=== PATIENT | female | born 1925 | race Asian ===

== ENCOUNTER 2017-03-17 16:54 | Inpatient (IN) | payer MEDICARE, MEDICAID ==
[~2017-03-17] VITALS: Ht 162.6 cm; Wt 49.9 kg
[2017-03-17] MEDS ORDERED: Vancomycin 1 GM in NS 275 ML IV ONE (17:00)
[2017-03-17] MEDS ORDERED: Cefepime HCl 1 GM in NS 55 ML IV SCH (17:00)
[2017-03-17] MEDS ORDERED: XARELTO10 MG ORAL (17:16)
[2017-03-17] MEDS ORDERED: LACTULOSE20 GM/301 ORAL (17:16)
[2017-03-17] MEDS ORDERED: TYLENOL EXTRA500 MG ORAL (17:16)
[2017-03-17] MEDS ORDERED: NEURONTIN100 MG ORAL (17:16)
[2017-03-17] MEDS ORDERED: VITAMIN D22000 UNIT PO (17:16)
[2017-03-17] MEDS ORDERED: FERROUS SULFAT325 MG ORAL (17:16)
[2017-03-17] MEDS ORDERED: JANUMET 50-5001 EACH ORAL (17:16)
[2017-03-17] MEDS ORDERED: PRILOSEC OTC20 MG ORAL (17:16)
[2017-03-17] MEDS ORDERED: DULCOLAX10 MG RC (17:16)
[2017-03-17] MEDS ORDERED: Vancomycin 1gm inj IVPB ONE (18:29)
[2017-03-17] MEDS ORDERED: Cefepime 1gm vial ONE (18:30)
--- NOTE | 2017-03-17 18:39 | Emergency Room Report ---
History of Present Illness General Chief Complaint: Altered Level of Consciousness Source: Patient, Family Member, Medical Record Present Illness HPI Patient is a 89-year-old female brought in by EMS after increased fever and altered level consciousness. Patient had been [facility] in from [facility] after increased confusion. Patient had recent hospitalization for shingles. She had previously been given approximately 8 days worth of acyclovir. Patient had been noted to have prior history of multiple blood clots and was on Xarelto. She was reported fever up to 102. The patient is normally awake and alert and able to ambulate Allergies: Coded Allergies: No Known Allergies (Unverified , 03/17/17) Patient History Past Medical History: see triage record Reviewed Nursing Documentation: PMH: Agreed, PSxH: Agreed Nursing Documentation-PMH Past Medical History: No History, Except For Hx Hypertension: Yes Hx Diabetes: Yes Review of Systems All Other Systems: negative except mentioned in HPI Physical Exam Vital Signs Date Time Temp Pulse Resp B/P (MAP) Pulse Ox O2 Delivery O2 Flow Rate FiO2 03/17/17 16:45 99.1 126 18 127/59 96 Nasal Cannula 2.0 Sp02 EP Interpretation: reviewed, normal General Appearance: normal inspection, alert, moderate distress, Chronically Ill Head: atraumatic ENT: normal ENT inspection, hearing grossly normal, normal voice Neck: normal inspection, full range of motion, supple, no bony tend Respiratory: normal inspection, lungs clear, normal breath sounds, no respiratory distress, no retraction, no wheezing Cardiovascular #1: regular rate, rhythm, no edema Gastrointestinal: normal inspection, normal bowel sounds, non tender, soft, no guarding, no hernia Genitourinary: no CVA tenderness Musculoskeletal: normal inspection, back normal, normal range of motion Neurologic: normal inspection, alert, responsive, speech normal Psychiatric: normal inspection, judgement/insight normal, mood/affect normal Skin: normal inspection, other - healed shingles rash to right side of face Medical Decision Making Diagnostic Impression: Primary Impression: Sepsis Additional Impressions: Urinary tract infection Renal insufficiency History of shingles ER Course Patient presented for fever. Differential diagnosis included wasn't limited to pneumonia, urinary tract infection, drug fever, allergic reaction, sepsis, cholecystitis, among others.Because of complexity of patient's case laboratory testing and imaging studies were ordered. Patient given IV fluid. Patient was noted to have improvement in her mental status and perfusion after IV fluids were given. Dr. Jus Cool was contacted for inpatient management due to primary care physician. Labs Test 03/17/17 17:40 03/17/17 18:00 03/17/17 18:20 Arterial Blood pH 7.441 (7.350-7.450) Arterial Blood Partial Pressure CO2 29.9 mmHg (35.0-45.0) Arterial Blood Partial Pressure O2 70.4 mmHg (75.0-100.0) Arterial Blood HCO3 19.9 mmol/L (22.0-26.0) Arterial Blood Oxygen Saturation 93.9 % (92.0-98.0) Arterial Blood Base Excess -3.3 Girma Test Positive White Blood Count 20.1 K/UL (4.8-10.8) Red Blood Count 3.43 M/UL (4.20-5.40) Hemoglobin 11.0 G/DL (12.0-16.0) Hematocrit 33.8 % (37.0-47.0) Mean Corpuscular Volume 98 FL (80-99) Mean Corpuscular Hemoglobin 32.2 PG (27.0-31.0) Mean Corpuscular Hemoglobin Concent 32.7 G/DL (32.0-36.0) Red Cell Distribution Width 13.8 % (11.6-14.8) Platelet Count 347 K/UL (150-450) Mean Platelet Volume 5.9 FL (6.5-10.1) Neutrophils (%) (Auto) % (45.0-75.0) Lymphocytes (%) (Auto) % (20.0-45.0) Monocytes (%) (Auto) % (1.0-10.0) Eosinophils (%) (Auto) % (0.0-3.0) Basophils (%) (Auto) % (0.0-2.0) Differential Total Cells Counted 100 Neutrophils % (Manual) 86 % (45-75) Lymphocytes % (Manual) 10 % (20-45) Monocytes % (Manual) 4 % (1-10) Eosinophils % (Manual) 0 % (0-3) Basophils % (Manual) 0 % (0-2) Band Neutrophils 0 % (0-8) Platelet Estimate Adequate Platelet Morphology Normal Polychromasia 1+ Anisocytosis 1+ Macrocytosis 1+ Prothrombin Time 11.3 SEC (9.30-11.50) Prothromb Time International Ratio 1.1 (0.9-1.1) Activated Partial Thromboplast Time 42 SEC (23-33) Sodium Level 135 MMOL/L (136-145) Potassium Level 4.7 MMOL/L (3.5-5.1) Chloride Level 101 MMOL/L (98-107) Carbon Dioxide Level 24 MMOL/L (21-32) Anion Gap 10 mmol/L (5-15) Blood Urea Nitrogen 41 mg/dL (7-18) Creatinine 2.9 MG/DL (0.55-1.30) Estimat Glomerular Filtration Rate mL/min (>60) Glucose Level 138 MG/DL (74-106) Lactic Acid Level 1.30 mmol/L (0.66-2.22) Calcium Level 9.1 MG/DL (8.5-10.1) Phosphorus Level 4.0 MG/DL (2.5-4.9) Magnesium Level 2.2 MG/DL (1.8-2.4) Total Bilirubin 0.6 MG/DL (0.2-1.0) Aspartate Amino Transf (AST/SGOT) 53 U/L (15-37) Alanine Aminotransferase (ALT/SGPT) 54 U/L (12-78) Alkaline Phosphatase 151 U/L (46-116) Total Creatine Kinase 15 U/L (26-308) Creatine Kinase MB < 0.5 NG/ML (0.0-3.6) Creatine Kinase MB Relative Index 3.3 Troponin I 0.000 ng/mL (0.000-0.056) Pro-B-Type Natriuretic Peptide 170 pg/mL (0-125) Total Protein 7.4 G/DL (6.4-8.2) Albumin 2.8 G/DL (3.4-5.0) Globulin 4.6 g/dL Albumin/Globulin Ratio 0.6 (1.0-2.7) Lipase 222 U/L (73-393) Urine Color Pale yellow Urine Appearance Cloudy Urine pH 6 (4.5-8.0) Urine Specific [place] 1.005 (1.005-1.035) Urine Protein 3+ (NEGATIVE) Urine Glucose (UA) Negative (NEGATIVE) Urine Ketones Negative (NEGATIVE) Urine Occult Blood 4+ (NEGATIVE) Urine Nitrite Negative (NEGATIVE) Urine Bilirubin Negative (NEGATIVE) Urine Urobilinogen Normal MG/DL (0.0-1.0) Urine Leukocyte Esterase 3+ (NEGATIVE) Urine RBC 5-10 /HPF (0 - 2) Urine WBC Tntc /HPF (0 - 2) Urine Squamous Epithelial Cells Occasional /LPF Urine Bacteria Many /HPF (NONE) EKG Diagnostic Results Rate: tachycardiac Rhythm: NSR ST Segments: no acute changes Last Vital Signs Date Time Temp Pulse Resp B/P (MAP) Pulse Ox O2 Delivery O2 Flow Rate FiO2 03/17/17 16:45 99.1 126 18 127/59 96 Nasal Cannula 2.0 Status: improved Disposition: ADMITTED INPATIENT Condition: Serious Referrals: JUS COOL (PCP) Rodo Chavarria Mar 17, 2017 18:39
[2017-03-17 18:44] VITALS: BP 117/43
[2017-03-17 18:47] LABS: HEMATOCRIT 33.8 % (37.0-47.0); MEAN CORPUSCULAR VOLUME 98 FL (80-99); PLATELET COUNT 347 K/UL (150-450); RED BLOOD COUNT 3.43 M/UL (4.20-5.40); RED CELL DISTRIBUTION WIDTH 13.8 % (11.6-14.8); WHITE BLOOD COUNT 20.1 K/UL (4.8-10.8)
[2017-03-17] MEDS ORDERED: SENOKOT8.6 MG PO (18:47)
[2017-03-17] MEDS ORDERED: DOCUSATE SODIU100 MG ORAL (18:47)
[2017-03-17 18:50] LABS: APPEARANCE,URINE CLOUDY; BILIRUBIN, URINE NEGATIVE (NEGATIVE); COLOR,URINE PALE YELLOW; GLUCOSE, URINE (UA) NEGATIVE (NEGATIVE); KETONES,URINE NEGATIVE (NEGATIVE); LEUKOCYTE ESTERASE ,URINE 3+ (NEGATIVE); NITRITE,URINE NEGATIVE (NEGATIVE); PH,URINE 6 (4.5-8.0); PROTEIN,URINE 3+ (NEGATIVE); UROBILINOGEN,URINE NORMAL MG/DL (0.0-1.0)
[2017-03-17] MEDS ORDERED: FERROUS SU220 MG/53 PO (18:52)
[2017-03-17 18:57] LABS: ANION GAP 10 mmol/L (5-15); BLOOD UREA NITROGEN 41 mg/dL (7-18); CALCIUM 9.1 MG/DL (8.5-10.1); CARBON DIOXIDE 24 MMOL/L (21-32); CHLORIDE 101 MMOL/L (98-107); CREATININE 2.9 MG/DL (0.55-1.30); POTASSIUM 4.7 MMOL/L (3.5-5.1); SODIUM 135 MMOL/L (136-145)
[2017-03-17 19:00] LABS: INR 1.1 (0.9-1.1)
[2017-03-17] MEDS ORDERED: PREDNISOLONE ACE5 ML RIGHT EYE (19:03)
[2017-03-17] MEDS ORDERED: XARELTO15 MG ORAL (19:03)
[2017-03-17] MEDS ORDERED: ERYTHROMYCIN3.5 GM BOTH EYES (19:05)
[2017-03-17 19:11] LABS: ALANINE AMINOTRANSFERASE 54 U/L (12-78); ALBUMIN 2.8 G/DL (3.4-5.0); ALBUMIN/GLOBULIN RATIO 0.6 (1.0-2.7); ALKALINE PHOSPHATASE 151 U/L (46-116); ASPARTATE AMINO TRANSFERASE 53 U/L (15-37); BILIRUBIN,TOTAL 0.6 MG/DL (0.2-1.0); CKMB < 0.5 NG/ML (0.0-3.6); CREATINE KINASE 15 U/L (26-308)
[2017-03-17 20:40] VITALS: BP 120/94
[2017-03-17 21:00] VITALS: BP 112/68
[2017-03-17] MEDS ORDERED: Sennosides 8.6mg ORAL PRN (22:30)
[2017-03-18 00:02] VITALS: BP 91/45
[2017-03-18] MEDS ORDERED: Zosyn 3.375gm inj ONE (00:17)
[2017-03-18] MEDS: Piperacillin/Tazobactam 3.375 GM in D5W 110 ML IVPB SCH ×3 (00:32→23:56)
[2017-03-18 04:00] VITALS: BP 105/56
[2017-03-18] MEDS ORDERED: Acyclovir 500mg Vial IV ONE (04:27)
[2017-03-18] MEDS: Acyclovir 500 MG in D5W 110 ML IV SCH (06:05)
[2017-03-18] MEDS: NovoLOG Insulin Flexpen SUBQ SCH ×4 (06:11→21:00)
[2017-03-18] MEDS ORDERED: NovoLOG Insulin Flexpen SUBQ SCH (06:30)
[2017-03-18 08:00] VITALS: BP 141/64
[2017-03-18] MEDS: Docusate 100mg cap ORAL SCH ×2 (08:09→17:01)
[2017-03-18] MEDS: Vitamin D 1000 IU Tab ORAL SCH (08:10)
--- NOTE | 2017-03-18 09:14 | Diagnostic Imaging Report ---
Indication: Altered mental status Technique: Continuous helical CT scanning of the head was performed utilizing automated exposure control without intravenous contrast material. Axial and coronal reconstructions were obtained. Comparison: None CT dose: Total DLP 1372 mGycm; CTDI vol 70.5 mGy Findings: There is no acute intracranial hemorrhage, mass effect or midline shift. There is low-attenuation in the left basal ganglia which likely represents sequela of ischemia, age indeterminate but likely chronic. Acute on chronic ischemia cannot be excluded. The ventricles, cisterns and sulci are prominent consistent with atrophy. Periventricular hypoattenuation is seen, a nonspecific finding. Visualized mastoid air cells and paranasal sinuses are unremarkable. No focal lesions of the bony calvarium or soft tissues of the scalp are seen. Atherosclerotic vessel calcifications noted. Impression: No evidence of acute intracranial hemorrhage, mass effect or shift. Focal low-attenuation in the left basal ganglia representing sequela of age-indeterminate ischemia, possibly chronic. Acute on chronic ischemia cannot be excluded. Correlate clinically. MRI may be obtained for more sensitive evaluation as clinically indicated. Atrophy and nonspecific periventricular hypoattenuation suggestive of chronic ischemic microvascular changes. This corresponds with the statrad preliminary report with minor discrepancy. Findings of the report discussed with the treating nurse on 2E via telephone conversation 9:00 AM on 03/18/2017. RN to convey findings to covering physician. The CT scanner at [facility] is accredited by the [employer] and the scans are performed using protocols designed to limit radiation exposure to as low as reasonably achievable to attain images of sufficient resolution adequate for diagnostic evaluation.
--- NOTE | 2017-03-18 10:15 | Diagnostic Imaging Report ---
Indication: Dyspnea Technique: XRAY Chest 1v Comparison: None Findings: Heart size within normal limits. Atherosclerotic calcifications noted in the aorta. There is patchy right basilar atelectasis. Otherwise there is no focal airspace consolidation, pleural effusion or pneumothorax. There is osteopenia and degenerative change of the spine. No acute osseous abnormality seen. Impression: Patchy right basilar atelectasis. Otherwise, no focal consolidation, pleural effusion or pneumothorax. Study obtained via the emergency department however patient admitted to the hospital at time of dictation of the final report.
[2017-03-18 11:28] LABS: HEMATOCRIT 26.3 % (37.0-47.0); HEMOGLOBIN 8.7 G/DL (12.0-16.0); MEAN CORPUSCULAR VOLUME 99 FL (80-99); PLATELET COUNT 257 K/UL (150-450); RED BLOOD COUNT 2.66 M/UL (4.20-5.40); RED CELL DISTRIBUTION WIDTH 14.3 % (11.6-14.8); WHITE BLOOD COUNT 16.6 K/UL (4.8-10.8)
[2017-03-18 11:39] LABS: ALANINE AMINOTRANSFERASE 31 U/L (12-78); ALBUMIN 2.1 G/DL (3.4-5.0); ALBUMIN/GLOBULIN RATIO 0.5 (1.0-2.7); ALKALINE PHOSPHATASE 115 U/L (46-116); ANION GAP 10 mmol/L (5-15); ASPARTATE AMINO TRANSFERASE 29 U/L (15-37); BILIRUBIN,TOTAL 0.3 MG/DL (0.2-1.0); BLOOD UREA NITROGEN 48 mg/dL (7-18); CALCIUM 7.7 MG/DL (8.5-10.1); CARBON DIOXIDE 20 MMOL/L (21-32); CHLORIDE 105 MMOL/L (98-107); CREATININE 3.1 MG/DL (0.55-1.30); POTASSIUM 4.9 MMOL/L (3.5-5.1); SODIUM 135 MMOL/L (136-145)
[2017-03-18 12:00] VITALS: BP 132/64
[2017-03-18] MEDS ORDERED: NS 500ML ONE (13:43)
[2017-03-18] MEDS ORDERED: Tubing IV Secondary IV ONE (13:43)
[2017-03-18 16:00] VITALS: BP 146/75
--- NOTE | 2017-03-18 18:00 | History and Physical Report ---
DATE OF ADMISSION: 03/18/2017 CHIEF COMPLAINT: Altered mental status and fevers. HISTORY OF PRESENT ILLNESS: The patient is an 89-year-old female. She has a history of hypertension and diabetes, who is [facility] with complaints of altered mental status, fevers, and chills. Recent history is significant for shingles on the right synagogue and face that developed on 02/20/2017. The patient was initially treated as an outpatient, but had worsening weakness and eventually had a fall. She was brought down to stay with family members in [place], but developed worsening shortness of breath and lethargy. She was taken to [facility] in [place] where she was diagnosed with a large PE. There was also concern about meningitis, but a lumbar puncture could not be performed as the patient was on anticoagulants and heparin. She was treated empirically. She improved and was eventually transferred back to alcohol rehabilitation for rehabilitation therapy. She was doing well until the day of admission, but family members noted that she was weak. She had rigors and chills and was transferred to the emergency room. On evaluation there, head CT was relatively unremarkable. There was some questionable focal low-attenuation abnormality in the left basal ganglia. The white count there was 20,000. UA had too numerous to count WBCs. Creatinine also was elevated at 2.9. The patient has been pancultured and has been started on antibiotic therapy and is now admitted for further inpatient evaluation and care. PAST MEDICAL HISTORY: As above. PAST SURGICAL HISTORY: None. CURRENT MEDICATIONS: Reconciled and reviewed. FAMILY HISTORY: None. SOCIAL HISTORY: Negative for tobacco, ethanol, or drugs. REVIEW OF SYSTEMS: Difficult to obtain as the patient is somewhat somnolent. PHYSICAL EXAMINATION: VITAL SIGNS: Temperature 99.9, pulse 132, respirations 16, and blood pressure 141/64. GENERAL: The patient is a well-developed female, in no apparent distress. She does open eyes and follow some simple commands. There is some rash and scar over the right synagogue. There are no blisters noted. NECK: Supple. There is no adenopathy. HEART: Regular rate and rhythm. LUNGS: Clear. ABDOMEN: Soft, nontender, and nondistended. EXTREMITIES: Without clubbing, cyanosis, or edema. NEUROLOGIC: The patient moves all four extremities. She does follow commands. LABORATORY DATA: White count was 20, hemoglobin 11, hematocrit 33, and platelet count of 347,000. INR was 1.1 with a PTT of 42. Sodium 135, potassium 4.7, chloride 101, bicarb 24, BUN 41, and creatinine 2.9. Lactic acid was 1.3. UA showed too numerous to count WBCs. ASSESSMENT: 1. This is a pleasant female with a history of pulmonary embolism, hypertension, diabetes, and history of recent possible viral encephalitis, admitted with fevers likely secondary to urinary tract infection, probable sepsis. 2. Urinary tract infection. 3. 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 PLAN: 1. IV hydration. 2. Broad-spectrum IV antibiotic therapy. 3. ID and Urology consultations to be obtained. 4. We will monitor renal function. 5. Check renal ultrasound. 6. Plan of care was discussed with the patient's family at the bedside. Terry Piña M.D. DR: YSABEL JOB#: [id number] CC:
[2017-03-18 20:00] VITALS: BP 130/64
[2017-03-18] MEDS ORDERED: Dyna-Hex 2% Top Sol 2oz TOPIC SCH (20:00)
[2017-03-18] MEDS: Eliquis 2.5mg tablet ORAL SCH (22:16)
[2017-03-19] VITALS: BP 127/58
[2017-03-19 04:00] VITALS: BP 142/64
[2017-03-19] MEDS: Acyclovir 500 MG in D5W 110 ML IV SCH (06:05)
[2017-03-19] MEDS: NovoLOG Insulin Flexpen SUBQ SCH ×4 (06:06→20:24)
[2017-03-19 08:00] VITALS: BP 150/74
[2017-03-19] MEDS: Eliquis 2.5mg tablet ORAL SCH ×2 (09:02→18:31)
[2017-03-19] MEDS: Vitamin D 1000 IU Tab ORAL SCH (09:02)
[2017-03-19] MEDS: Docusate 100mg cap ORAL SCH ×2 (09:02→18:32)
[2017-03-19 09:20] LABS: HEMATOCRIT 28.4 % (37.0-47.0); HEMOGLOBIN 9.2 G/DL (12.0-16.0); MEAN CORPUSCULAR VOLUME 101 FL (80-99); PLATELET COUNT 261 K/UL (150-450); RED BLOOD COUNT 2.82 M/UL (4.20-5.40); RED CELL DISTRIBUTION WIDTH 14.6 % (11.6-14.8); WHITE BLOOD COUNT 13.7 K/UL (4.8-10.8)
[2017-03-19 10:01] LABS: ALANINE AMINOTRANSFERASE 33 U/L (12-78); ALBUMIN 2.1 G/DL (3.4-5.0); ALBUMIN/GLOBULIN RATIO 0.5 (1.0-2.7); ALKALINE PHOSPHATASE 168 U/L (46-116); ANION GAP 13 mmol/L (5-15); ASPARTATE AMINO TRANSFERASE 41 U/L (15-37); BILIRUBIN,TOTAL 0.4 MG/DL (0.2-1.0); BLOOD UREA NITROGEN 55 mg/dL (7-18); CALCIUM 7.6 MG/DL (8.5-10.1); CARBON DIOXIDE 17 MMOL/L (21-32); CHLORIDE 108 MMOL/L (98-107); CREATININE 4.3 MG/DL (0.55-1.30); POTASSIUM 4.4 MMOL/L (3.5-5.1); SODIUM 138 MMOL/L (136-145)
[2017-03-19 12:00] VITALS: BP 162/93
[2017-03-19] MEDS: Piperacillin/Tazobactam 3.375 GM in D5W 110 ML IVPB SCH ×2 (12:19→23:42)
--- NOTE | 2017-03-19 12:51 | General Progress Note ---
Assessment/Plan Problem List: (1) Urinary tract infection ICD Codes: N39.0 - Urinary tract infection, site not specified SNOMED: 07468616 (2) Renal insufficiency ICD Codes: N28.9 - Disorder of kidney and ureter, unspecified SNOMED: 872538902, 070330723 (3) History of shingles ICD Codes: Z86.19 - Personal history of other infectious and parasitic diseases SNOMED: 892955108954426 (4) Sepsis ICD Codes: A41.9 - Sepsis, unspecified organism SNOMED: 25156298 Status: stable Assessment/Plan abx per id follow up cultures ivf cartwright Subjective ROS Limited/Unobtainable: No Constitutional: Reports: malaise, weakness HEENT: Reports: no symptoms Cardiovascular: Reports: no symptoms Respiratory: Reports: cough Gastrointestinal/Abdominal: Reports: no symptoms Genitourinary: Reports: no symptoms Neurologic/Psychiatric: Reports: pre-existing deficit Endocrine: Reports: no symptoms Hematologic/Lymphatic: Reports: no symptoms Allergies: Coded Allergies: No Known Allergies (Unverified , 03/17/17) All Systems: reviewed and negative except above Subjective +blood cultures with gnr. worsening renal insuff. no fevers. wbc trending down Objective Last 24 Hour Vital Signs Date Time Temp Pulse Resp B/P (MAP) Pulse Ox O2 Delivery O2 Flow Rate FiO2 03/19/17 08:00 97.5 92 20 150/74 96 Nasal Cannula 03/19/17 06:11 Nasal Cannula 3.0 32 03/19/17 06:11 97 Nasal Cannula 3.0 32 03/19/17 04:00 110 03/19/17 04:00 97.2 110 16 142/64 99 Nasal Cannula 03/19/17 00:00 99.5 115 16 127/58 96 Nasal Cannula 03/19/17 00:00 112 03/18/17 20:00 99.5 116 20 130/64 96 03/18/17 20:00 111 03/18/17 16:00 104 03/18/17 16:00 98.8 119 22 146/75 94 Nasal Cannula 2.0 Intake and Output 03/18/17 03/19/17 19:00 07:00 Intake Total 100 ml 1000 ml Balance 100 ml 1000 ml IV Total 100 ml 1000 ml # Voids 1 1 # Bowel Movements 1 1 Laboratory Tests 03/19/17 09:00: White Blood Count 13.7H, Red Blood Count 2.82L, Hemoglobin 9.2L, Hematocrit 28.4L, Mean Corpuscular Volume 101H, Mean Corpuscular Hemoglobin 32.7H, Mean Corpuscular Hemoglobin Concent 32.4, Red Cell Distribution Width 14.6, Platelet Count 261, Mean Platelet Volume 5.8L, Neutrophils (%) (Auto) , Lymphocytes (%) ( Auto) , Monocytes (%) (Auto) , Eosinophils (%) (Auto) , Basophils (%) (Auto) , Differential Total Cells Counted 100, Neutrophils % (Manual) 86H, Lymphocytes % (Manual) 5L, Monocytes % (Manual) 9, Eosinophils % (Manual) 0, Basophils % ( Manual) 0, Band Neutrophils 0, Platelet Estimate Adequate, Platelet Morphology Normal, Hypochromasia 1+, Anisocytosis 1+, Macrocytosis 1+, Sodium Level 138, Potassium Level 4.4, Chloride Level 108H, Carbon Dioxide Level 17L, Anion Gap 13 , Blood Urea Nitrogen 55H, Creatinine 4.3H, Estimat Glomerular Filtration Rate , Glucose Level 178H, Calcium Level 7.6L, Total Bilirubin 0.4, Aspartate Amino Transf (AST/SGOT) 41H, Alanine Aminotransferase (ALT/SGPT) 33, Alkaline Phosphatase 168H, Total Protein 6.5, Albumin 2.1L, Globulin 4.4, Albumin/ Globulin Ratio 0.5L Height (Feet): 5 Height (Inches): 4.00 Weight (Pounds): 110 General Appearance: WD/WN Neck: supple Cardiovascular: normal rate, regular rhythm Respiratory/Chest: chest wall non-tender, lungs clear, normal breath sounds, no respiratory distress Abdomen: normal bowel sounds, non tender, soft, no organomegaly Edema: no edema noted Arm (L), no edema noted Arm (R), no edema noted Leg (L), no edema noted Leg (R), no edema noted Pedal (L), no edema noted Pedal (R), no edema noted Generalized Neurologic: alert, responsive NOE TRAVIS Mar 19, 2017 12:51
[2017-03-19 16:00] VITALS: BP 115/56
--- NOTE | 2017-03-19 17:03 | Consultation ---
DATE OF CONSULTATION: 03/19/2017 INFECTIOUS DISEASE CONSULTATION This consult is for coverage of Dr. Chew. CONSULTING PHYSICIAN: Dewayne Whyte M.D. PRIMARY ATTENDING PHYSICIAN: Terry Piña M.D. REASON FOR CONSULT: Gram-negative sepsis, UTI. HISTORY OF PRESENT ILLNESS: This is an 89-year-old [place] female, admitted on 03/17/2017 from a correction facility because of altered mental status and fever. The patient has a temperature up to 102.4 in hospital, was tachycardic with a heart rate up to 138, had leukocytosis of 20,000 at the time of admission. PAST MEDICAL HISTORY: Significant for recent pulmonary emboli, facial herpes zoster, but the patient was also suspected for encephalitis, had diabetes mellitus and hypertension. ALLERGIES: No known drug allergies. MEDICATIONS: Apixaban, Protonix, Colace, , insulin, IV acyclovir, Zosyn, Senokot, and Tylenol. SOCIAL HISTORY: No history of alcohol, drug abuse, or smoking. . REVIEW OF SYSTEMS: The patient denies any fever, coughing, shortness of breath, or problem passing urine. PHYSICAL EXAMINATION: VITAL SIGNS: Temperature 97.5, pulse 92, and blood pressure 150/74. HEAD AND NECK: Has healed rash in the right side of the face. HEART: Regular. LUNGS: Coarse sounds. ABDOMEN: Soft and nontender. EXTREMITIES: Has no edema. NEUROLOGIC: She is awake, verbal, very slow to respond. LABORATORY AND DIAGNOSTIC DATA: WBC 16.6, hemoglobin 8.7, hematocrit 26.3, and platelets 257,000. Sodium 135, potassium 4.9, chloride 105, bicarbonate 20, BUN 48, creatinine 3.1, and glucose is 209. Urine culture growing gram-negative rods. Blood cultures : gram-negative rods. Influenza A and B were negative. Chest x-ray, acute basilar atelectasis. CT scan of the head, atrophy. IMPRESSION: 1. Gram-negative sepsis, likely secondary to urinary tract infection. or line ifection 2. The patient has a recent history of herpes zoster with suspension of encephalitis. 3. Renal failure. 4. Diabetes mellitus. 5. Hypertension. 6. Anemia. RECOMMENDATION: We will continue acyclovir & Zosyn. Midline will be removed today. We will follow up the culture. At the end of my exam, I thank Dr. Piña for involving me in the care of this patient. Dewayne Whyte M.D. DR: MICHAEL JOB#: [id number] CC: AISHA
[2017-03-19 20:00] VITALS: BP 142/69
[2017-03-20] VITALS: BP 165/83
[2017-03-20 04:00] VITALS: BP 158/75
[2017-03-20] MEDS: Acyclovir 500 MG in D5W 110 ML IV SCH (05:42)
[2017-03-20] MEDS: NovoLOG Insulin Flexpen SUBQ SCH ×4 (05:48→21:20)
[2017-03-20 08:00] VITALS: BP 161/75
[2017-03-20] MEDS: Docusate 100mg cap ORAL SCH ×2 (08:12→17:23)
[2017-03-20] MEDS: Vitamin D 1000 IU Tab ORAL SCH (08:13)
[2017-03-20] MEDS: Eliquis 2.5mg tablet ORAL SCH ×2 (08:14→17:23)
[2017-03-20 11:07] LABS: HEMATOCRIT 31.8 % (37.0-47.0); HEMOGLOBIN 10.2 G/DL (12.0-16.0); MEAN CORPUSCULAR VOLUME 100 FL (80-99); PLATELET COUNT 271 K/UL (150-450); RED BLOOD COUNT 3.17 M/UL (4.20-5.40); RED CELL DISTRIBUTION WIDTH 14.4 % (11.6-14.8); WHITE BLOOD COUNT 11.2 K/UL (4.8-10.8)
[2017-03-20] MEDS: Piperacillin/Tazobactam 3.375 GM in D5W 110 ML IVPB SCH (11:48)
[2017-03-20 11:57] LABS: ALANINE AMINOTRANSFERASE 68 U/L (12-78); ALBUMIN 2.2 G/DL (3.4-5.0); ALBUMIN/GLOBULIN RATIO 0.5 (1.0-2.7); ALKALINE PHOSPHATASE 246 U/L (46-116); ANION GAP 11 mmol/L (5-15); ASPARTATE AMINO TRANSFERASE 74 U/L (15-37); BILIRUBIN,TOTAL 0.3 MG/DL (0.2-1.0); BLOOD UREA NITROGEN 45 mg/dL (7-18); CALCIUM 8.7 MG/DL (8.5-10.1); CARBON DIOXIDE 24 MMOL/L (21-32); CHLORIDE 112 MMOL/L (98-107); CREATININE 2.9 MG/DL (0.55-1.30); POTASSIUM 3.9 MMOL/L (3.5-5.1); SODIUM 147 MMOL/L (136-145)
[2017-03-20 12:00] VITALS: BP 162/78
--- NOTE | 2017-03-20 12:43 | General Progress Note ---
Assessment/Plan Problem List: (1) Urinary tract infection ICD Codes: N39.0 - Urinary tract infection, site not specified SNOMED: 13389496 (2) Renal insufficiency ICD Codes: N28.9 - Disorder of kidney and ureter, unspecified SNOMED: 470725359, 471929227 (3) History of shingles ICD Codes: Z86.19 - Personal history of other infectious and parasitic diseases SNOMED: 994719924259658 (4) Sepsis ICD Codes: A41.9 - Sepsis, unspecified organism SNOMED: 91657130 Status: stable, progressing Assessment/Plan iv abx per id follow up cultures ivf cartwright bp rx Subjective ROS Limited/Unobtainable: No Constitutional: Reports: malaise, weakness HEENT: Reports: no symptoms Cardiovascular: Reports: no symptoms Respiratory: Reports: no symptoms Gastrointestinal/Abdominal: Reports: poor appetite Genitourinary: Reports: no symptoms Neurologic/Psychiatric: Reports: pre-existing deficit Endocrine: Reports: no symptoms Hematologic/Lymphatic: Reports: anemia Allergies: Coded Allergies: No Known Allergies (Unverified , 03/17/17) All Systems: reviewed and negative except above Subjective +blood cultures and ucx with esbl ecoli. cartwright placed with 6 liters PVR. renal fxn now improving. Objective Last 24 Hour Vital Signs Date Time Temp Pulse Resp B/P (MAP) Pulse Ox O2 Delivery O2 Flow Rate FiO2 03/20/17 12:00 97.7 105 20 162/78 98 Nasal Cannula 2.0 03/20/17 08:00 124 03/20/17 08:00 97.5 109 19 161/75 98 Nasal Cannula 2.0 03/20/17 04:00 98.1 101 18 158/75 98 Nasal Cannula 03/20/17 04:00 98 03/20/17 00:00 90 03/20/17 00:00 98.8 102 18 165/83 98 Nasal Cannula 03/19/17 20:00 97.3 96 18 142/69 100 Nasal Cannula 03/19/17 20:00 94 03/19/17 16:00 98.0 18 115/56 99 Nasal Cannula 03/19/17 16:00 85 Intake and Output 03/19/17 03/20/17 19:00 07:00 Intake Total 120 ml 310.0 ml Output Total 6100 ml Balance 120 ml -5790.0 ml Intake Oral 120 ml 100 ml IV Total 210.0 ml Output Urine Total 6100 ml # Voids 2 # Bowel Movements 1 1 Laboratory Tests 03/20/17 04:49: Urine Osmolality 284L, Urine Random Sodium 107 03/20/17 10:15: White Blood Count 11.2H, Red Blood Count 3.17L, Hemoglobin 10.2L, Hematocrit 31.8L, Mean Corpuscular Volume 100H, Mean Corpuscular Hemoglobin 32.3H, Mean Corpuscular Hemoglobin Concent 32.2, Red Cell Distribution Width 14.4, Platelet Count 271, Mean Platelet Volume 6.0L, Neutrophils (%) (Auto) , Lymphocytes (%) ( Auto) , Monocytes (%) (Auto) , Eosinophils (%) (Auto) , Basophils (%) (Auto) , Differential Total Cells Counted 100, Neutrophils % (Manual) 85H, Lymphocytes % (Manual) 7L, Monocytes % (Manual) 7, Eosinophils % (Manual) 1, Basophils % ( Manual) 0, Band Neutrophils 0, Platelet Estimate Adequate, Platelet Morphology Normal, Hypochromasia 1+, Sodium Level 147H, Potassium Level 3.9, Chloride Level 112H, Carbon Dioxide Level 24, Anion Gap 11, Blood Urea Nitrogen 45H, Creatinine 2.9H, Estimat Glomerular Filtration Rate , Glucose Level 216H, Uric Acid 4.2, Calcium Level 8.7, Total Bilirubin 0.3, Aspartate Amino Transf (AST/ SGOT) 74H, Alanine Aminotransferase (ALT/SGPT) 68, Alkaline Phosphatase 246H, Total Protein 7.0, Albumin 2.2L, Globulin 4.8, Albumin/Globulin Ratio 0.5L Height (Feet): 5 Height (Inches): 4.00 Weight (Pounds): 110 Objective General Appearance: WD/WN Neck: supple Cardiovascular: normal rate, regular rhythm Respiratory/Chest: chest wall non-tender, lungs clear, normal breath sounds, no respiratory distress Abdomen: normal bowel sounds, non tender, soft, no organomegaly Edema: no edema noted Arm (L), no edema noted Arm (R), no edema noted Leg (L), no edema noted Leg (R), no edema noted Pedal (L), no edema noted Pedal (R), no edema noted Generalized Neurologic: alert, responsive NOE TRAVIS Mar 20, 2017 12:43
--- NOTE | 2017-03-20 12:46 | Wound Care Consultation ---
Wound Assessment Wound Assessment : Wound Number: 1 Wound Present on Admission: Yes New Wound: No Status Change of Wound: No Wound Location Body Site Modif: mid Wound Location Body Site: other - Sacrococcygeal Wound Type: pressure ulcer Marilynn Test: Does not Marilynn Pressure Ulcer Stage: Deep Tissue Injury Wound Thickness: Full Thickness Wound Length: 4.5 Wound Width: 6.5 Wound Depth: utd Percent of Wound Purple/Maroon: 100 Wound Drainage Amount: None Wound Drainage Odor: None/Absent Tissue Surrounding Wound: Erythemic Wound General Appearance: Reddened - maroon Wound Comment #1 Sacrococcygeal DTI pressure ulcer Recommendation -Local wound care per protocol -Keep clean and dry -Turn and reposition -Offload both heels -Heel protector on both heels -Optimize nutrition -Low air loss mattress -Assess f/u accordingly for any changes CASIMIRO MEYERS RN Mar 20, 2017 12:46
--- NOTE | 2017-03-20 12:47 | Infectious Diseases Prog Note ---
Assessment/Plan Assessment/Plan A; E. coli ESBL sepsis E. 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 Acute renal failure Anemia P; Continue Zosyn May discontinue Acyclovir Subjective ROS Limited/Unobtainable: Yes Constitutional: Reports: no symptoms Cardiovascular: Reports: other - midline was removed Gastrointestinal/Abdominal: Reports: other - Polk catheter was placed yesterday Allergies: Coded Allergies: No Known Allergies (Unverified , 03/17/17) Objective Vital Signs Last 24 Hour Vital Signs Date Time Temp Pulse Resp B/P (MAP) Pulse Ox O2 Delivery O2 Flow Rate FiO2 03/20/17 12:00 97.7 105 20 162/78 98 Nasal Cannula 2.0 03/20/17 08:00 124 03/20/17 08:00 97.5 109 19 161/75 98 Nasal Cannula 2.0 03/20/17 04:00 98.1 101 18 158/75 98 Nasal Cannula 03/20/17 04:00 98 03/20/17 00:00 90 03/20/17 00:00 98.8 102 18 165/83 98 Nasal Cannula 03/19/17 20:00 97.3 96 18 142/69 100 Nasal Cannula 03/19/17 20:00 94 03/19/17 16:00 98.0 18 115/56 99 Nasal Cannula 03/19/17 16:00 85 Height (Feet): 5 Height (Inches): 4.00 Weight (Pounds): 110 General Appearance: no acute distress HEENT: mucous membranes moist Respiratory/Chest: lungs clear Cardiovascular: tachycardia Abdomen: soft, non tender Extremities: no edema Neurologic/Psychiatric: alert, responsive Microbiology Date/Time Source Procedure Growth Status 03/17/17 18:00 Blood Blood Culture - Final Escherichia Coli - Esbl Complete 03/17/17 17:55 Blood Blood Culture - Final Escherichia Coli - Esbl Complete 03/17/17 18:00 Nasal Nares Influenza Types A,B Antigen (HANNAH) - Final Complete 03/17/17 17:50 Nasal Nares MRSA Culture - Final NO METHICILLIN RESISTANT STAPH AUREUS... Complete 03/17/17 18:20 Urine,Clean Catch Urine Culture - Final Escherichia Coli - Esbl Complete 03/19/17 09:55 Arm Right Catheter Tip Culture - Preliminary NO GROWTH Resulted 03/17/17 17:50 Rectum VRE Culture - Final NO VANCOMYCIN RESISTANT ENTEROCOCCUS ... Complete Laboratory Tests Test 03/20/17 04:49 03/20/17 10:15 Urine Osmolality 284 mOsm/kg (429-449) L Urine Random Sodium 107 MEQ/L (20-110) White Blood Count 11.2 K/UL (4.8-10.8) H Red Blood Count 3.17 M/UL (4.20-5.40) L Hemoglobin 10.2 G/DL (12.0-16.0) L Hematocrit 31.8 % (37.0-47.0) L Mean Corpuscular Volume 100 FL (80-99) H Mean Corpuscular Hemoglobin 32.3 PG (27.0-31.0) H Mean Corpuscular Hemoglobin Concent 32.2 G/DL (32.0-36.0) Red Cell Distribution Width 14.4 % (11.6-14.8) Platelet Count 271 K/UL (150-450) Mean Platelet Volume 6.0 FL (6.5-10.1) L Neutrophils (%) (Auto) % (45.0-75.0) Lymphocytes (%) (Auto) % (20.0-45.0) Monocytes (%) (Auto) % (1.0-10.0) Eosinophils (%) (Auto) % (0.0-3.0) Basophils (%) (Auto) % (0.0-2.0) Differential Total Cells Counted 100 Neutrophils % (Manual) 85 % (45-75) H Lymphocytes % (Manual) 7 % (20-45) L Monocytes % (Manual) 7 % (1-10) Eosinophils % (Manual) 1 % (0-3) Basophils % (Manual) 0 % (0-2) Band Neutrophils 0 % (0-8) Platelet Estimate Adequate Platelet Morphology Normal Hypochromasia 1+ Sodium Level 147 MMOL/L (136-145) H Potassium Level 3.9 MMOL/L (3.5-5.1) Chloride Level 112 MMOL/L (98-107) H Carbon Dioxide Level 24 MMOL/L (21-32) Anion Gap 11 mmol/L (5-15) Blood Urea Nitrogen 45 mg/dL (7-18) H Creatinine 2.9 MG/DL (0.55-1.30) H Estimat Glomerular Filtration Rate mL/min (>60) Glucose Level 216 MG/DL (74-106) H Uric Acid 4.2 MG/DL (2.6-7.2) Calcium Level 8.7 MG/DL (8.5-10.1) Total Bilirubin 0.3 MG/DL (0.2-1.0) Aspartate Amino Transf (AST/SGOT) 74 U/L (15-37) H Alanine Aminotransferase (ALT/SGPT) 68 U/L (12-78) Alkaline Phosphatase 246 U/L (46-116) H Total Protein 7.0 G/DL (6.4-8.2) Albumin 2.2 G/DL (3.4-5.0) L Globulin 4.8 g/dL Albumin/Globulin Ratio 0.5 (1.0-2.7) L Current Medications Medications (Trade) Dose Ordered Sig/Aditi Route PRN Reason Start Time Stop Time Status Last Admin Dose Admin Acetaminophen (Tylenol) 650 mg Q4H PRN ORAL Mild Pain/Temp > 100.5 03/17/17 22:30 04/16/17 22:29 03/18/17 08:09 Acyclovir 500 mg/ Dextrose 110 ml @ 110 mls/hr Q24H IV 03/18/17 06:00 04/17/17 05:59 03/20/17 05:42 Apixaban (Eliquis) 2.5 mg BID ORAL 03/18/17 22:00 04/17/17 21:59 03/20/17 08:14 Dextrose (Dextrose 50%) STAT PRN IV Hypoglycemia 03/17/17 22:30 04/16/17 22:29 Docusate Sodium (Colace) 100 mg TWICE A DAY ORAL 03/18/17 09:00 04/17/17 08:59 03/20/17 08:12 Gabapentin (Neurontin) 100 mg TID ORAL 03/20/17 09:00 04/19/17 08:59 03/20/17 12:40 Insulin Aspart (NovoLOG) BEFORE MEALS AND HS SUBQ 03/18/17 06:30 04/17/17 06:29 03/20/17 11:28 Pantoprazole (Protonix) 40 mg DAILY ORAL 03/18/17 09:00 04/17/17 08:59 03/20/17 08:13 Piperacillin Sod/ Tazobactam Sod 3.375 gm/Dextrose 110 ml @ 27.5 mls/hr Q12H IVPB 03/18/17 00:00 03/25/17 00:00 03/20/17 11:48 Sennosides (Senokot) 1 tab DAILY PRN ORAL Constipation 03/17/17 22:30 04/16/17 22:29 Sodium Chloride 1,000 ml @ 100 mls/hr Q10H IV 03/17/17 22:30 04/16/17 22:29 03/20/17 11:35 Vitamin D (Vitamin D) 2,000 intlu DAILY ORAL 03/18/17 09:00 04/17/17 08:59 03/20/17 08:13 HANG CASTELLANOS Mar 20, 2017 12:47
--- NOTE | 2017-03-20 14:53 | Diagnostic Imaging Report ---
Indication: Acute renal failure Technique: Grayscale and duplex images of the kidneys, retroperitoneum, and bladder were obtained. Comparison: none Findings: Right kidney measures 11 cm in length. Left kidney measures 11.5 cm in length. Both kidneys demonstrate normal echogenicity. Centimeters kidneys demonstrate mild hydronephrosis. A cyst is seen in the periphery of the right kidney. No focal abnormality on the left. Normal inferior vena cava. Bladder is empty, kidneys a Polk catheter. There is questionable bladder wall thickening, although this is probably just an artifact of under distention. Impression: Mild bilateral hydronephrosis, etiology not demonstrated Empty bladder containing Polk catheter Equivocal bladder wall thickening, versus artifact of nondistention Incidental finding right renal cyst.
--- NOTE | 2017-03-20 15:15 | Progress Note ---
DATE: 03/19/2017 CARDIOLOGY PROGRESS NOTE SUBJECTIVE: The patient has remained withdrawn and somnolent most of the day. She is in no acute distress. The patient's blood cultures were positive. OBJECTIVE: VITAL SIGNS: Blood pressure 150/74, pulse 92, respirations 20, afebrile, T-max 99.5. HEENT: Healed right facial zoster. Oropharynx clear. NECK: Supple. LUNGS: With few rhonchi. CARDIAC: Regular rhythm and rate. Normal S1, S2 with a fourth heart sound. ABDOMEN: Soft and nontender. EXTREMITIES: With trace edema. LABORATORY DATA: Sodium 138, potassium 4.4, bicarbonate 17, BUN 55, creatinine 4.3, and albumin 2.1. White count 13.7 and hemoglobin 9.2. IMPRESSION: 1. Urinary tract infection. 2. Possible pneumonia. 3. Severe sepsis. 4. Bacteremia with gram-negative rods. 5. Acute on chronic renal failure, worsening. 6. Ischemic cardiomyopathy. 7. Chronic diastolic congestive heart failure. 8. Macrocytic anemia. PLAN: 1. Advance hydration. 2. Check renal ultrasound. 3. Adjust antibiotic dosing. 4. Follow up final blood cultures. 5. Follow up renal ultrasound. 6. DVT prophylaxis. 7. Pain control as needed. 8. Decrease dose of gabapentin. 9. Follow up laboratory studies. Jacobo Finney JOB#: [id number] CC:
[2017-03-20] MEDS ORDERED: 1/2 NS 1000ml IV ONE (15:27)
[2017-03-20] MEDS ORDERED: Tubing IV Secondary IV ONE (15:27)
[2017-03-20 16:00] VITALS: BP 152/80
[2017-03-20 20:00] VITALS: BP 141/72
[2017-03-21] VITALS: BP 157/86
--- NOTE | 2017-03-21 | Progress Note ---
DATE: 03/20/2017 CARDIOLOGY PROGRESS NOTE SUBJECTIVE: The patient is very fatigued with limited energy to get out of bed and eat. Appetite poor. OBJECTIVE: VITAL SIGNS: Blood pressure 162/78, pulse 105, respirations 20, and afebrile. Cultures of the blood are positive. Urine cultures with ESBL E. coli. The patient had urinary retention and Polk catheter placed with good output. LUNGS: Bilateral breath sounds. HEART: Regular rhythm and rate. Normal S1, S2. ABDOMEN: Soft. EXTREMITIES: Trace edema. LABORATORY DATA: White count 11 and hemoglobin 10. BUN 45, creatinine 2.9, sodium 147, chloride 112, and albumin 2.2. IMPRESSION: 1. Urinary tract infection with sepsis. 2. Bacteremia and recovered shock. 3. Severe protein-calorie malnutrition. 4. Dehydration. 5. Hypernatremia. 6. Hyperchloremia. 7. Acute renal failure. 8. Urinary retention. 9. Ischemic cardiomyopathy. 10. Acute on chronic diastolic congestive heart failure. PLAN: 1. Polk catheter. 2. Antimicrobials per Infectious Disease internal consultant. 3. Encourage nutrition with protein supplement. 4. Monitor volume status and cardiorenal parameters. 5. No current role for diuretic therapy. 6. Titrate antihypertensives. 7. Maintain adequate hydration with hypotonic fluids. Jus Cool M.D. DR: ANNE JOB#: [id number] CC:
[2017-03-21] MEDS: Piperacillin/Tazobactam 3.375 GM in D5W 110 ML IVPB SCH ×3 (00:24→23:46)
--- NOTE | 2017-03-21 00:30 | Consultation ---
DATE OF CONSULTATION: 03/20/2017 NEPHROLOGY CONSULTATION CONSULTING PHYSICIAN: Ravindra Ayala M.D. REFERRING PHYSICIANS: Jus Cool M.D. and Terry Piña M.D. REASON FOR CONSULTATION: Elevated BUN and creatinine. HISTORY OF PRESENT ILLNESS: History of present illness taken from discussion with the family and chart review, as the patient is unable to provide a history. The patient is an 89-year-old lady who has apparently long-standing diabetes and hypertension. She had apparently influenza like syndrome and herpes zoster around 02/20/2017. Apparently subsequently, she went to [facility] in [place] and during that hospitalization was found to have a large pulmonary emboli. There was also apparently a left basal ganglion infarct of uncertain duration. She had a creatinine of 3.2 on her prior hospitalization. On admission to this hospital, creatinine was 2.9. The family and patient are unaware of chronic kidney disease. She presents now with fever, chills, increasing confusion, pyuria, and evidence of pyelonephritis and urinary tract infection. She had leukocytosis and tachycardia on arrival. SURGERIES: None. ALLERGIES: None known. MEDICATIONS: Her prior to admission medications are reviewed on the computer. Her current medications include the following: Acyclovir, Zosyn, Tylenol, amlodipine, apixaban, DSS, gabapentin, hydralazine p.r.n., sliding scale insulin, Protonix, Senna, and vitamin D. HABITS: She is a nondrinker and nonsmoker. REVIEW OF SYSTEMS: The patient is unable. Major problems as noted above. PHYSICAL EXAMINATION: GENERAL: The patient is arousable, elderly thin lady, in no acute distress. VITAL SIGNS: Temperature 97.5 degrees, pulse 108, respirations 16, blood pressure 141/72, and O2 saturation 100%. HEAD, EYES, EARS, NOSE, AND THROAT: Sclerae are nonicteric. Ocular motions intact in all directions. Oral mucosa slightly dry. NECK: No adenopathy or thyroid enlargement. LUNGS: Clear. HEART: Regular rhythm. I hear no murmur. ABDOMEN: Soft. No organomegaly. EXTREMITIES: No edema. NEUROLOGIC: She is arousable, but confused and somewhat lethargic. Ocular motions intact in all directions. Smile symmetric. She moves all extremities. LABORATORY AND DIAGNOSTIC DATA: Pertinent labs on admission, BUN 41 and creatinine 2.9. A total CK of 15. Albumin is 2.8. Most recent BUN 45 and creatinine 2.9, and sodium is high at 147 and potassium 3.9. Uric acid is normal at 4.2. Urinalysis shows too numerous to count white blood cells and 3+ protein. Random urine sodium 107, creatinine 9.7, and urine osmolality 284. Renal ultrasound shows mild hydronephrosis and renal cysts. White count 11.2, hemoglobin 10.2. Hemoglobin has been as low as 8.7. IMPRESSION: 1. Elevated BUN and creatinine, may be chronic kidney disease stage 4 or possibly stage 5 versus acute kidney injury. I do not have a good baseline on her, but her creatinine few weeks ago was 3.2, this may chronic. Her anemia goes along with chronic kidney disease. 2. Pyelonephritis and Escherichia coli bacteremia. 3. Diabetes, adult onset and possible diabetic nephropathy. 4. Hypertensive heart disease with possible hypertensive renal disease. PLAN: We will give the patient maintenance IV fluids, as there could be some component of dehydration, although this is difficult to assess. She is being treated with appropriate antibiotics for her sepsis. Polk catheter is in place and she does have mild hydronephrosis and we will observe her response to Polk drainage, hydration, and antibiotic and avoid nephrotoxic agents. Thank you so much for allowing me to participate in the care of this patient. Ravindra Ayala M.D. DR: ALEX JOB#: [id number] CC:
[2017-03-21 04:00] VITALS: BP 161/80
[2017-03-21] MEDS: NovoLOG Insulin Flexpen SUBQ SCH ×4 (06:51→21:18)
[2017-03-21 08:00] VITALS: BP 143/79
[2017-03-21] MEDS: Vitamin D 1000 IU Tab ORAL SCH (08:26)
[2017-03-21] MEDS: Docusate 100mg cap ORAL SCH ×2 (08:26→17:46)
[2017-03-21] MEDS: Eliquis 2.5mg tablet ORAL SCH ×2 (08:26→17:46)
[2017-03-21 08:39] LABS: ALANINE AMINOTRANSFERASE 85 U/L (12-78); ALBUMIN 2.4 G/DL (3.4-5.0); ALBUMIN/GLOBULIN RATIO 0.5 (1.0-2.7); ALKALINE PHOSPHATASE 257 U/L (46-116); ANION GAP 14 mmol/L (5-15); ASPARTATE AMINO TRANSFERASE 79 U/L (15-37); BILIRUBIN,TOTAL 0.4 MG/DL (0.2-1.0); BLOOD UREA NITROGEN 38 mg/dL (7-18); CALCIUM 8.4 MG/DL (8.5-10.1); CARBON DIOXIDE 25 MMOL/L (21-32); CHLORIDE 108 MMOL/L (98-107); CREATININE 2.1 MG/DL (0.55-1.30); POTASSIUM 3.3 MMOL/L (3.5-5.1); SODIUM 146 MMOL/L (136-145)
[2017-03-21 08:56] LABS: CREATINE KINASE 14 U/L (26-308)
--- NOTE | 2017-03-21 11:59 | Infectious Diseases Prog Note ---
Assessment/Plan Assessment/Plan antibiotics : zosyn A 1. e.coli sepsis secondary to UTI 2. e.coli UTI 3. leucocytosis improving 4. renal failure improving P 1. continue zosyn 2. will follow up cultures Subjective Constitutional: Denies: fever, chills Respiratory: Denies: shortness of breath, dry cough Gastrointestinal/Abdominal: Denies: nausea, vomiting, diarrhea Musculoskeletal: Denies: pain Allergies: Coded Allergies: No Known Allergies (Unverified , 03/17/17) Objective Vital Signs Last 24 Hour Vital Signs Date Time Temp Pulse Resp B/P (MAP) Pulse Ox O2 Delivery O2 Flow Rate FiO2 03/21/17 08:26 108 143/79 03/21/17 08:00 96.2 108 18 143/79 94 Nasal Cannula 2.0 03/21/17 08:00 128 03/21/17 07:44 Nasal Cannula 3.0 32 03/21/17 07:43 93 Nasal Cannula 3.0 32 03/21/17 04:00 97.3 107 16 161/80 98 Nasal Cannula 2.0 03/21/17 04:00 104 03/21/17 00:00 98.0 101 16 157/86 100 Nasal Cannula 2.0 03/21/17 00:00 102 03/20/17 20:00 97.5 108 16 141/72 100 03/20/17 20:00 106 03/20/17 20:00 97.5 108 16 141/72 100 Nasal Cannula 2.0 03/20/17 16:00 97.2 109 22 152/80 95 Nasal Cannula 2.0 03/20/17 16:00 109 03/20/17 13:01 105 162/78 03/20/17 12:00 97.7 105 20 162/78 98 Nasal Cannula 2.0 03/20/17 12:00 101 Height (Feet): 5 Height (Inches): 4.00 Weight (Pounds): 110 Respiratory/Chest: lungs clear Cardiovascular: normal rate, regular rhythm, no gallop/murmur Abdomen: soft, non tender Extremities: no edema Microbiology Date/Time Source Procedure Growth Status 03/19/17 09:55 Arm Right Catheter Tip Culture - Preliminary NO GROWTH AFTER 48 HOURS Resulted Laboratory Tests Test 03/20/17 14:50 03/21/17 05:55 Urine Creatinine 9.7 MG/DL (30.0-125.0) L Sodium Level 146 MMOL/L (136-145) H Potassium Level 3.3 MMOL/L (3.5-5.1) L Chloride Level 108 MMOL/L (98-107) H Carbon Dioxide Level 25 MMOL/L (21-32) Anion Gap 14 mmol/L (5-15) Blood Urea Nitrogen 38 mg/dL (7-18) H Creatinine 2.1 MG/DL (0.55-1.30) H Estimat Glomerular Filtration Rate mL/min (>60) Glucose Level 152 MG/DL (74-106) H Uric Acid 3.2 MG/DL (2.6-7.2) Calcium Level 8.4 MG/DL (8.5-10.1) L Total Bilirubin 0.4 MG/DL (0.2-1.0) Aspartate Amino Transf (AST/SGOT) 79 U/L (15-37) H Alanine Aminotransferase (ALT/SGPT) 85 U/L (12-78) H Alkaline Phosphatase 257 U/L (46-116) H Total Creatine Kinase 14 U/L (26-308) L Total Protein 7.3 G/DL (6.4-8.2) Albumin 2.4 G/DL (3.4-5.0) L Globulin 4.9 g/dL Albumin/Globulin Ratio 0.5 (1.0-2.7) L DIANE DE OLIVEIRA Mar 21, 2017 11:59
[2017-03-21 12:00] VITALS: BP 140/76
--- NOTE | 2017-03-21 12:30 | General Progress Note ---
Assessment/Plan Problem List: (1) Urinary tract infection ICD Codes: N39.0 - Urinary tract infection, site not specified SNOMED: 10755477 (2) Renal insufficiency ICD Codes: N28.9 - Disorder of kidney and ureter, unspecified SNOMED: 245685628, 290302330 (3) History of shingles ICD Codes: Z86.19 - Personal history of other infectious and parasitic diseases SNOMED: 538425293676402 (4) Sepsis ICD Codes: A41.9 - Sepsis, unspecified organism SNOMED: 23861904 Status: stable, progressing Assessment/Plan iv abx per id follow up cultures ivf cartwright bp rx encourage pos replace K Subjective ROS Limited/Unobtainable: No Constitutional: Reports: malaise, weakness HEENT: Reports: no symptoms Cardiovascular: Reports: no symptoms Respiratory: Reports: no symptoms Gastrointestinal/Abdominal: Reports: no symptoms Genitourinary: Reports: no symptoms Neurologic/Psychiatric: Reports: no symptoms Endocrine: Reports: no symptoms Hematologic/Lymphatic: Reports: no symptoms Allergies: Coded Allergies: No Known Allergies (Unverified , 03/17/17) All Systems: reviewed and negative except above Subjective no events. stronger. able to eat on her own. remains on iv abx. no fevers. low k noted. Objective Last 24 Hour Vital Signs Date Time Temp Pulse Resp B/P (MAP) Pulse Ox O2 Delivery O2 Flow Rate FiO2 03/21/17 12:00 97.2 104 18 140/76 94 Room Air 03/21/17 08:26 108 143/79 03/21/17 08:00 96.2 108 18 143/79 94 Nasal Cannula 2.0 03/21/17 08:00 128 03/21/17 07:44 Nasal Cannula 3.0 32 03/21/17 07:43 93 Nasal Cannula 3.0 32 03/21/17 04:00 97.3 107 16 161/80 98 Nasal Cannula 2.0 03/21/17 04:00 104 03/21/17 00:00 98.0 101 16 157/86 100 Nasal Cannula 2.0 03/21/17 00:00 102 03/20/17 20:00 97.5 108 16 141/72 100 03/20/17 20:00 106 03/20/17 20:00 97.5 108 16 141/72 100 Nasal Cannula 2.0 03/20/17 16:00 97.2 109 22 152/80 95 Nasal Cannula 2.0 03/20/17 16:00 109 03/20/17 13:01 105 162/78 Intake and Output 03/20/17 03/21/17 19:00 07:00 Intake Total 1220.0 ml 900 ml Output Total 4000 ml 2100 ml Balance -2780.0 ml -1200 ml Intake Oral 260 ml IV Total 960.0 ml 900 ml Output Urine Total 4000 ml 2100 ml Laboratory Tests 03/20/17 14:50: Urine Creatinine 9.7L 03/21/17 05:55: Sodium Level 146H, Potassium Level 3.3L, Chloride Level 108H, Carbon Dioxide Level 25, Anion Gap 14, Blood Urea Nitrogen 38H, Creatinine 2.1H, Estimat Glomerular Filtration Rate , Glucose Level 152H, Uric Acid 3.2, Calcium Level 8.4L, Total Bilirubin 0.4, Aspartate Amino Transf (AST/SGOT) 79H, Alanine Aminotransferase (ALT/SGPT) 85H, Alkaline Phosphatase 257H, Total Creatine Kinase 14L, Total Protein 7.3, Albumin 2.4L, Globulin 4.9, Albumin/Globulin Ratio 0.5L Height (Feet): 5 Height (Inches): 4.00 Weight (Pounds): 110 Objective General Appearance: WD/WN Neck: supple Cardiovascular: normal rate, regular rhythm Respiratory/Chest: chest wall non-tender, lungs clear, normal breath sounds, no respiratory distress Abdomen: normal bowel sounds, non tender, soft, no organomegaly Edema: no edema noted Arm (L), no edema noted Arm (R), no edema noted Leg (L), no edema noted Leg (R), no edema noted Pedal (L), no edema noted Pedal (R), no edema noted Generalized Neurologic: alert, responsive NOE TRAVIS Mar 21, 2017 12:30
--- NOTE | 2017-03-21 12:41 | Nephrology Progress Note ---
Assessment/Plan Problem List: (1) Hypokalemia (2) E coli bacteremia (3) Hydronephrosis (4) FARRAH (acute kidney injury) (5) CKD (chronic kidney disease) stage 3, GFR 30-59 ml/min (6) Sepsis (7) Urinary tract infection Plan cont. iv fluids, kcl, antibiotics, keep cartwright for now Subjective ROS Limited/Unobtainable: Yes Objective Objective Last 24 Hour Vital Signs Date Time Temp Pulse Resp B/P (MAP) Pulse Ox O2 Delivery O2 Flow Rate FiO2 03/21/17 12:00 97.2 104 18 140/76 94 Room Air 03/21/17 08:26 108 143/79 03/21/17 08:00 96.2 108 18 143/79 94 Nasal Cannula 2.0 03/21/17 08:00 128 03/21/17 07:44 Nasal Cannula 3.0 32 03/21/17 07:43 93 Nasal Cannula 3.0 32 03/21/17 04:00 97.3 107 16 161/80 98 Nasal Cannula 2.0 03/21/17 04:00 104 03/21/17 00:00 98.0 101 16 157/86 100 Nasal Cannula 2.0 03/21/17 00:00 102 03/20/17 20:00 97.5 108 16 141/72 100 03/20/17 20:00 106 03/20/17 20:00 97.5 108 16 141/72 100 Nasal Cannula 2.0 03/20/17 16:00 97.2 109 22 152/80 95 Nasal Cannula 2.0 03/20/17 16:00 109 03/20/17 13:01 105 162/78 Intake and Output 03/20/17 03/21/17 19:00 07:00 Intake Total 1220.0 ml 900 ml Output Total 4000 ml 2100 ml Balance -2780.0 ml -1200 ml Intake Oral 260 ml IV Total 960.0 ml 900 ml Output Urine Total 4000 ml 2100 ml Laboratory Tests 03/20/17 14:50: Urine Creatinine 9.7L 03/21/17 05:55: Sodium Level 146H, Potassium Level 3.3L, Chloride Level 108H, Carbon Dioxide Level 25, Anion Gap 14, Blood Urea Nitrogen 38H, Creatinine 2.1H, Estimat Glomerular Filtration Rate , Glucose Level 152H, Uric Acid 3.2, Calcium Level 8.4L, Total Bilirubin 0.4, Aspartate Amino Transf (AST/SGOT) 79H, Alanine Aminotransferase (ALT/SGPT) 85H, Alkaline Phosphatase 257H, Total Creatine Kinase 14L, Total Protein 7.3, Albumin 2.4L, Globulin 4.9, Albumin/Globulin Ratio 0.5L Height (Feet): 5 Height (Inches): 4.00 Weight (Pounds): 110 General Appearance: no apparent distress, alert, confused EENT: normal ENT inspection Neck: normal alignment Cardiovascular: regular rhythm Respiratory/Chest: lungs clear Abdomen: non tender, soft Neurologic: disoriented CLAUDETTE GARCÍA Mar 21, 2017 12:41
[2017-03-21] MEDS: 1/2NS w/KCl 20mEq 1000ml 1,000 ML IV SCH (13:28)
[2017-03-21] MEDS ORDERED: Potassium Chloride 20 MEQ in 1/2 NS 1000ml 1,000 ML IV SCH (14:00)
[2017-03-21 15:41] VITALS: BP 153/75
--- NOTE | 2017-03-21 16:31 | Diagnostic Imaging Report ---
Indications: Dysphagia Technique: Patient ingested multiple substances under the supervision of speech pathology. Video fluoroscopic recording performed. Total fluoroscopy time 303 seconds. Total dose area product 0.25975 mGycm2 Comparison: none Findings: One episode of aspiration of thin liquid barium and observed prior to swallowing due to early pooling ingestion of nectar thick liquid barium demonstrates early pooling in the vallecula and piriform sinuses, with deep supraglottic laryngeal penetration no aspiration or penetration of honey thick liquid barium or barium puree Impression: Positive for aspiration of thin liquid barium and penetration of thick liquid barium Please refer to speech pathology report for more detailed analysis
[2017-03-21 20:00] VITALS: BP 143/95
[2017-03-21] MEDS: Tamsulosin 0.4mg cap ORAL SCH (21:15)
[2017-03-21] MEDS ORDERED: Metoprolol Tartrate 50mg tab ORAL ONE (22:15)
[2017-03-22] VITALS: BP 136/64
[2017-03-22] MEDS: 1/2NS w/KCl 20mEq 1000ml 1,000 ML IV SCH ×3 (02:31→17:02)
[2017-03-22 04:00] VITALS: BP 136/63
[2017-03-22] MEDS: NovoLOG Insulin Flexpen SUBQ SCH ×4 (06:01→21:49)
[2017-03-22 08:00] VITALS: BP 157/79
[2017-03-22 08:04] LABS: ALANINE AMINOTRANSFERASE 97 U/L (12-78); ALBUMIN 2.4 G/DL (3.4-5.0); ALBUMIN/GLOBULIN RATIO 0.6 (1.0-2.7); ALKALINE PHOSPHATASE 239 U/L (46-116); ANION GAP 13 mmol/L (5-15); ASPARTATE AMINO TRANSFERASE 70 U/L (15-37); BILIRUBIN,TOTAL 0.4 MG/DL (0.2-1.0); BLOOD UREA NITROGEN 28 mg/dL (7-18); CALCIUM 7.7 MG/DL (8.5-10.1); CARBON DIOXIDE 23 MMOL/L (21-32); CHLORIDE 111 MMOL/L (98-107); CREATININE 1.4 MG/DL (0.55-1.30); POTASSIUM 4.1 MMOL/L (3.5-5.1); SODIUM 147 MMOL/L (136-145)
--- NOTE | 2017-03-22 09:15 | General Progress Note ---
Assessment/Plan Problem List: (1) Urinary tract infection ICD Codes: N39.0 - Urinary tract infection, site not specified SNOMED: 99551826 (2) Renal insufficiency ICD Codes: N28.9 - Disorder of kidney and ureter, unspecified SNOMED: 158085226, 406740233 (3) History of shingles ICD Codes: Z86.19 - Personal history of other infectious and parasitic diseases SNOMED: 928330626877918 (4) Sepsis ICD Codes: A41.9 - Sepsis, unspecified organism SNOMED: 92201225 Status: stable, progressing Assessment/Plan iv abx per id follow up cultures ivf cartwright bp rx encourage pos eval called Subjective ROS Limited/Unobtainable: No Constitutional: Reports: malaise, weakness HEENT: Reports: no symptoms Cardiovascular: Reports: no symptoms Respiratory: Reports: no symptoms Gastrointestinal/Abdominal: Reports: no symptoms Genitourinary: Reports: no symptoms Neurologic/Psychiatric: Reports: pre-existing deficit Endocrine: Reports: no symptoms Hematologic/Lymphatic: Reports: anemia Allergies: Coded Allergies: No Known Allergies (Unverified , 03/17/17) All Systems: reviewed and negative except above Subjective no events. better. renal fxn better, still with cartwright. on abx. Objective Last 24 Hour Vital Signs Date Time Temp Pulse Resp B/P (MAP) Pulse Ox O2 Delivery O2 Flow Rate FiO2 03/22/17 04:00 97.2 88 16 136/63 95 Room Air 03/22/17 04:00 86 03/22/17 00:00 82 03/22/17 00:00 97.7 91 16 136/64 92 Room Air 03/21/17 22:54 98 143/95 03/21/17 20:00 98 03/21/17 20:00 97.0 103 16 143/95 95 03/21/17 16:00 95 03/21/17 15:41 97.9 94 18 153/75 95 Room Air 03/21/17 12:00 97.2 104 18 140/76 94 Room Air 03/21/17 12:00 105 Intake and Output 03/21/17 03/22/17 19:00 07:00 Intake Total 1005.0 ml 1082.5 ml Output Total 1000 ml 1000 ml Balance 5.0 ml 82.5 ml Intake Oral 220 ml 100 ml IV Total 785.0 ml 982.5 ml Output Urine Total 1000 ml 1000 ml # Voids 1 # Bowel Movements 1 Laboratory Tests 03/22/17 06:40: Sodium Level 147H, Potassium Level 4.1, Chloride Level 111H, Carbon Dioxide Level 23, Anion Gap 13, Blood Urea Nitrogen 28H, Creatinine 1.4H, Estimat Glomerular Filtration Rate , Glucose Level 146H, Calcium Level 7.7L, Total Bilirubin 0.4, Aspartate Amino Transf (AST/SGOT) 70H, Alanine Aminotransferase ( ALT/SGPT) 97H, Alkaline Phosphatase 239H, Total Protein 6.3L, Albumin 2.4L, Globulin 3.9, Albumin/Globulin Ratio 0.6L Height (Feet): 5 Height (Inches): 4.00 Weight (Pounds): 110 Objective General Appearance: WD/WN Neck: supple Cardiovascular: normal rate, regular rhythm Respiratory/Chest: chest wall non-tender, lungs clear, normal breath sounds, no respiratory distress Abdomen: normal bowel sounds, non tender, soft, no organomegaly Edema: no edema noted Arm (L), no edema noted Arm (R), no edema noted Leg (L), no edema noted Leg (R), no edema noted Pedal (L), no edema noted Pedal (R), no edema noted Generalized Neurologic: alert, responsive NOE TRAVIS Mar 22, 2017 09:15
--- NOTE | 2017-03-22 09:24 | Urology Progress Note ---
Assessment/Plan Assessment/Plan urinary retention probable neurogenic bladder (atonic) CRI/FARRAH UTI hematuria proteinuria hydronephrosis renal cyst sepsis keep cartwright for now abx as ordered flomax added voiding trial later cysto later Subjective Allergies: Coded Allergies: No Known Allergies (Unverified , 03/17/17) Subjective looks comfortable Objective Last 24 Hour Vital Signs Date Time Temp Pulse Resp B/P (MAP) Pulse Ox O2 Delivery O2 Flow Rate FiO2 03/22/17 04:00 97.2 88 16 136/63 95 Room Air 03/22/17 04:00 86 03/22/17 00:00 82 03/22/17 00:00 97.7 91 16 136/64 92 Room Air 03/21/17 22:54 98 143/95 03/21/17 20:00 98 03/21/17 20:00 97.0 103 16 143/95 95 03/21/17 16:00 95 03/21/17 15:41 97.9 94 18 153/75 95 Room Air 03/21/17 12:00 97.2 104 18 140/76 94 Room Air 03/21/17 12:00 105 Intake and Output 03/21/17 03/22/17 19:00 07:00 Intake Total 1005.0 ml 1082.5 ml Output Total 1000 ml 1000 ml Balance 5.0 ml 82.5 ml Intake Oral 220 ml 100 ml IV Total 785.0 ml 982.5 ml Output Urine Total 1000 ml 1000 ml # Voids 1 # Bowel Movements 1 Microbiology Date/Time Source Procedure Growth Status 03/17/17 18:00 Blood Blood Culture - Final Escherichia Coli - Esbl Complete 03/17/17 18:00 Nasal Nares Influenza Types A,B Antigen (HANNAH) - Final Complete 03/17/17 18:20 Urine,Clean Catch Urine Culture - Final Escherichia Coli - Esbl Complete 03/19/17 09:55 Arm Right Catheter Tip Culture - Preliminary NO GROWTH AFTER 48 HOURS Resulted Current Medications Medications (Trade) Dose Ordered Sig/Aditi Route PRN Reason Start Time Stop Time Status Last Admin Dose Admin Acetaminophen (Tylenol) 650 mg Q4H PRN ORAL Mild Pain/Temp > 100.5 03/17/17 22:30 04/16/17 22:29 03/18/17 08:09 Amlodipine Besylate (Norvasc) 5 mg DAILY ORAL 03/20/17 13:00 04/19/17 12:59 03/21/17 08:26 Apixaban (Eliquis) 2.5 mg BID ORAL 03/18/17 22:00 04/17/17 21:59 03/21/17 17:46 Dextrose (Dextrose 50%) STAT PRN IV Hypoglycemia 03/17/17 22:30 04/16/17 22:29 Docusate Sodium (Colace) 100 mg TWICE A DAY ORAL 03/18/17 09:00 04/17/17 08:59 03/21/17 17:46 Gabapentin (Neurontin) 100 mg TID ORAL 03/20/17 09:00 04/19/17 08:59 03/21/17 17:46 Hydralazine HCl (Apresoline) 10 mg Q4H PRN IV For High Blood Pressure 03/20/17 12:45 04/19/17 12:44 Insulin Aspart (NovoLOG) BEFORE MEALS AND HS SUBQ 03/18/17 06:30 04/17/17 06:29 03/22/17 06:01 Metoprolol Tartrate (Lopressor) 25 mg Q12HR ORAL 03/22/17 09:00 04/21/17 08:59 Pantoprazole (Protonix) 40 mg DAILY ORAL 03/18/17 09:00 04/17/17 08:59 03/21/17 08:26 Piperacillin Sod/ Tazobactam Sod 3.375 gm/Dextrose 110 ml @ 27.5 mls/hr Q12H IVPB 03/18/17 00:00 03/25/17 00:00 03/21/17 23:46 Sennosides (Senokot) 1 tab DAILY PRN ORAL Constipation 03/17/17 22:30 04/16/17 22:29 Sodium 1,000 ml @ 75 mls/hr [id number] IV 03/21/17 13:45 04/20/17 13:44 03/22/17 02:31 Tamsulosin HCl (Flomax) 0.4 mg BEDTIME ORAL 03/21/17 21:00 04/20/17 20:59 03/21/17 21:15 Vitamin D (Vitamin D) 2,000 intlu DAILY ORAL 03/18/17 09:00 04/17/17 08:59 03/21/17 08:26 Laboratory Tests 03/22/17 06:40: Sodium Level 147H, Potassium Level 4.1, Chloride Level 111H, Carbon Dioxide Level 23, Anion Gap 13, Blood Urea Nitrogen 28H, Creatinine 1.4H, Estimat Glomerular Filtration Rate , Glucose Level 146H, Calcium Level 7.7L, Total Bilirubin 0.4, Aspartate Amino Transf (AST/SGOT) 70H, Alanine Aminotransferase ( ALT/SGPT) 97H, Alkaline Phosphatase 239H, Total Protein 6.3L, Albumin 2.4L, Globulin 3.9, Albumin/Globulin Ratio 0.6L Height (Feet): 5 Height (Inches): 4.00 Weight (Pounds): 110 Objective exam stable ELIUD CRABTREE Mar 22, 2017 09:24
[2017-03-22] MEDS: Vitamin D 1000 IU Tab ORAL SCH (10:06)
[2017-03-22] MEDS: Eliquis 2.5mg tablet ORAL SCH ×2 (10:07→18:00)
[2017-03-22] MEDS: Docusate 100mg cap ORAL SCH (10:07)
[2017-03-22] MEDS: Metoprolol 25mg tab ORAL SCH ×2 (10:07→21:00)
[2017-03-22 12:00] VITALS: BP 151/68
[2017-03-22] MEDS ORDERED: Piperacillin/Tazobactam 3.375 GM in D5W 110 ML IVPB SCH (12:00)
--- NOTE | 2017-03-22 12:31 | Infectious Diseases Prog Note ---
Assessment/Plan Assessment/Plan antibiotics : zosyn A 1. e.coli sepsis secondary to UTI 2. e.coli UTI 3. leucocytosis improving 4. renal failure improving P 1. continue zosyn 5 more days 2. will follow up cultures Subjective ROS Limited/Unobtainable: Yes Allergies: Coded Allergies: No Known Allergies (Unverified , 03/17/17) Objective Vital Signs Last 24 Hour Vital Signs Date Time Temp Pulse Resp B/P (MAP) Pulse Ox O2 Delivery O2 Flow Rate FiO2 03/22/17 11:44 97 Room Air 21 03/22/17 11:44 Room Air 21 03/22/17 10:07 94 157/79 03/22/17 10:07 94 157/79 03/22/17 08:00 97.5 94 18 157/79 96 Room Air 03/22/17 08:00 87 03/22/17 04:00 97.2 88 16 136/63 95 Room Air 03/22/17 04:00 86 03/22/17 00:00 82 03/22/17 00:00 97.7 91 16 136/64 92 Room Air 03/21/17 22:54 98 143/95 03/21/17 20:00 98 03/21/17 20:00 97.0 103 16 143/95 95 03/21/17 16:00 95 03/21/17 15:41 97.9 94 18 153/75 95 Room Air Height (Feet): 5 Height (Inches): 4.00 Weight (Pounds): 110 HEENT: other - right forehead healing rash Respiratory/Chest: lungs clear Cardiovascular: normal rate, regular rhythm, no gallop/murmur Abdomen: soft, non tender Extremities: no edema Laboratory Tests Test 03/22/17 06:40 Sodium Level 147 MMOL/L (136-145) H Potassium Level 4.1 MMOL/L (3.5-5.1) Chloride Level 111 MMOL/L (98-107) H Carbon Dioxide Level 23 MMOL/L (21-32) Anion Gap 13 mmol/L (5-15) Blood Urea Nitrogen 28 mg/dL (7-18) H Creatinine 1.4 MG/DL (0.55-1.30) H Estimat Glomerular Filtration Rate mL/min (>60) Glucose Level 146 MG/DL (74-106) H Calcium Level 7.7 MG/DL (8.5-10.1) L Total Bilirubin 0.4 MG/DL (0.2-1.0) Aspartate Amino Transf (AST/SGOT) 70 U/L (15-37) H Alanine Aminotransferase (ALT/SGPT) 97 U/L (12-78) H Alkaline Phosphatase 239 U/L (46-116) H Total Protein 6.3 G/DL (6.4-8.2) L Albumin 2.4 G/DL (3.4-5.0) L Globulin 3.9 g/dL Albumin/Globulin Ratio 0.6 (1.0-2.7) L DIANE DE OLIVEIRA Mar 22, 2017 12:31
[2017-03-22] MEDS: Piperacillin/Tazobactam 3.375 GM in D5W 110 ML IVPB SCH (13:11)
[2017-03-22 16:00] VITALS: BP 137/67
--- NOTE | 2017-03-22 16:35 | Nephrology Progress Note ---
Assessment/Plan Problem List: (1) Hypokalemia (2) E coli bacteremia (3) Hydronephrosis (4) FARRAH (acute kidney injury) (5) CKD (chronic kidney disease) stage 3, GFR 30-59 ml/min (6) Sepsis (7) Urinary tract infection Plan cont. iv fluids, reduce rate kcl, antibiotics, keep cartwright for now Subjective ROS Limited/Unobtainable: Yes Objective Objective Last 24 Hour Vital Signs Date Time Temp Pulse Resp B/P (MAP) Pulse Ox O2 Delivery O2 Flow Rate FiO2 03/22/17 12:00 97.9 87 48 151/68 97 Room Air 03/22/17 12:00 84 03/22/17 11:44 97 Room Air 21 03/22/17 11:44 Room Air 21 03/22/17 10:07 94 157/79 03/22/17 10:07 94 157/79 03/22/17 08:00 97.5 94 18 157/79 96 Room Air 03/22/17 08:00 87 03/22/17 04:00 97.2 88 16 136/63 95 Room Air 03/22/17 04:00 86 03/22/17 00:00 82 03/22/17 00:00 97.7 91 16 136/64 92 Room Air 03/21/17 22:54 98 143/95 03/21/17 20:00 98 03/21/17 20:00 97.0 103 16 143/95 95 Intake and Output 03/21/17 03/22/17 19:00 07:00 Intake Total 1005.0 ml 1082.5 ml Output Total 1000 ml 1000 ml Balance 5.0 ml 82.5 ml Intake Oral 220 ml 100 ml IV Total 785.0 ml 982.5 ml Output Urine Total 1000 ml 1000 ml # Voids 1 # Bowel Movements 1 Laboratory Tests 03/22/17 06:40: Sodium Level 147H, Potassium Level 4.1, Chloride Level 111H, Carbon Dioxide Level 23, Anion Gap 13, Blood Urea Nitrogen 28H, Creatinine 1.4H, Estimat Glomerular Filtration Rate , Glucose Level 146H, Calcium Level 7.7L, Total Bilirubin 0.4, Aspartate Amino Transf (AST/SGOT) 70H, Alanine Aminotransferase ( ALT/SGPT) 97H, Alkaline Phosphatase 239H, Total Protein 6.3L, Albumin 2.4L, Globulin 3.9, Albumin/Globulin Ratio 0.6L Height (Feet): 5 Height (Inches): 4.00 Weight (Pounds): 110 General Appearance: lethargic EENT: normal ENT inspection Neck: normal alignment Cardiovascular: normal rate, regular rhythm Respiratory/Chest: lungs clear, normal breath sounds Abdomen: non tender Neurologic: disoriented CLAUDETTE GARCÍA Mar 22, 2017 16:35
[2017-03-22] MEDS: Docusate 100mg/10ml Liq ORAL SCH (18:00)
[2017-03-22 20:00] VITALS: BP 140/76
[2017-03-22] MEDS: Piperacillin/Tazobactam 3.375 GM in NS 110 ML IVPB SCH (21:30)
[2017-03-22] MEDS: Tamsulosin 0.4mg cap ORAL SCH (21:36)
[2017-03-22] MEDS: Megace 400mg/10ml Susp ORAL SCH (21:37)
[2017-03-23] VITALS: BP 139/67
[2017-03-23 04:00] VITALS: BP 139/67
[2017-03-23] MEDS: Piperacillin/Tazobactam 3.375 GM in NS 110 ML IVPB SCH ×3 (04:00→20:18)
--- NOTE | 2017-03-23 04:30 | Progress Note ---
DATE: 03/21/2017 CARDIOLOGY PROGRESS NOTE SUBJECTIVE: The patient remains in atrial fibrillation with increased ventricular response. OBJECTIVE: VITAL SIGNS: Blood pressure 140/76, pulse 104, respiratory rate 18, and she is afebrile. GENERAL: The patient is withdrawn and lethargic, but alert and arousable. Appetite remains poor. NECK: Supple. LUNGS: Clear. CARDIAC: Regular. Normal S1 and S2. ABDOMEN: Soft. EXTREMITIES: No edema. LABORATORY DATA: Sodium 146, potassium 3.3, bicarbonate 25, BUN 38, creatinine 2.1. Albumin 2.4. IMPRESSION: 1. Urinary tract infection. 2. Sepsis. 3. Metabolic and toxic encephalopathy. 4. Dysphagia. 5. Atrial fibrillation with rapid ventricular response. 6. Hypokalemia. 7. Dehydration. 8. Hypernatremia. 9. Urinary retention with acute renal failure. PLAN: 1. Continue Polk catheter. 2. Continue IV fluids. 3. Replace potassium. 4. Check magnesium. 5. Aspiration precautions to thin liquids. 6. Continue apixaban for cardioembolic prophylaxis and management of prior DVT. 7. Add beta-nga for rate control. 8. Antimicrobials per Infectious Diseases computer consultant. Jus Cool M.D. DR: Michel JOB#: [id number] CC:
[2017-03-23] MEDS: NovoLOG Insulin Flexpen SUBQ SCH ×4 (07:41→21:00)
[2017-03-23 08:00] VITALS: BP 149/67
[2017-03-23] MEDS: Megace 400mg/10ml Susp ORAL SCH ×2 (08:12→22:23)
[2017-03-23] MEDS: Vitamin D 1000 IU Tab ORAL SCH (08:12)
[2017-03-23] MEDS: Docusate 100mg/10ml Liq ORAL SCH ×2 (08:12→17:23)
[2017-03-23] MEDS: Pantoprazole Inj IVP SCH (08:14)
[2017-03-23] MEDS: Eliquis 2.5mg tablet ORAL SCH ×2 (08:14→17:23)
[2017-03-23] MEDS: Metoprolol 25mg tab ORAL SCH ×2 (08:14→22:22)
[2017-03-23 08:47] LABS: ANION GAP 10 mmol/L (5-15); BLOOD UREA NITROGEN 23 mg/dL (7-18); CALCIUM 7.9 MG/DL (8.5-10.1); CARBON DIOXIDE 25 MMOL/L (21-32); CHLORIDE 106 MMOL/L (98-107); CREATININE 1.4 MG/DL (0.55-1.30); POTASSIUM 3.9 MMOL/L (3.5-5.1); SODIUM 141 MMOL/L (136-145)
--- NOTE | 2017-03-23 09:13 | General Progress Note ---
Assessment/Plan Problem List: (1) Urinary tract infection ICD Codes: N39.0 - Urinary tract infection, site not specified SNOMED: 22508287 (2) Renal insufficiency ICD Codes: N28.9 - Disorder of kidney and ureter, unspecified SNOMED: 480093547, 546901096 (3) History of shingles ICD Codes: Z86.19 - Personal history of other infectious and parasitic diseases SNOMED: 441724044258036 (4) Sepsis ICD Codes: A41.9 - Sepsis, unspecified organism SNOMED: 14055628 Status: stable, progressing Assessment/Plan iv abx per id follow up cultures ivf cartwright bp rx encourage pos dc planning Subjective ROS Limited/Unobtainable: No Constitutional: Reports: malaise, weakness HEENT: Reports: no symptoms Cardiovascular: Reports: no symptoms Respiratory: Reports: no symptoms Gastrointestinal/Abdominal: Reports: no symptoms Genitourinary: Reports: no symptoms Neurologic/Psychiatric: Reports: no symptoms Endocrine: Reports: no symptoms Allergies: Coded Allergies: No Known Allergies (Unverified , 03/17/17) All Systems: reviewed and negative except above Subjective no events. better. renal fxn better, still with cartwright. on abx. now sinus. no distress Objective Last 24 Hour Vital Signs Date Time Temp Pulse Resp B/P (MAP) Pulse Ox O2 Delivery O2 Flow Rate FiO2 03/23/17 08:14 93 139/67 03/23/17 08:12 93 139/67 03/23/17 04:00 93 03/23/17 04:00 98.2 82 20 139/67 96 Room Air 03/23/17 00:00 78 03/23/17 00:00 98.2 82 20 139/67 96 Room Air 03/22/17 21:00 90 140/76 03/22/17 20:00 97.3 90 18 140/76 96 Room Air 03/22/17 20:00 85 03/22/17 16:00 97.7 90 18 137/67 95 Room Air 03/22/17 16:00 93 03/22/17 12:00 97.9 87 18 151/68 97 Room Air 03/22/17 12:00 84 03/22/17 11:44 97 Room Air 21 03/22/17 11:44 Room Air 21 03/22/17 10:07 94 157/79 03/22/17 10:07 94 157/79 Intake and Output 03/22/17 03/23/17 19:00 07:00 Intake Total 1270.0 ml Output Total 1000 ml 800 ml Balance 270.0 ml -800 ml Intake Oral 360 ml IV Total 910.0 ml Output Urine Total 1000 ml 800 ml Laboratory Tests 03/23/17 06:10: Sodium Level 141, Potassium Level 3.9, Chloride Level 106, Carbon Dioxide Level 25, Anion Gap 10, Blood Urea Nitrogen 23H, Creatinine 1.4H, Estimat Glomerular Filtration Rate , Glucose Level 128H, Calcium Level 7.9L Height (Feet): 5 Height (Inches): 4.00 Weight (Pounds): 110 Objective General Appearance: WD/WN Neck: supple Cardiovascular: normal rate, regular rhythm Respiratory/Chest: chest wall non-tender, lungs clear, normal breath sounds, no respiratory distress Abdomen: normal bowel sounds, non tender, soft, no organomegaly Edema: no edema noted Arm (L), no edema noted Arm (R), no edema noted Leg (L), no edema noted Leg (R), no edema noted Pedal (L), no edema noted Pedal (R), no edema noted Generalized Neurologic: alert, responsive NOE TRAVIS Mar 23, 2017 09:13
--- NOTE | 2017-03-23 09:19 | Urology Progress Note ---
Assessment/Plan Assessment/Plan urinary retention probable neurogenic bladder (atonic) CRI/FARRAH, improved UTI hematuria proteinuria hydronephrosis renal cyst sepsis keep cartwright for now abx as ordered flomax added monitor renal fxn voiding trial soon, once more ambulatory cysto later Subjective Allergies: Coded Allergies: No Known Allergies (Unverified , 03/17/17) Subjective looks comfortable Objective Last 24 Hour Vital Signs Date Time Temp Pulse Resp B/P (MAP) Pulse Ox O2 Delivery O2 Flow Rate FiO2 03/23/17 08:14 93 139/67 03/23/17 08:12 93 139/67 03/23/17 04:00 93 03/23/17 04:00 98.2 82 20 139/67 96 Room Air 03/23/17 00:00 78 03/23/17 00:00 98.2 82 20 139/67 96 Room Air 03/22/17 21:00 90 140/76 03/22/17 20:00 97.3 90 18 140/76 96 Room Air 03/22/17 20:00 85 03/22/17 16:00 97.7 90 18 137/67 95 Room Air 03/22/17 16:00 93 03/22/17 12:00 97.9 87 18 151/68 97 Room Air 03/22/17 12:00 84 03/22/17 11:44 97 Room Air 21 03/22/17 11:44 Room Air 21 03/22/17 10:07 94 157/79 03/22/17 10:07 94 157/79 Intake and Output 03/22/17 03/23/17 19:00 07:00 Intake Total 1270.0 ml Output Total 1000 ml 800 ml Balance 270.0 ml -800 ml Intake Oral 360 ml IV Total 910.0 ml Output Urine Total 1000 ml 800 ml Microbiology Date/Time Source Procedure Growth Status 03/17/17 18:00 Blood Blood Culture - Final Escherichia Coli - Esbl Complete 03/17/17 18:00 Nasal Nares Influenza Types A,B Antigen (HANNAH) - Final Complete 03/17/17 18:20 Urine,Clean Catch Urine Culture - Final Escherichia Coli - Esbl Complete 03/19/17 09:55 Arm Right Catheter Tip Culture - Final Complete Current Medications Medications (Trade) Dose Ordered Sig/Aditi Route PRN Reason Start Time Stop Time Status Last Admin Dose Admin Acetaminophen (Tylenol) 650 mg Q4H PRN ORAL Mild Pain/Temp > 100.5 03/17/17 22:30 04/16/17 22:29 03/18/17 08:09 Amlodipine Besylate (Norvasc) 5 mg DAILY ORAL 03/20/17 13:00 04/19/17 12:59 03/23/17 08:12 Apixaban (Eliquis) 2.5 mg BID ORAL 03/18/17 22:00 04/17/17 21:59 03/23/17 08:14 Dextrose (Dextrose 50%) STAT PRN IV Hypoglycemia 03/17/17 22:30 04/16/17 22:29 Docusate Sodium (Colace) 100 mg TWICE A DAY ORAL 03/22/17 18:00 04/21/17 17:59 03/23/17 08:12 Gabapentin (Neurontin) 100 mg TID ORAL 03/20/17 09:00 04/19/17 08:59 03/23/17 08:12 Hydralazine HCl (Apresoline) 10 mg Q4H PRN IV For High Blood Pressure 03/20/17 12:45 04/19/17 12:44 Insulin Aspart (NovoLOG) BEFORE MEALS AND HS SUBQ 03/18/17 06:30 04/17/17 06:29 03/23/17 07:41 Megestrol Acetate (Megace) 200 mg Q12HR ORAL 03/22/17 21:00 04/21/17 20:59 03/23/17 08:12 Metoprolol Tartrate (Lopressor) 25 mg Q12HR ORAL 03/22/17 09:00 04/21/17 08:59 03/23/17 08:14 Ondansetron HCl (Zofran) 4 mg Q4H PRN IVP Nausea & Vomiting 03/22/17 10:30 04/21/17 10:29 03/22/17 15:31 Pantoprazole (Protonix) 40 mg DAILY IVP 03/23/17 09:00 04/22/17 08:59 03/23/17 08:14 Piperacillin Sod/ Tazobactam Sod 3.375 gm/Sodium Chloride 110 ml @ 27.5 mls/hr Q8HR@0400,1200,2000 IVPB 03/22/17 20:00 03/29/17 19:59 03/23/17 04:00 Sennosides (Senokot) 1 tab DAILY PRN ORAL Constipation 03/17/17 22:30 04/16/17 22:29 Sodium 1,000 ml @ 50 mls/hr Q20H IV 03/22/17 17:00 04/21/17 16:59 03/22/17 17:02 Tamsulosin HCl (Flomax) 0.4 mg BEDTIME ORAL 03/21/17 21:00 04/20/17 20:59 03/22/17 21:36 Vitamin D (Vitamin D) 2,000 intlu DAILY ORAL 03/18/17 09:00 04/17/17 08:59 03/23/17 08:12 Laboratory Tests 03/23/17 06:10: Sodium Level 141, Potassium Level 3.9, Chloride Level 106, Carbon Dioxide Level 25, Anion Gap 10, Blood Urea Nitrogen 23H, Creatinine 1.4H, Estimat Glomerular Filtration Rate , Glucose Level 128H, Calcium Level 7.9L Height (Feet): 5 Height (Inches): 4.00 Weight (Pounds): 110 Objective exam stable, urine yellow with some debris ELIUD CRABTREE Mar 23, 2017 09:19
--- NOTE | 2017-03-23 09:31 | Infectious Diseases Prog Note ---
Assessment/Plan Assessment/Plan A; E. coli ESBL sepsis E. 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 Acute renal failure Anemia P; Continue Zosyn X 4 days Subjective ROS Limited/Unobtainable: Yes Allergies: Coded Allergies: No Known Allergies (Unverified , 03/17/17) Objective Vital Signs Last 24 Hour Vital Signs Date Time Temp Pulse Resp B/P (MAP) Pulse Ox O2 Delivery O2 Flow Rate FiO2 03/23/17 08:14 93 139/67 03/23/17 08:12 93 139/67 03/23/17 04:00 93 03/23/17 04:00 98.2 82 20 139/67 96 Room Air 03/23/17 00:00 78 03/23/17 00:00 98.2 82 20 139/67 96 Room Air 03/22/17 21:00 90 140/76 03/22/17 20:00 97.3 90 18 140/76 96 Room Air 03/22/17 20:00 85 03/22/17 16:00 97.7 90 18 137/67 95 Room Air 03/22/17 16:00 93 03/22/17 12:00 97.9 87 18 151/68 97 Room Air 03/22/17 12:00 84 03/22/17 11:44 97 Room Air 21 03/22/17 11:44 Room Air 21 03/22/17 10:07 94 157/79 03/22/17 10:07 94 157/79 Height (Feet): 5 Height (Inches): 4.00 Weight (Pounds): 110 General Appearance: no acute distress HEENT: mucous membranes moist Respiratory/Chest: lungs clear Cardiovascular: normal rate Abdomen: soft, non tender Extremities: no edema Neurologic/Psychiatric: alert, responsive Laboratory Tests Test 03/23/17 06:10 Sodium Level 141 MMOL/L (136-145) Potassium Level 3.9 MMOL/L (3.5-5.1) Chloride Level 106 MMOL/L (98-107) Carbon Dioxide Level 25 MMOL/L (21-32) Anion Gap 10 mmol/L (5-15) Blood Urea Nitrogen 23 mg/dL (7-18) H Creatinine 1.4 MG/DL (0.55-1.30) H Estimat Glomerular Filtration Rate mL/min (>60) Glucose Level 128 MG/DL (74-106) H Calcium Level 7.9 MG/DL (8.5-10.1) L Current Medications Medications (Trade) Dose Ordered Sig/Aditi Route PRN Reason Start Time Stop Time Status Last Admin Dose Admin Acetaminophen (Tylenol) 650 mg Q4H PRN ORAL Mild Pain/Temp > 100.5 03/17/17 22:30 04/16/17 22:29 03/18/17 08:09 Amlodipine Besylate (Norvasc) 5 mg DAILY ORAL 03/20/17 13:00 04/19/17 12:59 03/23/17 08:12 Apixaban (Eliquis) 2.5 mg BID ORAL 03/18/17 22:00 04/17/17 21:59 03/23/17 08:14 Dextrose (Dextrose 50%) STAT PRN IV Hypoglycemia 03/17/17 22:30 04/16/17 22:29 Docusate Sodium (Colace) 100 mg TWICE A DAY ORAL 03/22/17 18:00 04/21/17 17:59 03/23/17 08:12 Gabapentin (Neurontin) 100 mg TID ORAL 03/20/17 09:00 04/19/17 08:59 03/23/17 08:12 Hydralazine HCl (Apresoline) 10 mg Q4H PRN IV For High Blood Pressure 03/20/17 12:45 04/19/17 12:44 Insulin Aspart (NovoLOG) BEFORE MEALS AND HS SUBQ 03/18/17 06:30 04/17/17 06:29 03/23/17 07:41 Megestrol Acetate (Megace) 200 mg Q12HR ORAL 03/22/17 21:00 04/21/17 20:59 03/23/17 08:12 Metoprolol Tartrate (Lopressor) 25 mg Q12HR ORAL 03/22/17 09:00 04/21/17 08:59 03/23/17 08:14 Ondansetron HCl (Zofran) 4 mg Q4H PRN IVP Nausea & Vomiting 03/22/17 10:30 04/21/17 10:29 03/22/17 15:31 Pantoprazole (Protonix) 40 mg DAILY IVP 03/23/17 09:00 04/22/17 08:59 03/23/17 08:14 Piperacillin Sod/ Tazobactam Sod 3.375 gm/Sodium Chloride 110 ml @ 27.5 mls/hr Q8HR@0400,1200,2000 IVPB 03/22/17 20:00 03/29/17 19:59 03/23/17 04:00 Sennosides (Senokot) 1 tab DAILY PRN ORAL Constipation 03/17/17 22:30 04/16/17 22:29 Sodium 1,000 ml @ 50 mls/hr Q20H IV 03/22/17 17:00 04/21/17 16:59 03/22/17 17:02 Tamsulosin HCl (Flomax) 0.4 mg BEDTIME ORAL 03/21/17 21:00 04/20/17 20:59 03/22/17 21:36 Vitamin D (Vitamin D) 2,000 intlu DAILY ORAL 03/18/17 09:00 04/17/17 08:59 03/23/17 08:12 HANG CASTELLANOS Mar 23, 2017 09:31
[2017-03-23 12:00] VITALS: BP 127/62
[2017-03-23] MEDS: 1/2NS w/KCl 20mEq 1000ml 1,000 ML IV SCH ×2 (13:31→17:23)
[2017-03-23] MEDS ORDERED: Fleet's Enema 133ml RECTAL ONE ×2 (13:45→14:30)
--- NOTE | 2017-03-23 14:57 | Nephrology Progress Note ---
Assessment/Plan Problem List: (1) Hypokalemia (2) E coli bacteremia (3) Hydronephrosis (4) FARRAH (acute kidney injury) (5) CKD (chronic kidney disease) stage 3, GFR 30-59 ml/min (6) Sepsis (7) Urinary tract infection Plan cont. iv fluids, reduce rate kcl, antibiotics, keep cartwright for now, lab improving Subjective Constitutional: Reports: weakness HEENT: Reports: no symptoms Genitourinary: Reports: incontinence Neurologic/Psychiatric: Reports: no symptoms Objective Objective Last 24 Hour Vital Signs Date Time Temp Pulse Resp B/P (MAP) Pulse Ox O2 Delivery O2 Flow Rate FiO2 03/23/17 12:00 97.7 82 19 127/62 99 Nasal Cannula 03/23/17 08:14 93 139/67 03/23/17 08:12 93 139/67 03/23/17 08:00 89 03/23/17 08:00 97.5 20 149/67 97 Nasal Cannula 03/23/17 04:00 93 03/23/17 04:00 98.2 82 20 139/67 96 Room Air 03/23/17 00:00 78 03/23/17 00:00 98.2 82 20 139/67 96 Room Air 03/22/17 21:00 90 140/76 03/22/17 20:00 97.3 90 18 140/76 96 Room Air 03/22/17 20:00 85 03/22/17 16:00 97.7 90 18 137/67 95 Room Air 03/22/17 16:00 93 Intake and Output 03/22/17 03/23/17 19:00 07:00 Intake Total 1270.0 ml Output Total 1000 ml 800 ml Balance 270.0 ml -800 ml Intake Oral 360 ml IV Total 910.0 ml Output Urine Total 1000 ml 800 ml Laboratory Tests 03/23/17 06:10: Sodium Level 141, Potassium Level 3.9, Chloride Level 106, Carbon Dioxide Level 25, Anion Gap 10, Blood Urea Nitrogen 23H, Creatinine 1.4H, Estimat Glomerular Filtration Rate , Glucose Level 128H, Calcium Level 7.9L Height (Feet): 5 Height (Inches): 4.00 Weight (Pounds): 110 General Appearance: no apparent distress, lethargic EENT: normal ENT inspection Neck: normal alignment Cardiovascular: normal rate, regular rhythm Respiratory/Chest: lungs clear Abdomen: non tender, soft Extremities: other - no edema Neurologic: pump operator II-XII grossly normal CLAUDETTE GARCÍA Mar 23, 2017 14:57
[2017-03-23 16:00] VITALS: BP 117/58
--- NOTE | 2017-03-23 17:30 | Consultation ---
DATE OF CONSULTATION: 03/18/2017 CARDIOLOGY CONSULTATION CONSULTING PHYSICIAN: Jus Cool M.D. REQUESTING PHYSICIAN: Terry Piña M.D. REASON FOR CONSULTATION: Sepsis in the setting of ischemic cardiomyopathy and congestive heart failure. HISTORY OF PRESENT ILLNESS: This is an 89-year-old female recently hospitalized with facial zoster complicated by acute myocardial infarction, DVT, and pulmonary embolus, who was recently transferred for recovery to a local detention facility. Over the past day or two, she has developed worsening lethargy and high-grade fevers. She was transferred to the emergency room for evaluation and noted to have signs of an acute urinary tract infection. I have been asked to assist with further cardiovascular care in light of her recent cardiopulmonary disease. PAST MEDICAL HISTORY: 1. Osteoarthritis. 2. Degenerative disk disease. 3. Type 2 diabetes mellitus. 4. Hypertension with hypertensive heart disease. 5. Coronary artery disease with history of myocardial infarction. 6. Right-sided facial zoster. 7. Postherpetic neuralgia. 8. History of status post pulmonary embolus. 9. Rivaroxaban-associated coagulopathy. MEDICATIONS: Prior to admission, reviewed and reconciled. ALLERGIES: None known. FAMILY HISTORY: Noncontributory. SOCIAL HISTORY: Negative for smoking, alcohol, or substance abuse. REVIEW OF SYSTEMS: Not obtainable from the patient. 20 minutes time spent reviewing prior records, correction charts, and pertinent data as outlined above. PHYSICAL EXAMINATION: VITAL SIGNS: Temperature 99.9. Temperature max was 102.5. Blood pressure /64, heart rate 132, and respiratory rate 16. HEENT: Temporal wasting. Right facial zoster. Oropharynx clear. NECK: Supple. Jugular venous pressure normal. LUNGS: With coarse breath sounds. CARDIAC: Regular rhythm and rate. Normal S1 and S2 with a fourth heart sound. ABDOMEN: Soft and nontender. EXTREMITIES: Good pulses. No edema. NEUROLOGIC: Withdrawn and lethargic, but opens eyes to global communication. She is nonverbal presently. LABORATORY DATA: White count 20 and hemoglobin 11. INR 1.1. Sodium 135, creatinine 2.9, BUN 41, bicarb 24, and potassium 4.7. Lactic acid 1.3. Urinalysis with too numerous to count white cells. Chest x-ray with no acute process. EKG revealed sinus tachycardia with no acute ST-T wave changes. IMPRESSION: 1. Urinary tract infection. 2. Severe sepsis. 3. Recent zoster over the facies on the right side. 4. Status post pulmonary embolus. 5. Status post myocardial infarction. 6. Hypovolemia and dehydration. 7. Leukocytosis. 8. Acute renal failure. 9. Condition critical. Prognosis is guarded. 10. Secondary sinus tachycardia. 11. Type 2 diabetes mellitus with hyperglycemia. PLAN: 1. Panculture. 2. Broad-spectrum antibiotics. 3. Volume resuscitation. 4. Monitor volume status and cardiorenal parameters. 5. Cardiac monitoring. 6. Continue anticoagulation. 7. Titrate antihypertensives. 8. Consider beta-nga therapy with titration based on clinical parameters. 9. Insulin coverage by sliding scale. Jus Cool M.D. DR: ANNE JOB#: [id number] CC:
--- NOTE | 2017-03-23 17:30 | Consultation ---
DATE OF CONSULTATION: 03/21/2017 CONSULTING PHYSICIAN: Quang Henson M.D. REFERRING PHYSICIAN: Terry Piña M.D. REASON FOR CONSULTATION: For evaluation of urinary retention. HISTORY OF PRESENT ILLNESS: This is an 89-year-old female, she is a resident of a [facility] facility. She was admitted to the hospital with altered mental status and fevers. She was also noted to have renal insufficiency and UTI. She was noted to be in urinary retention requiring placement of a Polk catheter. Urology evaluation is requested. Most of the history was obtained from the chart. PAST MEDICAL HISTORY: Significant for history of PE, history of hypertension. She has a history of influenza on herpes zoster. PAST SURGICAL HISTORY: Unknown. CURRENT MEDICATIONS: Here in the hospital, the patient is on Norvasc, Apresoline, Neurontin, Eliquis, Protonix, Colace, vitamin E, insulin, Zosyn, Senokot, and Tylenol. ALLERGIES: No known drug allergies. SOCIAL HISTORY: She is a resident of a long term. REVIEW OF SYSTEMS: Unable to obtain. PHYSICAL EXAMINATION: GENERAL: An elderly female. VITAL SIGNS: Temperature is 97.9, blood pressure is 115/75, pulse is 94, and respirations 18. HEENT: Normocephalic. NECK: Supple. ABDOMEN: Soft. Polk is in place. Urine is yellowish nasreen. LABORATORY DATA: Shows BUN of 38, creatinine 2.1. She did have a creatinine of as high as 4.3 two days ago. I believe she does have baseline renal insufficiency, it is chronic. Potassium is 3.3. White count is 11.2, hemoglobin 10.2, and platelets are 271,000. INR is 1.1. UA showed 5 to 10 RBCs, too numerous to count WBCs, many bacteria, and 3+ protein. Her last urine culture as well as blood culture shows E. coli, which are ESBL. DIAGNOSTIC IMAGING STUDIES: The patient had a renal ultrasound, which showed mild bilateral hydronephrosis. There was a Polk catheter in the bladder. There is mention of a right renal cyst. IMPRESSION: 1. Urinary retention. 2. Probable neurogenic bladder. 3. Renal insufficiency, which appears to be acute on chronic. 4. Urinary tract infection. 5. Hematuria. 6. Proteinuria. 7. Hydronephrosis presumably secondary to bladder outlet obstruction. 8. Renal cyst. 9. Sepsis. PLAN AND DISCUSSION: Again the patient with a Polk catheter indwelling. She has had some fluctuation in her renal function, and it should be monitored with a catheter. She did have mild hydronephrosis bilaterally, which I assume from bladder distention. We can consider repeat renal imaging in the future. She is on antibiotics for her infection and sepsis. At this time, I will add Flomax 0.4 mg nightly with a voiding trial in the future. We can also consider Urecholine in the future and cystoscopy with urethral dilation. Thank you, Dr. Piña, for asking the patient in consultation. Quang Henson M.D. DR: JANEE JOB#: [id number] CC: Ravindra Ayala M.D.; Fax#: [phone] Jacobo Finney M.D.; FAX#: [phone]
--- NOTE | 2017-03-23 17:45 | Progress Note ---
DATE: 03/19/2017 CARDIOLOGY PROGRESS NOTE SUBJECTIVE: The patient is somewhat more alert, but still withdrawn and lethargic. Appetite is poor. She is in no respiratory distress. OBJECTIVE: VITAL SIGNS: Blood pressure 115/56, pulse 94, respirations 18, temperature max 99.9 degrees. HEENT: Conjunctivae pink. Sclerae are anicteric. Oropharynx clear. Mucous membranes dry. Right sided facial dry zoster changes are noted. LUNGS: Clear. CARDIAC: Regular rhythm. Rapid rate. Normal S1 and S2 with a fourth heart sound. ABDOMEN: Soft and nontender. EXTREMITIES: No edema. Capillary refill is adequate. NEUROLOGIC: No focal deficits. LABORATORY AND DIAGNOSTIC DATA: Labs are reviewed. IMPRESSION: 1. Toxic and metabolic encephalopathy. 2. Urinary tract infection with sepsis. 3. Secondary sinus tachycardia. 4. Recent pulmonary embolus, on anticoagulation with apixaban. 5. Ischemic cardiomyopathy with recent myocardial infarction. 6. Hypovolemia and dehydration. 7. Acute renal failure. PLAN: 1. Empiric antibiotics. 2. Await culture results. 3. Volume resuscitation with IV fluids. 4. Continue anticoagulation with apixaban. 5. Titrate antihypertensives. 6. Consider adjustment of antianginal regimen based on clinical parameters. 7. Encourage oral intake. 8. Swallow evaluation to follow. Jus Cool M.D. DR: SHELIA JOB#: [id number] CC:
[2017-03-23 20:00] VITALS: BP 139/66
[2017-03-23] MEDS: Tamsulosin 0.4mg cap ORAL SCH (22:22)
[2017-03-24] VITALS: BP 136/58
[2017-03-24 04:00] VITALS: BP 135/75
[2017-03-24] MEDS: Piperacillin/Tazobactam 3.375 GM in NS 110 ML IVPB SCH ×3 (04:09→23:00)
[2017-03-24] MEDS: NovoLOG Insulin Flexpen SUBQ SCH ×4 (06:13→21:00)
[2017-03-24 07:28] LABS: BASOPHILS % (AUTO) 1.6 % (0.0-2.0); HEMATOCRIT 32.2 % (37.0-47.0); HEMOGLOBIN 10.9 G/DL (12.0-16.0); MEAN CORPUSCULAR VOLUME 99 FL (80-99); MONOCYTES % (AUTO) 10.3 % (1.0-10.0); NEUTROPHILS % (AUTO) 70.2 % (45.0-75.0); PLATELET COUNT 336 K/UL (150-450); RED BLOOD COUNT 3.26 M/UL (4.20-5.40); RED CELL DISTRIBUTION WIDTH 14.3 % (11.6-14.8); WHITE BLOOD COUNT 9.7 K/UL (4.8-10.8)
[2017-03-24 07:37] LABS: ANION GAP 12 mmol/L (5-15); BLOOD UREA NITROGEN 22 mg/dL (7-18); CALCIUM 7.6 MG/DL (8.5-10.1); CARBON DIOXIDE 24 MMOL/L (21-32); CHLORIDE 109 MMOL/L (98-107); CREATININE 1.3 MG/DL (0.55-1.30); POTASSIUM 3.5 MMOL/L (3.5-5.1); SODIUM 144 MMOL/L (136-145)
[2017-03-24 08:00] VITALS: BP 146/71
[2017-03-24] MEDS: Lactulose 20gm/30ml UDC ORAL SCH ×3 (09:03→18:02)
[2017-03-24] MEDS: Megace 400mg/10ml Susp ORAL SCH ×2 (09:03→22:33)
[2017-03-24] MEDS: Docusate 100mg/10ml Liq ORAL SCH ×2 (09:03→17:41)
[2017-03-24] MEDS: Eliquis 2.5mg tablet ORAL SCH (09:04)
[2017-03-24] MEDS: Metoprolol 25mg tab ORAL SCH ×2 (09:04→22:34)
[2017-03-24] MEDS: Vitamin D 1000 IU Tab ORAL SCH (09:04)
[2017-03-24] MEDS: Pantoprazole Inj IVP SCH (09:04)
[2017-03-24] MEDS ORDERED: Magnesium Citrate Liq Btl ORAL ONE (11:00)
--- NOTE | 2017-03-24 12:17 | Urology Progress Note ---
Assessment/Plan Assessment/Plan urinary retention probable neurogenic bladder (atonic) CRI/FARRAH, improved UTI hematuria proteinuria hydronephrosis renal cyst sepsis keep cartwright for now abx as ordered flomax added monitor renal fxn voiding trial soon, once more ambulatory cysto later Subjective Allergies: Coded Allergies: No Known Allergies (Unverified , 03/17/17) Subjective looks comfortable Objective Last 24 Hour Vital Signs Date Time Temp Pulse Resp B/P (MAP) Pulse Ox O2 Delivery O2 Flow Rate FiO2 03/24/17 09:04 98 146/71 03/24/17 09:04 98 146/71 03/24/17 08:00 81 03/24/17 08:00 97.8 98 20 146/71 97 03/24/17 04:00 79 03/24/17 04:00 97.7 88 18 135/75 97 03/24/17 00:00 98.4 65 16 136/58 98 03/24/17 00:00 87 03/23/17 22:22 89 139/66 03/23/17 21:00 Nasal Cannula 2.0 28 03/23/17 21:00 99 Nasal Cannula 2.0 28 03/23/17 20:00 97.9 89 16 139/66 99 03/23/17 20:00 89 03/23/17 16:00 87 03/23/17 16:00 97.7 75 19 117/58 99 Nasal Cannula Intake and Output 03/23/17 03/24/17 19:00 07:00 Intake Total 382 ml 602.5 ml Output Total 1250 ml 500 ml Balance -868 ml 102.5 ml Intake Oral 352 ml 50 ml IV Total 30 ml 552.5 ml Output Urine Total 1250 ml 500 ml Microbiology Date/Time Source Procedure Growth Status 03/17/17 18:00 Blood Blood Culture - Final Escherichia Coli - Esbl Complete 03/17/17 18:00 Nasal Nares Influenza Types A,B Antigen (HANNAH) - Final Complete 03/23/17 16:30 Indwelling Cath Urine Culture - Preliminary NO GROWTH Resulted 03/19/17 09:55 Arm Right Catheter Tip Culture - Final NO GROWTH AFTER 4 DAYS Complete Current Medications Medications (Trade) Dose Ordered Sig/Aditi Route PRN Reason Start Time Stop Time Status Last Admin Dose Admin Acetaminophen (Tylenol) 650 mg Q4H PRN ORAL Mild Pain/Temp > 100.5 03/17/17 22:30 04/16/17 22:29 03/18/17 08:09 Amlodipine Besylate (Norvasc) 5 mg DAILY ORAL 03/20/17 13:00 04/19/17 12:59 03/24/17 09:04 Apixaban (Eliquis) 2.5 mg BID ORAL 03/18/17 22:00 04/17/17 21:59 03/24/17 09:04 Dextrose (Dextrose 50%) STAT PRN IV Hypoglycemia 03/17/17 22:30 04/16/17 22:29 Diphenhydramine HCl (Benadryl) 25 mg Q8H PRN ORAL Itching 03/23/17 13:15 04/22/17 13:14 Docusate Sodium (Colace) 100 mg TWICE A DAY ORAL 03/22/17 18:00 04/21/17 17:59 03/24/17 09:03 Gabapentin (Neurontin) 100 mg TID ORAL 03/20/17 09:00 04/19/17 08:59 03/24/17 09:04 Hydralazine HCl (Apresoline) 10 mg Q4H PRN IV For High Blood Pressure 03/20/17 12:45 04/19/17 12:44 Insulin Aspart (NovoLOG) BEFORE MEALS AND HS SUBQ 03/18/17 06:30 04/17/17 06:29 03/23/17 12:45 Lactulose (Cephulac) 30 gm THREE TIMES A DAY ORAL 03/24/17 09:00 04/23/17 08:59 03/24/17 09:03 Megestrol Acetate (Megace) 200 mg Q12HR ORAL 03/22/17 21:00 04/21/17 20:59 03/24/17 09:03 Metoprolol Tartrate (Lopressor) 25 mg Q12HR ORAL 03/22/17 09:00 04/21/17 08:59 03/24/17 09:04 Ondansetron HCl (Zofran) 4 mg Q4H PRN IVP Nausea & Vomiting 03/22/17 10:30 04/21/17 10:29 03/23/17 20:18 Pantoprazole (Protonix) 40 mg DAILY IVP 03/23/17 09:00 04/22/17 08:59 03/24/17 09:04 Piperacillin Sod/ Tazobactam Sod 3.375 gm/Sodium Chloride 110 ml @ 27.5 mls/hr Q8HR@0400,1200,2000 IVPB 03/22/17 20:00 03/29/17 19:59 03/24/17 04:09 Sennosides (Senokot) 1 tab DAILY PRN ORAL Constipation 03/17/17 22:30 04/16/17 22:29 Sodium 1,000 ml @ 30 mls/hr Q24H IV 03/23/17 17:00 04/22/17 16:59 03/23/17 17:23 Tamsulosin HCl (Flomax) 0.4 mg BEDTIME ORAL 03/21/17 21:00 04/20/17 20:59 03/23/17 22:22 Vitamin D (Vitamin D) 2,000 intlu DAILY ORAL 03/18/17 09:00 04/17/17 08:59 03/24/17 09:04 Laboratory Tests 03/24/17 06:40: White Blood Count 9.7, Red Blood Count 3.26L, Hemoglobin 10.9L, Hematocrit 32.2L , Mean Corpuscular Volume 99, Mean Corpuscular Hemoglobin 33.4H, Mean Corpuscular Hemoglobin Concent 33.9, Red Cell Distribution Width 14.3, Platelet Count 336, Mean Platelet Volume 6.4L, Neutrophils (%) (Auto) 70.2, Lymphocytes ( %) (Auto) 16.0L, Monocytes (%) (Auto) 10.3H, Eosinophils (%) (Auto) 2.0, Basophils (%) (Auto) 1.6, Sodium Level 144, Potassium Level 3.5, Chloride Level 109H, Carbon Dioxide Level 24, Anion Gap 12, Blood Urea Nitrogen 22H, Creatinine 1.3, Estimat Glomerular Filtration Rate , Glucose Level 106, Calcium Level 7.6L, Magnesium Level 1.3L Height (Feet): 5 Height (Inches): 4.00 Weight (Pounds): 110 Objective exam stable, urine yellow with some debris ELIUD CRABTREE Mar 24, 2017 12:17
--- NOTE | 2017-03-24 12:23 | Infectious Diseases Prog Note ---
Assessment/Plan Assessment/Plan antibiotics : zosyn A 1. e.coli sepsis secondary to UTI 2. e.coli UTI 3. leucocytosis improving 4. renal failure improving P 1. continue zosyn 3 more days 2. will follow up cultures Subjective Constitutional: Denies: fever, chills Respiratory: Denies: shortness of breath, dry cough Gastrointestinal/Abdominal: Denies: nausea, vomiting, diarrhea Musculoskeletal: Denies: pain Allergies: Coded Allergies: No Known Allergies (Unverified , 03/17/17) Objective Vital Signs Last 24 Hour Vital Signs Date Time Temp Pulse Resp B/P (MAP) Pulse Ox O2 Delivery O2 Flow Rate FiO2 03/24/17 09:04 98 146/71 03/24/17 09:04 98 146/71 03/24/17 08:00 81 03/24/17 08:00 97.8 98 20 146/71 97 03/24/17 04:00 79 03/24/17 04:00 97.7 88 18 135/75 97 03/24/17 00:00 98.4 65 16 136/58 98 03/24/17 00:00 87 03/23/17 22:22 89 139/66 03/23/17 21:00 Nasal Cannula 2.0 28 03/23/17 21:00 99 Nasal Cannula 2.0 28 03/23/17 20:00 97.9 89 16 139/66 99 03/23/17 20:00 89 03/23/17 16:00 87 03/23/17 16:00 97.7 75 19 117/58 99 Nasal Cannula Height (Feet): 5 Height (Inches): 4.00 Weight (Pounds): 110 Respiratory/Chest: lungs clear Cardiovascular: normal rate, regular rhythm, no gallop/murmur Abdomen: soft, non tender Extremities: no edema Microbiology Date/Time Source Procedure Growth Status 03/23/17 16:30 Indwelling Cath Urine Culture - Preliminary NO GROWTH Resulted Laboratory Tests Test 03/24/17 06:40 White Blood Count 9.7 K/UL (4.8-10.8) Red Blood Count 3.26 M/UL (4.20-5.40) L Hemoglobin 10.9 G/DL (12.0-16.0) L Hematocrit 32.2 % (37.0-47.0) L Mean Corpuscular Volume 99 FL (80-99) Mean Corpuscular Hemoglobin 33.4 PG (27.0-31.0) H Mean Corpuscular Hemoglobin Concent 33.9 G/DL (32.0-36.0) Red Cell Distribution Width 14.3 % (11.6-14.8) Platelet Count 336 K/UL (150-450) Mean Platelet Volume 6.4 FL (6.5-10.1) L Neutrophils (%) (Auto) 70.2 % (45.0-75.0) Lymphocytes (%) (Auto) 16.0 % (20.0-45.0) L Monocytes (%) (Auto) 10.3 % (1.0-10.0) H Eosinophils (%) (Auto) 2.0 % (0.0-3.0) Basophils (%) (Auto) 1.6 % (0.0-2.0) Sodium Level 144 MMOL/L (136-145) Potassium Level 3.5 MMOL/L (3.5-5.1) Chloride Level 109 MMOL/L (98-107) H Carbon Dioxide Level 24 MMOL/L (21-32) Anion Gap 12 mmol/L (5-15) Blood Urea Nitrogen 22 mg/dL (7-18) H Creatinine 1.3 MG/DL (0.55-1.30) Estimat Glomerular Filtration Rate mL/min (>60) Glucose Level 106 MG/DL (74-106) Calcium Level 7.6 MG/DL (8.5-10.1) L Magnesium Level 1.3 MG/DL (1.8-2.4) DIANE NEWELL Mar 24, 2017 12:23
--- NOTE | 2017-03-24 12:55 | Progress Note ---
DATE: 03/22/2017 CARDIOLOGY PROGRESS NOTE SUBJECTIVE: The patient has some discomfort in her chest this evening, it resolved spontaneously. She did not have any shortness of breath. She still has a Polk catheter. Renal parameters have improved. OBJECTIVE: VITAL SIGNS: Blood pressure 136/63, heart rate 88, respiratory 16 and afebrile. NECK: Supple. LUNGS: Clear. CARDIAC: Regular rhythm and rate. Normal S1 and S2 with a 1/6 systolic murmur at the base. ABDOMEN: Soft and nontender. EXTREMITIES: No edema. LABORATORY AND DIAGNOSTIC DATA: Sodium 147, potassium 4.1, BUN 28 and creatinine 1.4. Albumin 2.4. Urine culture is ESBL E. coli. IMPRESSION: 1. Extended spectrum beta-lactamases Escherichia coli urinary tract infection with sepsis. 2. Urinary retention. 3. Acute renal failure. 4. Hypertensive heart disease. 5. Dehydration. 6. Hyponatremia. 7. Hydronephrosis. 8. Neurogenic bladder. 9. Diabetes mellitus type 2. PLAN: 1. Antimicrobials. 2. Hypotonic fluids. 3. Flomax added. 4. Voiding trial to follow. 5. Continue current cardiovascular regimen. Jus Cool M.D. DR: SHELIA JOB#: [id number] CC:
[2017-03-24 16:58] VITALS: BP 118/61
--- NOTE | 2017-03-24 17:04 | General Progress Note ---
Assessment/Plan Assessment/Plan GI Consult Dictated Will order CT to evaluate abnormal LFT EGD Monday am for abdominal pain change Eliquis to IV heparin over weekend PPI Thank you Frankie Jasmine Subjective Allergies: Coded Allergies: No Known Allergies (Unverified , 03/17/17) Objective Last 24 Hour Vital Signs Date Time Temp Pulse Resp B/P (MAP) Pulse Ox O2 Delivery O2 Flow Rate FiO2 03/24/17 09:04 98 146/71 03/24/17 09:04 98 146/71 03/24/17 08:00 81 03/24/17 08:00 97.8 98 20 146/71 97 03/24/17 04:00 79 03/24/17 04:00 97.7 88 18 135/75 97 03/24/17 00:00 98.4 65 16 136/58 98 03/24/17 00:00 87 03/23/17 22:22 89 139/66 03/23/17 21:00 Nasal Cannula 2.0 28 03/23/17 21:00 99 Nasal Cannula 2.0 28 03/23/17 20:00 97.9 89 16 139/66 99 03/23/17 20:00 89 Intake and Output 03/23/17 03/24/17 19:00 07:00 Intake Total 382 ml 602.5 ml Output Total 1250 ml 500 ml Balance -868 ml 102.5 ml Intake Oral 352 ml 50 ml IV Total 30 ml 552.5 ml Output Urine Total 1250 ml 500 ml Laboratory Tests 03/24/17 06:40: White Blood Count 9.7, Red Blood Count 3.26L, Hemoglobin 10.9L, Hematocrit 32.2L , Mean Corpuscular Volume 99, Mean Corpuscular Hemoglobin 33.4H, Mean Corpuscular Hemoglobin Concent 33.9, Red Cell Distribution Width 14.3, Platelet Count 336, Mean Platelet Volume 6.4L, Neutrophils (%) (Auto) 70.2, Lymphocytes ( %) (Auto) 16.0L, Monocytes (%) (Auto) 10.3H, Eosinophils (%) (Auto) 2.0, Basophils (%) (Auto) 1.6, Sodium Level 144, Potassium Level 3.5, Chloride Level 109H, Carbon Dioxide Level 24, Anion Gap 12, Blood Urea Nitrogen 22H, Creatinine 1.3, Estimat Glomerular Filtration Rate , Glucose Level 106, Calcium Level 7.6L, Magnesium Level 1.3L Height (Feet): 5 Height (Inches): 4.00 Weight (Pounds): 110 BHARATHI JASMINE Mar 24, 2017 17:04
--- NOTE | 2017-03-24 17:14 | Nephrology Progress Note ---
Assessment/Plan Problem List: (1) Hypokalemia (2) E coli bacteremia (3) Hydronephrosis (4) FARRAH (acute kidney injury) (5) CKD (chronic kidney disease) stage 3, GFR 30-59 ml/min (6) Sepsis (7) Urinary tract infection Plan cont. iv fluids, reduce rate kcl, antibiotics, keep cartwright for now, lab improving , nausea and anorexia, stop gabapentin possible adverse effect Subjective ROS Limited/Unobtainable: Yes Objective Objective Last 24 Hour Vital Signs Date Time Temp Pulse Resp B/P (MAP) Pulse Ox O2 Delivery O2 Flow Rate FiO2 03/24/17 16:58 97.9 75 19 118/61 99 03/24/17 09:04 98 146/71 03/24/17 09:04 98 146/71 03/24/17 08:00 81 03/24/17 08:00 97.8 98 20 146/71 97 03/24/17 04:00 79 03/24/17 04:00 97.7 88 18 135/75 97 03/24/17 00:00 98.4 65 16 136/58 98 03/24/17 00:00 87 03/23/17 22:22 89 139/66 03/23/17 21:00 Nasal Cannula 2.0 28 03/23/17 21:00 99 Nasal Cannula 2.0 28 03/23/17 20:00 97.9 89 16 139/66 99 03/23/17 20:00 89 Intake and Output 03/23/17 03/24/17 19:00 07:00 Intake Total 382 ml 602.5 ml Output Total 1250 ml 500 ml Balance -868 ml 102.5 ml Intake Oral 352 ml 50 ml IV Total 30 ml 552.5 ml Output Urine Total 1250 ml 500 ml Laboratory Tests 03/24/17 06:40: White Blood Count 9.7, Red Blood Count 3.26L, Hemoglobin 10.9L, Hematocrit 32.2L , Mean Corpuscular Volume 99, Mean Corpuscular Hemoglobin 33.4H, Mean Corpuscular Hemoglobin Concent 33.9, Red Cell Distribution Width 14.3, Platelet Count 336, Mean Platelet Volume 6.4L, Neutrophils (%) (Auto) 70.2, Lymphocytes ( %) (Auto) 16.0L, Monocytes (%) (Auto) 10.3H, Eosinophils (%) (Auto) 2.0, Basophils (%) (Auto) 1.6, Sodium Level 144, Potassium Level 3.5, Chloride Level 109H, Carbon Dioxide Level 24, Anion Gap 12, Blood Urea Nitrogen 22H, Creatinine 1.3, Estimat Glomerular Filtration Rate , Glucose Level 106, Calcium Level 7.6L, Magnesium Level 1.3L Height (Feet): 5 Height (Inches): 4.00 Weight (Pounds): 110 General Appearance: lethargic EENT: normal ENT inspection Neck: normal alignment Cardiovascular: normal rate Respiratory/Chest: lungs clear Abdomen: soft, no organomegaly Neurologic: disoriented CLAUDETTE GARCÍA Mar 24, 2017 17:14
[2017-03-24] MEDS: 1/2NS w/KCl 20mEq 1000ml 1,000 ML IV SCH (17:42)
[2017-03-24 17:54] LABS: BASOPHILS % (AUTO) 1.7 % (0.0-2.0); EOSINOPHILS % (AUTO) 1.5 % (0.0-3.0); HEMATOCRIT 32.3 % (37.0-47.0); HEMOGLOBIN 10.9 G/DL (12.0-16.0); LYMPHOCYTES % (AUTO) 16.6 % (20.0-45.0); MEAN CORPUSCULAR VOLUME 98 FL (80-99); MONOCYTES % (AUTO) 10.7 % (1.0-10.0); NEUTROPHILS % (AUTO) 69.5 % (45.0-75.0); PLATELET COUNT 379 K/UL (150-450); RED BLOOD COUNT 3.29 M/UL (4.20-5.40); WHITE BLOOD COUNT 9.3 K/UL (4.8-10.8)
[2017-03-24] MEDS: Magnesium Oxide 400mg tab ORAL SCH (18:01)
--- NOTE | 2017-03-24 18:30 | Progress Note ---
DATE: 03/23/2017 CARDIOLOGY PROGRESS NOTE SUBJECTIVE: The patient is alert. No chest pain or shortness of breath. Appetite is poor, but improved. She remains on IV fluids. She continued to have a Polk catheter in for drainage of urine in view of urinary retention. OBJECTIVE: VITAL SIGNS: Blood pressure 127/62, pulse 82, respirations 19, and afebrile. LUNGS: With clear breath sounds. CARDIAC: Regular rhythm rate. Normal S1 and S2. ABDOMEN: Soft. EXTREMITIES: No edema. LABORATORY DATA: Sodium 141, potassium 3.9, BUN 23, and creatinine 1.4. IMPRESSION: 1. Acute renal failure, resolving. 2. Urinary retention with Polk catheter. 3. Now, status post facial zoster on the right. 4. Ischemic and hypertensive cardiomyopathy. 5. Status post pulmonary embolus on full anticoagulation. 6. Urinary tract infection with sepsis, recovering. PLAN: Antibiotics. IV fluids. Polk catheter. Full anticoagulation. Titrate antihypertensives. Jus Cool M.D. : BARBARA JOB#: [id number] CC:
[2017-03-24 20:00] VITALS: BP 148/65
[2017-03-24] MEDS: Tamsulosin 0.4mg cap ORAL SCH (22:34)
[2017-03-24] MEDS: Heparin 25,000u/D5W 500ml 500 ML IV SCH (22:50)
[2017-03-25] VITALS: BP 148/61
[2017-03-25 04:00] VITALS: BP 130/58
--- NOTE | 2017-03-25 04:30 | Consultation ---
DATE OF CONSULTATION: 03/24/2017 CHIEF COMPLAINT: I was asked to see this patient by Dr. Terry Piña for evaluation of abdominal discomfort, abnormal liver tests, and poor oral intake. HISTORY OF PRESENT ILLNESS: The patient is a debilitated 89-year-old [place] woman who was living independently in a good state of health until she recently had an episode of shingles on her right face. She was managed as an outpatient but subsequently was admitted to the hospital in [place] when she got weak and fell, then she became lethargic and she was sent to a longterm in [place] for recovery. In the meantime, she was also diagnosed with large pulmonary embolism in [place] and was placed on anticoagulation. There was a concern for meningitis but lumbar puncture could not be performed because of anticoagulation. She was treated empirically and she improved. However, at [facility], the patient was noted to be doing poorly and eating poorly. The CT scan obtained in the emergency room here was negative but the patient continues to eat poorly. She had an initial white count that was elevated as well as creatinine. She has been pancultured and placed on antibiotics and hydrated and she is doing better, however, her oral intake is poor and swallow study is marginal. She complains of epigastric abdominal pain and burning. She has had abnormal liver tests. PAST MEDICAL HISTORY: History of pulmonary embolism, right facial shingles. FAMILY HISTORY: Noncontributory. SOCIAL HISTORY: The patient does not smoke or drink alcohol. MEDICATIONS: See chart list for details. REVIEW OF SYSTEMS: Otherwise negative. PHYSICAL EXAMINATION: GENERAL: Debilitated [place] woman seen with family at bedside. HEENT: Normocephalic and atraumatic. There was a right facial rash from a recent shingles. NECK: Supple. CHEST: Clear to auscultation. CARDIOVASCULAR: Revealed regular rate. ABDOMEN: Soft with mild epigastric abdominal tenderness to palpation without guarding or rebound. EXTREMITIES: Revealed no edema. LABORATORY DATA: Were noted. ASSESSMENT: This patient has had multiple events recently which resulted in significant degree of debilitation, weakness, and poor oral intake. The etiology of this patient's abnormal liver tests is unclear and it may related to her white count elevation and therefore CT scan of the abdomen and pelvis should to be ordered to evaluate the abdominal areas. In the meantime, the patient should continue receiving hydration and antibiotics. With respect to her abdominal pain, she also need to undergo endoscopy to evaluate the upper gastrointestinal tract. Should her oral intake not improve, she may need eventual gastrostomy tube for long-term enteral support. RECOMMENDATIONS: 1. Follow liver panel. 2. CT scan of the abdomen and pelvis. 3. Endoscopy Monday. 4. Convert Eliquis to intravenous heparin for procedural purposes. 5. Continue proton pump inhibitor. Thank you for asking me to participate in the care of this patient. Grace Jasmine M.D. DR: Javier JOB#: [id number] CC: AISHA
[2017-03-25] MEDS: Piperacillin/Tazobactam 3.375 GM in NS 110 ML IVPB SCH ×3 (04:51→22:23)
[2017-03-25 05:38] LABS: BASOPHILS % (AUTO) 1.6 % (0.0-2.0); EOSINOPHILS % (AUTO) 1.8 % (0.0-3.0); HEMATOCRIT 34.2 % (37.0-47.0); HEMOGLOBIN 11.7 G/DL (12.0-16.0); LYMPHOCYTES % (AUTO) 15.1 % (20.0-45.0); MEAN CORPUSCULAR VOLUME 97 FL (80-99); MONOCYTES % (AUTO) 9.3 % (1.0-10.0); NEUTROPHILS % (AUTO) 72.3 % (45.0-75.0); PLATELET COUNT 392 K/UL (150-450); RED BLOOD COUNT 3.52 M/UL (4.20-5.40); WHITE BLOOD COUNT 9.2 K/UL (4.8-10.8)
[2017-03-25] MEDS: NovoLOG Insulin Flexpen SUBQ SCH ×4 (06:01→22:26)
[2017-03-25 06:14] LABS: ANION GAP 13 mmol/L (5-15); BLOOD UREA NITROGEN 17 mg/dL (7-18); CALCIUM 8.2 MG/DL (8.5-10.1); CARBON DIOXIDE 23 MMOL/L (21-32); CHLORIDE 111 MMOL/L (98-107); CREATININE 1.2 MG/DL (0.55-1.30); POTASSIUM 3.2 MMOL/L (3.5-5.1); SODIUM 147 MMOL/L (136-145)
[2017-03-25 08:00] VITALS: BP 145/71
[2017-03-25] MEDS ORDERED: Heparin 5000 units/ml inj IV ONE (09:00)
[2017-03-25] MEDS: Heparin 25,000u/D5W 500ml 500 ML IV SCH (09:24)
--- NOTE | 2017-03-25 09:24 | General Progress Note ---
Assessment/Plan Problem List: (1) Urinary tract infection ICD Codes: N39.0 - Urinary tract infection, site not specified SNOMED: 91045459 (2) Renal insufficiency ICD Codes: N28.9 - Disorder of kidney and ureter, unspecified SNOMED: 984487601, 618499635 (3) History of shingles ICD Codes: Z86.19 - Personal history of other infectious and parasitic diseases SNOMED: 487094602199704 (4) Sepsis ICD Codes: A41.9 - Sepsis, unspecified organism SNOMED: 25595921 Status: stable, progressing Assessment/Plan iv abx per id heparin drip possible endoscopy Ct abd per GI bowel regime ivf cartwright bp rx encourage pos dc planning Subjective ROS Limited/Unobtainable: Yes Constitutional: Reports: malaise, weakness HEENT: Reports: no symptoms Cardiovascular: Reports: no symptoms Respiratory: Reports: no symptoms Gastrointestinal/Abdominal: Reports: abdomen distended, abdominal pain Genitourinary: Reports: no symptoms Neurologic/Psychiatric: Reports: pre-existing deficit Endocrine: Reports: no symptoms Hematologic/Lymphatic: Reports: no symptoms Allergies: Coded Allergies: No Known Allergies (Unverified , 03/17/17) All Systems: reviewed and negative except above Subjective no events.renal fxn better, still with cartwright. on abx. now sinus. no distress. C/o abd pain and constipation- GI consulted. recs apprecaited now on heparin drip. may need endoscopy. await ct abd Objective Last 24 Hour Vital Signs Date Time Temp Pulse Resp B/P (MAP) Pulse Ox O2 Delivery O2 Flow Rate FiO2 03/25/17 04:00 97.6 68 18 130/58 97 Nasal Cannula 2.0 03/25/17 04:00 75 03/25/17 00:00 96.8 77 18 148/61 99 Nasal Cannula 2.0 03/25/17 00:00 70 03/24/17 22:34 75 118/61 03/24/17 20:00 91 03/24/17 20:00 97.6 68 18 148/65 97 Nasal Cannula 2.0 03/24/17 16:58 97.9 75 19 118/61 99 03/24/17 16:00 85 03/24/17 12:00 81 Intake and Output 03/24/17 03/25/17 19:00 07:00 Intake Total 710.0 ml 386.386 ml Balance 710.0 ml 386.386 ml Intake Oral 300 ml IV Total 410.0 ml 386.386 ml # Bowel Movements 2 3 Laboratory Tests 03/24/17 17:22: White Blood Count 9.3, Red Blood Count 3.29L, Hemoglobin 10.9L, Hematocrit 32.3L , Mean Corpuscular Volume 98, Mean Corpuscular Hemoglobin 33.2H, Mean Corpuscular Hemoglobin Concent 33.9, Red Cell Distribution Width 14.0, Platelet Count 379, Mean Platelet Volume 6.3L, Neutrophils (%) (Auto) 69.5, Lymphocytes ( %) (Auto) 16.6L, Monocytes (%) (Auto) 10.7H, Eosinophils (%) (Auto) 1.5, Basophils (%) (Auto) 1.7, Activated Partial Thromboplast Time 29 03/25/17 04:45: White Blood Count 9.2, Red Blood Count 3.52L, Hemoglobin 11.7L, Hematocrit 34.2L , Mean Corpuscular Volume 97, Mean Corpuscular Hemoglobin 33.1H, Mean Corpuscular Hemoglobin Concent 34.1, Red Cell Distribution Width 14.0, Platelet Count 392, Mean Platelet Volume 6.6, Neutrophils (%) (Auto) 72.3, Lymphocytes (% ) (Auto) 15.1L, Monocytes (%) (Auto) 9.3, Eosinophils (%) (Auto) 1.8, Basophils (%) (Auto) 1.6, Activated Partial Thromboplast Time 53H, Sodium Level 147H, Potassium Level 3.2L, Chloride Level 111H, Carbon Dioxide Level 23, Anion Gap 13 , Blood Urea Nitrogen 17, Creatinine 1.2, Estimat Glomerular Filtration Rate , Glucose Level 167H, Calcium Level 8.2L Height (Feet): 5 Height (Inches): 4.00 Weight (Pounds): 110 Objective General Appearance: WD/WN Neck: supple Cardiovascular: normal rate, regular rhythm Respiratory/Chest: chest wall non-tender, lungs clear, normal breath sounds, no respiratory distress Abdomen: normal bowel sounds, non tender, soft, no organomegaly Edema: no edema noted Arm (L), no edema noted Arm (R), no edema noted Leg (L), no edema noted Leg (R), no edema noted Pedal (L), no edema noted Pedal (R), no edema noted Generalized Neurologic: alert, responsive NOE TRAVIS Mar 25, 2017 09:24
[2017-03-25] MEDS: Lactulose 20gm/30ml UDC ORAL SCH ×2 (09:25→13:00)
[2017-03-25] MEDS: Docusate 100mg/10ml Liq ORAL SCH ×2 (09:25→17:41)
[2017-03-25] MEDS: Vitamin D 1000 IU Tab ORAL SCH (09:26)
[2017-03-25] MEDS: Megace 400mg/10ml Susp ORAL SCH ×2 (09:26→22:24)
[2017-03-25] MEDS: Magnesium Oxide 400mg tab ORAL SCH ×3 (09:26→17:42)
[2017-03-25] MEDS: Metoprolol 25mg tab ORAL SCH ×2 (09:29→22:24)
[2017-03-25] MEDS: Pantoprazole Inj IVP SCH (09:29)
--- NOTE | 2017-03-25 09:47 | Diagnostic Imaging Report ---
Indication: Abdominal pain Technique: Spiral acquisitions obtained through the abdomen and pelvis. No oral contrast utilized, per emergency room physician request No IV contrast utilized, per referring physician request. Multiplanar reconstructions were generated. Total dose length product 608 mGycm. CTDIvol(s) 11 mGy. Dose reduction achieved using automated exposure control Comparison: None Findings: Contrast from prior video swallowing study is seen in the colon. No evidence of diverticulosis or diverticulitis. The appendix is not definitely demonstrated, but no findings to suggest acute appendicitis are evident. Small bowel loops are prominent but not frankly dilated. The distal esophagus, stomach, duodenum are unremarkable. No free or loculated intraperitoneal air or fluid is evident. Lack of IV contrast limits assessment of the solid organs. The liver is unremarkable. The gallbladder is distended, but no gallstones or wall thickening are evident. No biliary ductal dilatation. The pancreas, spleen, adrenals are unremarkable. The kidneys demonstrate one or more subcentimeter low-attenuation lesions bilaterally, too small to characterize. Probable small hyperdense cyst comes off of the lower pole of the left kidney. There is mild fullness to the bilateral renal collecting system. This also reported on renal ultrasound 03/19/2017. There is equivocal mild urothelial thickening. No retroperitoneal or mesenteric mass or adenopathy. No pelvic mass or adenopathy. The uterus is not visualized, presumably surgically absent. The bladder is empty and contains a Polk catheter. Air within the bladder is presumably related to Polk catheterization. The abdominal aorta demonstrates some saccular ectasia but is not frankly aneurysmal. The lung bases demonstrate some scarring and atelectasis, particularly posteriorly and the bones demonstrate degenerative spondylosis changes. There is a compression fracture deformity of the T12 vertebral body. Impression: Mild renal collecting system fullness and urothelial thickening could indicate pyeloureteritis No definite acute process otherwise Bilateral subcentimeter low-attenuation renal lesions, too small to characterize, most likely benign simple cysts. Hyperdense lesion comes off the lower pole of the left kidney, probably a small hyperdense proteinaceous cyst. No further follow-up necessary Empty bladder with Polk catheter T12 compression fracture deformity, age indeterminate. Consider MRI for further evaluation if this is clinically relevant Incidental findings of pulmonary parenchymal scarring and atelectasis, degenerative spondylosis, likely prior hysterectomy This agrees with the preliminary interpretation provided overnight by [facility] teleradiology service. The CT scanner at [facility] is accredited by the [place] [employer] and the scans are performed using protocols designed to limit radiation exposure to as low as reasonably achievable to attain images of sufficient resolution adequate for diagnostic evaluation.
--- NOTE | 2017-03-25 10:04 | General Progress Note ---
Assessment/Plan Problem List: (1) Anemia ICD Codes: D64.9 - Anemia, unspecified SNOMED: 667772012 (2) Urinary tract infection ICD Codes: N39.0 - Urinary tract infection, site not specified SNOMED: 05017969 (3) Renal insufficiency ICD Codes: N28.9 - Disorder of kidney and ureter, unspecified SNOMED: 212107545, 486186160 (4) History of shingles ICD Codes: Z86.19 - Personal history of other infectious and parasitic diseases SNOMED: 234625539716301 (5) E coli bacteremia ICD Codes: R78.81 - Bacteremia SNOMED: 492033078984 Assessment/Plan had BM with laxatives anemia work up pending EGD on Monday Subjective ROS Limited/Unobtainable: No Allergies: Coded Allergies: No Known Allergies (Unverified , 03/17/17) Objective Last 24 Hour Vital Signs Date Time Temp Pulse Resp B/P (MAP) Pulse Ox O2 Delivery O2 Flow Rate FiO2 03/25/17 09:29 92 145/71 03/25/17 09:29 92 145/71 03/25/17 08:00 97.8 92 20 145/71 98 Nasal Cannula 2.0 03/25/17 04:00 97.6 68 18 130/58 97 Nasal Cannula 2.0 03/25/17 04:00 75 03/25/17 00:00 96.8 77 18 148/61 99 Nasal Cannula 2.0 03/25/17 00:00 70 03/24/17 22:34 75 118/61 03/24/17 20:00 91 03/24/17 20:00 97.6 68 18 148/65 97 Nasal Cannula 2.0 03/24/17 16:58 97.9 75 19 118/61 99 03/24/17 16:00 85 03/24/17 12:00 81 Intake and Output 03/24/17 03/25/17 19:00 07:00 Intake Total 710.0 ml 386.386 ml Balance 710.0 ml 386.386 ml Intake Oral 300 ml IV Total 410.0 ml 386.386 ml # Bowel Movements 2 3 Laboratory Tests 03/24/17 17:22: White Blood Count 9.3, Red Blood Count 3.29L, Hemoglobin 10.9L, Hematocrit 32.3L , Mean Corpuscular Volume 98, Mean Corpuscular Hemoglobin 33.2H, Mean Corpuscular Hemoglobin Concent 33.9, Red Cell Distribution Width 14.0, Platelet Count 379, Mean Platelet Volume 6.3L, Neutrophils (%) (Auto) 69.5, Lymphocytes ( %) (Auto) 16.6L, Monocytes (%) (Auto) 10.7H, Eosinophils (%) (Auto) 1.5, Basophils (%) (Auto) 1.7, Activated Partial Thromboplast Time 29 03/25/17 04:45: White Blood Count 9.2, Red Blood Count 3.52L, Hemoglobin 11.7L, Hematocrit 34.2L , Mean Corpuscular Volume 97, Mean Corpuscular Hemoglobin 33.1H, Mean Corpuscular Hemoglobin Concent 34.1, Red Cell Distribution Width 14.0, Platelet Count 392, Mean Platelet Volume 6.6, Neutrophils (%) (Auto) 72.3, Lymphocytes (% ) (Auto) 15.1L, Monocytes (%) (Auto) 9.3, Eosinophils (%) (Auto) 1.8, Basophils (%) (Auto) 1.6, Activated Partial Thromboplast Time 53H, Sodium Level 147H, Potassium Level 3.2L, Chloride Level 111H, Carbon Dioxide Level 23, Anion Gap 13 , Blood Urea Nitrogen 17, Creatinine 1.2, Estimat Glomerular Filtration Rate , Glucose Level 167H, Calcium Level 8.2L Height (Feet): 5 Height (Inches): 4.00 Weight (Pounds): 110 General Appearance: no apparent distress EENT: normal ENT inspection Neck: supple Cardiovascular: normal rate Respiratory/Chest: decreased breath sounds Abdomen: normal bowel sounds, non tender, soft Extremities: non-tender ANGIE MANCIA Mar 25, 2017 10:04
--- NOTE | 2017-03-25 10:21 | Urology Progress Note ---
Assessment/Plan Assessment/Plan urinary retention probable neurogenic bladder (atonic) CRI/FARRAH, improved UTI hematuria proteinuria hydronephrosis renal cyst sepsis keep cartwright for now abx as ordered flomax added monitor renal fxn voiding trial soon, once more ambulatory cysto later d/w pt's daughters Subjective Allergies: Coded Allergies: No Known Allergies (Unverified , 03/17/17) Subjective looks comfortable Objective Last 24 Hour Vital Signs Date Time Temp Pulse Resp B/P (MAP) Pulse Ox O2 Delivery O2 Flow Rate FiO2 03/25/17 09:29 92 145/71 03/25/17 09:29 92 145/71 03/25/17 08:00 97.8 92 20 145/71 98 Nasal Cannula 2.0 03/25/17 04:00 97.6 68 18 130/58 97 Nasal Cannula 2.0 03/25/17 04:00 75 03/25/17 00:00 96.8 77 18 148/61 99 Nasal Cannula 2.0 03/25/17 00:00 70 03/24/17 22:34 75 118/61 03/24/17 20:00 91 03/24/17 20:00 97.6 68 18 148/65 97 Nasal Cannula 2.0 03/24/17 16:58 97.9 75 19 118/61 99 03/24/17 16:00 85 03/24/17 12:00 81 Intake and Output 03/24/17 03/25/17 19:00 07:00 Intake Total 710.0 ml 386.386 ml Balance 710.0 ml 386.386 ml Intake Oral 300 ml IV Total 410.0 ml 386.386 ml # Bowel Movements 2 3 Microbiology Date/Time Source Procedure Growth Status 03/17/17 18:00 Blood Blood Culture - Final Escherichia Coli - Esbl Complete 03/17/17 18:00 Nasal Nares Influenza Types A,B Antigen (HANNAH) - Final Complete 03/23/17 16:30 Indwelling Cath Urine Culture - Final NO GROWTH AFTER 48 HOURS Complete 03/19/17 09:55 Arm Right Catheter Tip Culture - Final NO GROWTH AFTER 4 DAYS Complete Current Medications Medications (Trade) Dose Ordered Sig/Aditi Route PRN Reason Start Time Stop Time Status Last Admin Dose Admin Acetaminophen (Tylenol) 650 mg Q4H PRN ORAL Mild Pain/Temp > 100.5 03/17/17 22:30 04/16/17 22:29 03/18/17 08:09 Amlodipine Besylate (Norvasc) 5 mg DAILY ORAL 03/20/17 13:00 04/19/17 12:59 03/25/17 09:29 Dextrose (Dextrose 50%) STAT PRN IV Hypoglycemia 03/17/17 22:30 04/16/17 22:29 Diphenhydramine HCl (Benadryl) 25 mg Q8H PRN ORAL Itching 03/23/17 13:15 04/22/17 13:14 Docusate Sodium (Colace) 100 mg TWICE A DAY ORAL 03/22/17 18:00 04/21/17 17:59 03/25/17 09:25 Heparin Sodium/ Dextrose 500 ml @ 19.958 mls/ hr adjust per protocol IV 03/24/17 18:00 03/26/17 23:59 03/25/17 09:24 Hydralazine HCl (Apresoline) 10 mg Q4H PRN IV For High Blood Pressure 03/20/17 12:45 04/19/17 12:44 Insulin Aspart (NovoLOG) BEFORE MEALS AND HS SUBQ 03/18/17 06:30 04/17/17 06:29 03/25/17 06:01 Lactulose (Cephulac) 30 gm THREE TIMES A DAY ORAL 03/24/17 09:00 04/23/17 08:59 03/25/17 09:25 Magnesium Oxide (Mag-Ox 400mg) 400 mg THREE TIMES A DAY ORAL 03/24/17 18:00 04/23/17 17:59 03/25/17 09:26 Megestrol Acetate (Megace) 200 mg Q12HR ORAL 03/22/17 21:00 04/21/17 20:59 03/25/17 09:26 Metoprolol Tartrate (Lopressor) 25 mg Q12HR ORAL 03/22/17 09:00 04/21/17 08:59 03/25/17 09:29 Ondansetron HCl (Zofran) 4 mg Q4H PRN IVP Nausea & Vomiting 03/22/17 10:30 04/21/17 10:29 03/23/17 20:18 Pantoprazole (Protonix) 40 mg DAILY IVP 03/23/17 09:00 04/22/17 08:59 03/25/17 09:29 Piperacillin Sod/ Tazobactam Sod 3.375 gm/Sodium Chloride 110 ml @ 27.5 mls/hr Q8HR@0400,1200,2000 IVPB 03/22/17 20:00 03/29/17 19:59 03/25/17 04:51 Sennosides (Senokot) 1 tab DAILY PRN ORAL Constipation 03/17/17 22:30 04/16/17 22:29 Sodium 1,000 ml @ 30 mls/hr Q24H IV 03/23/17 17:00 04/22/17 16:59 03/24/17 17:42 Tamsulosin HCl (Flomax) 0.4 mg BEDTIME ORAL 03/21/17 21:00 04/20/17 20:59 03/24/17 22:34 Vitamin D (Vitamin D) 2,000 intlu DAILY ORAL 03/18/17 09:00 04/17/17 08:59 03/25/17 09:26 Laboratory Tests 03/24/17 17:22: White Blood Count 9.3, Red Blood Count 3.29L, Hemoglobin 10.9L, Hematocrit 32.3L , Mean Corpuscular Volume 98, Mean Corpuscular Hemoglobin 33.2H, Mean Corpuscular Hemoglobin Concent 33.9, Red Cell Distribution Width 14.0, Platelet Count 379, Mean Platelet Volume 6.3L, Neutrophils (%) (Auto) 69.5, Lymphocytes ( %) (Auto) 16.6L, Monocytes (%) (Auto) 10.7H, Eosinophils (%) (Auto) 1.5, Basophils (%) (Auto) 1.7, Activated Partial Thromboplast Time 29 03/25/17 04:45: White Blood Count 9.2, Red Blood Count 3.52L, Hemoglobin 11.7L, Hematocrit 34.2L , Mean Corpuscular Volume 97, Mean Corpuscular Hemoglobin 33.1H, Mean Corpuscular Hemoglobin Concent 34.1, Red Cell Distribution Width 14.0, Platelet Count 392, Mean Platelet Volume 6.6, Neutrophils (%) (Auto) 72.3, Lymphocytes (% ) (Auto) 15.1L, Monocytes (%) (Auto) 9.3, Eosinophils (%) (Auto) 1.8, Basophils (%) (Auto) 1.6, Activated Partial Thromboplast Time 53H, Sodium Level 147H, Potassium Level 3.2L, Chloride Level 111H, Carbon Dioxide Level 23, Anion Gap 13 , Blood Urea Nitrogen 17, Creatinine 1.2, Estimat Glomerular Filtration Rate , Glucose Level 167H, Calcium Level 8.2L Height (Feet): 5 Height (Inches): 4.00 Weight (Pounds): 110 Objective exam stable, urine yellow with some debris ELIUD CRABTREE Mar 25, 2017 10:21
[2017-03-25 12:00] VITALS: BP 135/70
--- NOTE | 2017-03-25 12:54 | Nephrology Progress Note ---
Assessment/Plan Problem List: (1) Hypokalemia (2) E coli bacteremia (3) Hydronephrosis (4) FARRAH (acute kidney injury) (5) CKD (chronic kidney disease) stage 3, GFR 30-59 ml/min (6) Sepsis (7) Urinary tract infection (8) Hypomagnesemia Plan cont. iv fluids, reduce rate kcl, antibiotics, keep cartwright for now, lab improving , nausea and anorexia, stop gabapentin possible adverse effect, ate better today , replace Mg Subjective ROS Limited/Unobtainable: Yes Objective Objective Last 24 Hour Vital Signs Date Time Temp Pulse Resp B/P (MAP) Pulse Ox O2 Delivery O2 Flow Rate FiO2 03/25/17 09:29 92 145/71 03/25/17 09:29 92 145/71 03/25/17 08:00 116 03/25/17 08:00 97.8 92 20 145/71 98 Nasal Cannula 2.0 03/25/17 04:00 97.6 68 18 130/58 97 Nasal Cannula 2.0 03/25/17 04:00 75 03/25/17 00:00 96.8 77 18 148/61 99 Nasal Cannula 2.0 03/25/17 00:00 70 03/24/17 22:34 75 118/61 03/24/17 20:00 91 03/24/17 20:00 97.6 68 18 148/65 97 Nasal Cannula 2.0 03/24/17 16:58 97.9 75 19 118/61 99 03/24/17 16:00 85 Intake and Output 03/24/17 03/25/17 19:00 07:00 Intake Total 710.0 ml 386.386 ml Balance 710.0 ml 386.386 ml Intake Oral 300 ml IV Total 410.0 ml 386.386 ml # Bowel Movements 2 3 Laboratory Tests 03/24/17 17:22: White Blood Count 9.3, Red Blood Count 3.29L, Hemoglobin 10.9L, Hematocrit 32.3L , Mean Corpuscular Volume 98, Mean Corpuscular Hemoglobin 33.2H, Mean Corpuscular Hemoglobin Concent 33.9, Red Cell Distribution Width 14.0, Platelet Count 379, Mean Platelet Volume 6.3L, Neutrophils (%) (Auto) 69.5, Lymphocytes ( %) (Auto) 16.6L, Monocytes (%) (Auto) 10.7H, Eosinophils (%) (Auto) 1.5, Basophils (%) (Auto) 1.7, Activated Partial Thromboplast Time 29 03/25/17 04:45: White Blood Count 9.2, Red Blood Count 3.52L, Hemoglobin 11.7L, Hematocrit 34.2L , Mean Corpuscular Volume 97, Mean Corpuscular Hemoglobin 33.1H, Mean Corpuscular Hemoglobin Concent 34.1, Red Cell Distribution Width 14.0, Platelet Count 392, Mean Platelet Volume 6.6, Neutrophils (%) (Auto) 72.3, Lymphocytes (% ) (Auto) 15.1L, Monocytes (%) (Auto) 9.3, Eosinophils (%) (Auto) 1.8, Basophils (%) (Auto) 1.6, Activated Partial Thromboplast Time 53H, Sodium Level 147H, Potassium Level 3.2L, Chloride Level 111H, Carbon Dioxide Level 23, Anion Gap 13 , Blood Urea Nitrogen 17, Creatinine 1.2, Estimat Glomerular Filtration Rate , Glucose Level 167H, Calcium Level 8.2L Height (Feet): 5 Height (Inches): 4.00 Weight (Pounds): 110 General Appearance: alert, thin EENT: normal ENT inspection Neck: normal alignment Cardiovascular: normal rate, regular rhythm, regularly irregular Respiratory/Chest: lungs clear Abdomen: non tender, soft, no organomegaly Extremities: other - no edema 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
[2017-03-25] MEDS: 1/2NS w/KCl 20mEq 1000ml 1,000 ML IV SCH (15:30)
[2017-03-25 16:00] VITALS: BP 148/65
[2017-03-25] MEDS ORDERED: Heparin 25,000u/D5W 500ml 500 ML IV SCH (16:45)
[2017-03-25] MEDS: Lactobacillus-GG tablet ORAL SCH (17:41)
[2017-03-25 20:00] VITALS: BP 142/64
[2017-03-25] MEDS: Tamsulosin 0.4mg cap ORAL SCH (22:24)
[2017-03-26] VITALS: BP 136/60
[2017-03-26 04:00] VITALS: BP 145/60
[2017-03-26] MEDS: Piperacillin/Tazobactam 3.375 GM in NS 110 ML IVPB SCH ×3 (04:50→21:12)
[2017-03-26] MEDS: 1/2NS w/KCl 20mEq 1000ml 1,000 ML IV SCH ×2 (05:30→15:20)
[2017-03-26] MEDS: NovoLOG Insulin Flexpen SUBQ SCH ×4 (06:58→20:59)
[2017-03-26 07:09] LABS: BASOPHILS % (AUTO) 1.7 % (0.0-2.0); EOSINOPHILS % (AUTO) 1.4 % (0.0-3.0); HEMATOCRIT 32.8 % (37.0-47.0); LYMPHOCYTES % (AUTO) 13.4 % (20.0-45.0); MEAN CORPUSCULAR VOLUME 99 FL (80-99); MONOCYTES % (AUTO) 9.5 % (1.0-10.0); PLATELET COUNT 382 K/UL (150-450); RED BLOOD COUNT 3.32 M/UL (4.20-5.40); RED CELL DISTRIBUTION WIDTH 14.8 % (11.6-14.8); WHITE BLOOD COUNT 9.5 K/UL (4.8-10.8)
[2017-03-26 07:37] LABS: ALANINE AMINOTRANSFERASE 47 U/L (12-78); ALBUMIN 2.8 G/DL (3.4-5.0); ALBUMIN/GLOBULIN RATIO 0.6 (1.0-2.7); ALKALINE PHOSPHATASE 156 U/L (46-116); ANION GAP 15 mmol/L (5-15); ASPARTATE AMINO TRANSFERASE 26 U/L (15-37); BILIRUBIN,TOTAL 0.4 MG/DL (0.2-1.0); BLOOD UREA NITROGEN 14 mg/dL (7-18); CALCIUM 7.8 MG/DL (8.5-10.1); CARBON DIOXIDE 20 MMOL/L (21-32); CHLORIDE 112 MMOL/L (98-107); CREATININE 1.2 MG/DL (0.55-1.30); POTASSIUM 3.9 MMOL/L (3.5-5.1); SODIUM 146 MMOL/L (136-145)
[2017-03-26 08:00] VITALS: BP 158/74
[2017-03-26 08:29] LABS: % IRON SATURATION 21 % (15-50); IRON 82 ug/dL (50-175); TOTAL IRON BINDING CAPACITY 387 ug/dL (250-450)
--- NOTE | 2017-03-26 08:42 | General Progress Note ---
Assessment/Plan Problem List: (1) Anemia ICD Codes: D64.9 - Anemia, unspecified SNOMED: 794060006 (2) Urinary tract infection ICD Codes: N39.0 - Urinary tract infection, site not specified SNOMED: 46663798 (3) Renal insufficiency ICD Codes: N28.9 - Disorder of kidney and ureter, unspecified SNOMED: 228712434, 081810711 (4) History of shingles ICD Codes: Z86.19 - Personal history of other infectious and parasitic diseases SNOMED: 705333199900113 (5) E coli bacteremia ICD Codes: R78.81 - Bacteremia SNOMED: 495329052594 Assessment/Plan off heparin drip stable H&H will cancel EGD for now CBC in am Subjective ROS Limited/Unobtainable: Yes Allergies: Coded Allergies: No Known Allergies (Unverified , 03/17/17) Subjective had hemoptysis last night off heparin drip not feeling well Objective Last 24 Hour Vital Signs Date Time Temp Pulse Resp B/P (MAP) Pulse Ox O2 Delivery O2 Flow Rate FiO2 03/26/17 04:00 86 03/26/17 04:00 97.5 84 18 145/60 96 Nasal Cannula 2.0 03/26/17 00:00 97.5 81 18 136/60 97 Nasal Cannula 2.0 03/26/17 00:00 83 03/25/17 22:24 90 142/64 03/25/17 20:00 96.6 90 20 142/64 94 Nasal Cannula 2.0 03/25/17 20:00 87 03/25/17 19:00 99 Room Air 21 03/25/17 19:00 Room Air 21 03/25/17 16:00 85 03/25/17 16:00 97.1 109 20 148/65 96 Nasal Cannula 2.0 03/25/17 12:00 97.1 85 19 135/70 97 Nasal Cannula 2.0 03/25/17 12:00 82 03/25/17 09:29 92 145/71 03/25/17 09:29 92 145/71 Intake and Output 03/25/17 03/26/17 19:00 07:00 Intake Total 727.958 ml Output Total 1300 ml 300 ml Balance -572.042 ml -300 ml Intake Oral 708 ml IV Total 19.958 ml Output Urine Total 1300 ml 300 ml # Bowel Movements 1 Laboratory Tests 03/25/17 14:40: Stool Occult Blood [Pending] 03/25/17 15:20: Activated Partial Thromboplast Time 119H 03/26/17 00:30: Activated Partial Thromboplast Time 29 03/26/17 05:35: White Blood Count 9.5, Red Blood Count 3.32L, Hemoglobin 11.0L, Hematocrit 32.8L , Mean Corpuscular Volume 99, Mean Corpuscular Hemoglobin 33.1H, Mean Corpuscular Hemoglobin Concent 33.6, Red Cell Distribution Width 14.8, Platelet Count 382, Mean Platelet Volume 6.5, Neutrophils (%) (Auto) 74.0, Lymphocytes (% ) (Auto) 13.4L, Monocytes (%) (Auto) 9.5, Eosinophils (%) (Auto) 1.4, Basophils (%) (Auto) 1.7, Sodium Level 146H, Potassium Level 3.9, Chloride Level 112H, Carbon Dioxide Level 20L, Anion Gap 15, Blood Urea Nitrogen 14, Creatinine 1.2, Estimat Glomerular Filtration Rate , Glucose Level 134H, Calcium Level 7.8L, Iron Level 82, Total Iron Binding Capacity 387, Percent Iron Saturation 21, Unsaturated Iron Binding 305, Total Bilirubin 0.4, Aspartate Amino Transf (AST/ SGOT) 26, Alanine Aminotransferase (ALT/SGPT) 47, Alkaline Phosphatase 156H, Total Protein 7.5, Albumin 2.8L, Globulin 4.7, Albumin/Globulin Ratio 0.6L, Vitamin B12 Level 1747H, Folate 14.1 Height (Feet): 5 Height (Inches): 4.00 Weight (Pounds): 110 General Appearance: alert EENT: normal ENT inspection Neck: supple Cardiovascular: normal rate Respiratory/Chest: decreased breath sounds Abdomen: normal bowel sounds, non tender, soft Extremities: non-tender ANGIE MANCIA Mar 26, 2017 08:42
[2017-03-26] MEDS: Docusate 100mg/10ml Liq ORAL SCH ×3 (09:00→17:24)
[2017-03-26] MEDS: Megace 400mg/10ml Susp ORAL SCH ×2 (09:10→21:00)
[2017-03-26] MEDS: Metoprolol 25mg tab ORAL SCH ×2 (09:10→21:04)
[2017-03-26] MEDS: Magnesium Oxide 400mg tab ORAL SCH ×3 (09:10→17:23)
[2017-03-26] MEDS: Lactobacillus-GG tablet ORAL SCH ×3 (09:11→17:23)
--- NOTE | 2017-03-26 09:25 | Urology Progress Note ---
Assessment/Plan Assessment/Plan urinary retention probable neurogenic bladder (atonic) CRI/FARRAH, improved UTI hematuria proteinuria hydronephrosis renal cyst sepsis pyelo? keep cartwright for now abx as ordered flomax added monitor renal fxn voiding trial soon, once more ambulatory cysto later Subjective Allergies: Coded Allergies: No Known Allergies (Unverified , 03/17/17) Subjective looks comfortable Objective Last 24 Hour Vital Signs Date Time Temp Pulse Resp B/P (MAP) Pulse Ox O2 Delivery O2 Flow Rate FiO2 03/26/17 09:11 87 158/74 03/26/17 09:10 89 158/74 03/26/17 04:00 86 03/26/17 04:00 97.5 84 18 145/60 96 Nasal Cannula 2.0 03/26/17 00:00 97.5 81 18 136/60 97 Nasal Cannula 2.0 03/26/17 00:00 83 03/25/17 22:24 90 142/64 03/25/17 20:00 96.6 90 20 142/64 94 Nasal Cannula 2.0 03/25/17 20:00 87 03/25/17 19:00 99 Room Air 21 03/25/17 19:00 Room Air 21 03/25/17 16:00 85 03/25/17 16:00 97.1 109 20 148/65 96 Nasal Cannula 2.0 03/25/17 12:00 97.1 85 19 135/70 97 Nasal Cannula 2.0 03/25/17 12:00 82 03/25/17 09:29 92 145/71 03/25/17 09:29 92 145/71 Intake and Output 03/25/17 03/26/17 19:00 07:00 Intake Total 727.958 ml Output Total 1300 ml 300 ml Balance -572.042 ml -300 ml Intake Oral 708 ml IV Total 19.958 ml Output Urine Total 1300 ml 300 ml # Bowel Movements 1 Microbiology Date/Time Source Procedure Growth Status 03/17/17 18:00 Blood Blood Culture - Final Escherichia Coli - Esbl Complete 03/17/17 18:00 Nasal Nares Influenza Types A,B Antigen (HANNAH) - Final Complete 03/23/17 16:30 Indwelling Cath Urine Culture - Final NO GROWTH AFTER 48 HOURS Complete 03/19/17 09:55 Arm Right Catheter Tip Culture - Final NO GROWTH AFTER 4 DAYS Complete Current Medications Medications (Trade) Dose Ordered Sig/Aditi Route PRN Reason Start Time Stop Time Status Last Admin Dose Admin Acetaminophen (Tylenol) 650 mg Q4H PRN ORAL Mild Pain/Temp > 100.5 03/17/17 22:30 04/16/17 22:29 03/18/17 08:09 Amlodipine Besylate (Norvasc) 5 mg DAILY ORAL 03/20/17 13:00 04/19/17 12:59 03/26/17 09:11 Dextrose (Dextrose 50%) STAT PRN IV Hypoglycemia 03/17/17 22:30 04/16/17 22:29 Diphenhydramine HCl (Benadryl) 25 mg Q8H PRN ORAL Itching 03/23/17 13:15 04/22/17 13:14 Docusate Sodium (Colace) 100 mg TWICE A DAY ORAL 03/22/17 18:00 04/21/17 17:59 03/26/17 09:10 Famotidine (Pepcid) 20 mg QPM ORAL 03/25/17 16:30 04/24/17 16:29 03/25/17 17:38 Hydralazine HCl (Apresoline) 10 mg Q4H PRN IV For High Blood Pressure 03/20/17 12:45 04/19/17 12:44 Insulin Aspart (NovoLOG) BEFORE MEALS AND HS SUBQ 03/18/17 06:30 04/17/17 06:29 03/26/17 06:58 Lactobacillus Acidophilus (Culturelle) 1 tab THREE TIMES A DAY ORAL 03/25/17 18:00 04/24/17 17:59 03/26/17 09:11 Magnesium Oxide (Mag-Ox 400mg) 400 mg THREE TIMES A DAY ORAL 03/24/17 18:00 04/23/17 17:59 03/26/17 09:10 Megestrol Acetate (Megace) 200 mg Q12HR ORAL 03/22/17 21:00 04/21/17 20:59 03/26/17 09:10 Metoprolol Tartrate (Lopressor) 25 mg Q12HR ORAL 03/22/17 09:00 04/21/17 08:59 03/26/17 09:10 Ondansetron HCl (Zofran) 4 mg Q4H PRN IVP Nausea & Vomiting 03/22/17 10:30 04/21/17 10:29 03/25/17 12:56 Piperacillin Sod/ Tazobactam Sod 3.375 gm/Sodium Chloride 110 ml @ 27.5 mls/hr Q8HR@0400,1200,2000 IVPB 03/22/17 20:00 03/29/17 19:59 03/26/17 04:50 Sennosides (Senokot) 1 tab DAILY PRN ORAL Constipation 03/17/17 22:30 04/16/17 22:29 Sodium 1,000 ml @ 75 mls/hr [id number] IV 03/25/17 15:30 04/24/17 15:29 03/26/17 05:30 Tamsulosin HCl (Flomax) 0.4 mg BEDTIME ORAL 03/21/17 21:00 04/20/17 20:59 03/25/17 22:24 Laboratory Tests 03/25/17 14:40: Stool Occult Blood [Pending] 03/25/17 15:20: Activated Partial Thromboplast Time 119H 03/26/17 00:30: Activated Partial Thromboplast Time 29 03/26/17 05:35: White Blood Count 9.5, Red Blood Count 3.32L, Hemoglobin 11.0L, Hematocrit 32.8L , Mean Corpuscular Volume 99, Mean Corpuscular Hemoglobin 33.1H, Mean Corpuscular Hemoglobin Concent 33.6, Red Cell Distribution Width 14.8, Platelet Count 382, Mean Platelet Volume 6.5, Neutrophils (%) (Auto) 74.0, Lymphocytes (% ) (Auto) 13.4L, Monocytes (%) (Auto) 9.5, Eosinophils (%) (Auto) 1.4, Basophils (%) (Auto) 1.7, Sodium Level 146H, Potassium Level 3.9, Chloride Level 112H, Carbon Dioxide Level 20L, Anion Gap 15, Blood Urea Nitrogen 14, Creatinine 1.2, Estimat Glomerular Filtration Rate , Glucose Level 134H, Calcium Level 7.8L, Iron Level 82, Total Iron Binding Capacity 387, Percent Iron Saturation 21, Unsaturated Iron Binding 305, Total Bilirubin 0.4, Aspartate Amino Transf (AST/ SGOT) 26, Alanine Aminotransferase (ALT/SGPT) 47, Alkaline Phosphatase 156H, Total Protein 7.5, Albumin 2.8L, Globulin 4.7, Albumin/Globulin Ratio 0.6L, Vitamin B12 Level 1747H, Folate 14.1 Height (Feet): 5 Height (Inches): 4.00 Weight (Pounds): 110 Objective exam stable, urine yellow with some debris CT (2/3) noted ELIUD CRABTREE Mar 26, 2017 09:25
--- NOTE | 2017-03-26 09:47 | Infectious Diseases Prog Note ---
Assessment/Plan Assessment/Plan A; E. coli ESBL sepsis E. 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 Acute renal failure resolving Urinary retention Anemia P; Continue Zosyn X 1 day Subjective ROS Limited/Unobtainable: Yes Constitutional: Reports: anorexia Gastrointestinal/Abdominal: Reports: no symptoms Genitourinary: Reports: no symptoms Allergies: Coded Allergies: No Known Allergies (Unverified , 03/17/17) Objective Vital Signs Last 24 Hour Vital Signs Date Time Temp Pulse Resp B/P (MAP) Pulse Ox O2 Delivery O2 Flow Rate FiO2 03/26/17 09:11 87 158/74 03/26/17 09:10 89 158/74 03/26/17 04:00 86 03/26/17 04:00 97.5 84 18 145/60 96 Nasal Cannula 2.0 03/26/17 00:00 97.5 81 18 136/60 97 Nasal Cannula 2.0 03/26/17 00:00 83 03/25/17 22:24 90 142/64 03/25/17 20:00 96.6 90 20 142/64 94 Nasal Cannula 2.0 03/25/17 20:00 87 03/25/17 19:00 99 Room Air 21 03/25/17 19:00 Room Air 21 03/25/17 16:00 85 03/25/17 16:00 97.1 109 20 148/65 96 Nasal Cannula 2.0 03/25/17 12:00 97.1 85 19 135/70 97 Nasal Cannula 2.0 03/25/17 12:00 82 Height (Feet): 5 Height (Inches): 4.00 Weight (Pounds): 110 General Appearance: no acute distress HEENT: mucous membranes moist Respiratory/Chest: lungs clear Cardiovascular: normal rate Abdomen: soft, non tender Genitourinary: other - Polk catheter Neurologic/Psychiatric: alert, responsive Microbiology Date/Time Source Procedure Growth Status 03/23/17 16:30 Indwelling Cath Urine Culture - Final NO GROWTH AFTER 48 HOURS Complete Laboratory Tests Test 03/25/17 14:40 03/25/17 15:20 03/26/17 00:30 03/26/17 05:35 Stool Occult Blood Pending Activated Partial Thromboplast Time 119 SEC (23-33) H 29 SEC (23-33) White Blood Count 9.5 K/UL (4.8-10.8) Red Blood Count 3.32 M/UL (4.20-5.40) L Hemoglobin 11.0 G/DL (12.0-16.0) L Hematocrit 32.8 % (37.0-47.0) L Mean Corpuscular Volume 99 FL (80-99) Mean Corpuscular Hemoglobin 33.1 PG (27.0-31.0) H Mean Corpuscular Hemoglobin Concent 33.6 G/DL (32.0-36.0) Red Cell Distribution Width 14.8 % (11.6-14.8) Platelet Count 382 K/UL (150-450) Mean Platelet Volume 6.5 FL (6.5-10.1) Neutrophils (%) (Auto) 74.0 % (45.0-75.0) Lymphocytes (%) (Auto) 13.4 % (20.0-45.0) L Monocytes (%) (Auto) 9.5 % (1.0-10.0) Eosinophils (%) (Auto) 1.4 % (0.0-3.0) Basophils (%) (Auto) 1.7 % (0.0-2.0) Sodium Level 146 MMOL/L (136-145) H Potassium Level 3.9 MMOL/L (3.5-5.1) Chloride Level 112 MMOL/L (98-107) H Carbon Dioxide Level 20 MMOL/L (21-32) L Anion Gap 15 mmol/L (5-15) Blood Urea Nitrogen 14 mg/dL (7-18) Creatinine 1.2 MG/DL (0.55-1.30) Estimat Glomerular Filtration Rate mL/min (>60) Glucose Level 134 MG/DL (74-106) H Calcium Level 7.8 MG/DL (8.5-10.1) L Iron Level 82 ug/dL (50-175) Total Iron Binding Capacity 387 ug/dL (250-450) Percent Iron Saturation 21 % (15-50) Unsaturated Iron Binding 305 ug/dL (112-346) Total Bilirubin 0.4 MG/DL (0.2-1.0) Aspartate Amino Transf (AST/SGOT) 26 U/L (15-37) Alanine Aminotransferase (ALT/SGPT) 47 U/L (12-78) Alkaline Phosphatase 156 U/L (46-116) H Total Protein 7.5 G/DL (6.4-8.2) Albumin 2.8 G/DL (3.4-5.0) L Globulin 4.7 g/dL Albumin/Globulin Ratio 0.6 (1.0-2.7) L Vitamin B12 Level 1747 PG/ML (193-986) H Folate 14.1 NG/ML (8.6-58.9) Current Medications Medications (Trade) Dose Ordered Sig/Aditi Route PRN Reason Start Time Stop Time Status Last Admin Dose Admin Acetaminophen (Tylenol) 650 mg Q4H PRN ORAL Mild Pain/Temp > 100.5 03/17/17 22:30 04/16/17 22:29 03/18/17 08:09 Amlodipine Besylate (Norvasc) 5 mg DAILY ORAL 03/20/17 13:00 04/19/17 12:59 03/26/17 09:11 Dextrose (Dextrose 50%) STAT PRN IV Hypoglycemia 03/17/17 22:30 04/16/17 22:29 Diphenhydramine HCl (Benadryl) 25 mg Q8H PRN ORAL Itching 03/23/17 13:15 04/22/17 13:14 Docusate Sodium (Colace) 100 mg TWICE A DAY ORAL 03/22/17 18:00 04/21/17 17:59 03/26/17 09:10 Famotidine (Pepcid) 20 mg QPM ORAL 03/25/17 16:30 04/24/17 16:29 03/25/17 17:38 Hydralazine HCl (Apresoline) 10 mg Q4H PRN IV For High Blood Pressure 03/20/17 12:45 04/19/17 12:44 Insulin Aspart (NovoLOG) BEFORE MEALS AND HS SUBQ 03/18/17 06:30 04/17/17 06:29 03/26/17 06:58 Lactobacillus Acidophilus (Culturelle) 1 tab THREE TIMES A DAY ORAL 03/25/17 18:00 04/24/17 17:59 03/26/17 09:11 Magnesium Oxide (Mag-Ox 400mg) 400 mg THREE TIMES A DAY ORAL 03/24/17 18:00 04/23/17 17:59 03/26/17 09:10 Megestrol Acetate (Megace) 200 mg Q12HR ORAL 03/22/17 21:00 04/21/17 20:59 03/26/17 09:10 Metoprolol Tartrate (Lopressor) 25 mg Q12HR ORAL 03/22/17 09:00 04/21/17 08:59 03/26/17 09:10 Ondansetron HCl (Zofran) 4 mg Q4H PRN IVP Nausea & Vomiting 03/22/17 10:30 04/21/17 10:29 03/25/17 12:56 Piperacillin Sod/ Tazobactam Sod 3.375 gm/Sodium Chloride 110 ml @ 27.5 mls/hr Q8HR@0400,1200,2000 IVPB 03/22/17 20:00 03/29/17 19:59 03/26/17 04:50 Sennosides (Senokot) 1 tab DAILY PRN ORAL Constipation 03/17/17 22:30 04/16/17 22:29 Sodium 1,000 ml @ 75 mls/hr [id number] IV 03/25/17 15:30 04/24/17 15:29 03/26/17 05:30 Tamsulosin HCl (Flomax) 0.4 mg BEDTIME ORAL 03/21/17 21:00 04/20/17 20:59 03/25/17 22:24 HANG CASTELLANOS Mar 26, 2017 09:47
--- NOTE | 2017-03-26 09:48 | General Progress Note ---
Assessment/Plan Problem List: (1) Urinary tract infection ICD Codes: N39.0 - Urinary tract infection, site not specified SNOMED: 08141343 (2) Renal insufficiency ICD Codes: N28.9 - Disorder of kidney and ureter, unspecified SNOMED: 686839416, 179832250 (3) History of shingles ICD Codes: Z86.19 - Personal history of other infectious and parasitic diseases SNOMED: 977543715420972 (4) Sepsis ICD Codes: A41.9 - Sepsis, unspecified organism SNOMED: 83927999 Status: stable, progressing Assessment/Plan iv abx per id heparin drip off ct chest pulm eval bowel regime ivf cartwright bp rx encourage pos dc planning Subjective ROS Limited/Unobtainable: No Constitutional: Reports: malaise, weakness Cardiovascular: Reports: no symptoms Respiratory: Reports: sputum Gastrointestinal/Abdominal: Reports: no symptoms Genitourinary: Reports: no symptoms Neurologic/Psychiatric: Reports: no symptoms Endocrine: Reports: no symptoms Hematologic/Lymphatic: Reports: no symptoms Allergies: Coded Allergies: No Known Allergies (Unverified , 03/17/17) All Systems: reviewed and negative except above Subjective hemoptysis last night. heparin drip dcd. better this am Objective Last 24 Hour Vital Signs Date Time Temp Pulse Resp B/P (MAP) Pulse Ox O2 Delivery O2 Flow Rate FiO2 03/26/17 09:11 87 158/74 03/26/17 09:10 89 158/74 03/26/17 04:00 86 03/26/17 04:00 97.5 84 18 145/60 96 Nasal Cannula 2.0 03/26/17 00:00 97.5 81 18 136/60 97 Nasal Cannula 2.0 03/26/17 00:00 83 03/25/17 22:24 90 142/64 03/25/17 20:00 96.6 90 20 142/64 94 Nasal Cannula 2.0 03/25/17 20:00 87 03/25/17 19:00 99 Room Air 21 03/25/17 19:00 Room Air 21 03/25/17 16:00 85 03/25/17 16:00 97.1 109 20 148/65 96 Nasal Cannula 2.0 03/25/17 12:00 97.1 85 19 135/70 97 Nasal Cannula 2.0 03/25/17 12:00 82 Intake and Output 03/25/17 03/26/17 19:00 07:00 Intake Total 727.958 ml Output Total 1300 ml 300 ml Balance -572.042 ml -300 ml Intake Oral 708 ml IV Total 19.958 ml Output Urine Total 1300 ml 300 ml # Bowel Movements 1 Laboratory Tests 03/25/17 14:40: Stool Occult Blood [Pending] 03/25/17 15:20: Activated Partial Thromboplast Time 119H 03/26/17 00:30: Activated Partial Thromboplast Time 29 03/26/17 05:35: White Blood Count 9.5, Red Blood Count 3.32L, Hemoglobin 11.0L, Hematocrit 32.8L , Mean Corpuscular Volume 99, Mean Corpuscular Hemoglobin 33.1H, Mean Corpuscular Hemoglobin Concent 33.6, Red Cell Distribution Width 14.8, Platelet Count 382, Mean Platelet Volume 6.5, Neutrophils (%) (Auto) 74.0, Lymphocytes (% ) (Auto) 13.4L, Monocytes (%) (Auto) 9.5, Eosinophils (%) (Auto) 1.4, Basophils (%) (Auto) 1.7, Sodium Level 146H, Potassium Level 3.9, Chloride Level 112H, Carbon Dioxide Level 20L, Anion Gap 15, Blood Urea Nitrogen 14, Creatinine 1.2, Estimat Glomerular Filtration Rate , Glucose Level 134H, Calcium Level 7.8L, Iron Level 82, Total Iron Binding Capacity 387, Percent Iron Saturation 21, Unsaturated Iron Binding 305, Total Bilirubin 0.4, Aspartate Amino Transf (AST/ SGOT) 26, Alanine Aminotransferase (ALT/SGPT) 47, Alkaline Phosphatase 156H, Total Protein 7.5, Albumin 2.8L, Globulin 4.7, Albumin/Globulin Ratio 0.6L, Vitamin B12 Level 1747H, Folate 14.1 Height (Feet): 5 Height (Inches): 4.00 Weight (Pounds): 110 Objective General Appearance: WD/WN Neck: supple Cardiovascular: normal rate, regular rhythm Respiratory/Chest: chest wall non-tender, lungs clear, normal breath sounds, no respiratory distress Abdomen: normal bowel sounds, non tender, soft, no organomegaly Edema: no edema noted Arm (L), no edema noted Arm (R), no edema noted Leg (L), no edema noted Leg (R), no edema noted Pedal (L), no edema noted Pedal (R), no edema noted Generalized Neurologic: alert, responsive NOE TRAVIS Mar 26, 2017 09:48
--- NOTE | 2017-03-26 10:44 | Diagnostic Imaging Report ---
Indication: Chest pain Technique: One view of the chest Comparison: none Findings: 1 cm nodular opacity projects in the left midlung periphery. Not evident previously but could've been obscured by the property assessment monitor lead. Some atelectasis is seen in right midlung periphery. The lungs and pleural spaces are otherwise clear. Heart size is normal. The aorta is tortuous ectatic and calcified Impression: Left midlung nodular opacity versus nipple shadow, possibly obscured by property assessment monitor lead on prior study. Compare with earlier outside prior studies that may be available, consider CT for further evaluation if clinically indicated No acute process otherwise. This agrees with the preliminary interpretation provided overnight by [facility] teleradiology service.
[2017-03-26 12:00] VITALS: BP 146/70
--- NOTE | 2017-03-26 15:05 | Nephrology Progress Note ---
Assessment/Plan Problem List: (1) Hypokalemia (2) E coli bacteremia (3) Hydronephrosis (4) FARRAH (acute kidney injury) (5) CKD (chronic kidney disease) stage 3, GFR 30-59 ml/min (6) Sepsis (7) Urinary tract infection (8) Hypomagnesemia Plan cont. iv fluids, reduce rate kcl, antibiotics, , lab improving, nausea and anorexia, stop gabapentin possible adverse effect, ate poorly today, replace Mg Subjective Constitutional: Reports: weakness HEENT: Reports: no symptoms Genitourinary: Reports: incontinence Neurologic/Psychiatric: Reports: pre-existing deficit Objective Objective Last 24 Hour Vital Signs Date Time Temp Pulse Resp B/P (MAP) Pulse Ox O2 Delivery O2 Flow Rate FiO2 03/26/17 12:00 72 03/26/17 12:00 98.2 96 20 146/70 94 Nasal Cannula 2.0 03/26/17 09:11 87 158/74 03/26/17 09:10 89 158/74 03/26/17 08:00 98.6 118 20 158/74 99 Nasal Cannula 2.0 03/26/17 08:00 97 03/26/17 04:00 86 03/26/17 04:00 97.5 84 18 145/60 96 Nasal Cannula 2.0 03/26/17 00:00 97.5 81 18 136/60 97 Nasal Cannula 2.0 03/26/17 00:00 83 03/25/17 22:24 90 142/64 03/25/17 20:00 96.6 90 20 142/64 94 Nasal Cannula 2.0 03/25/17 20:00 87 03/25/17 19:00 99 Room Air 21 03/25/17 19:00 Room Air 21 03/25/17 16:00 85 03/25/17 16:00 97.1 109 20 148/65 96 Nasal Cannula 2.0 Intake and Output 03/25/17 03/26/17 19:00 07:00 Intake Total 727.958 ml Output Total 1300 ml 300 ml Balance -572.042 ml -300 ml Intake Oral 708 ml IV Total 19.958 ml Output Urine Total 1300 ml 300 ml # Bowel Movements 1 Laboratory Tests 03/25/17 15:20: Activated Partial Thromboplast Time 119H 03/26/17 00:30: Activated Partial Thromboplast Time 29 03/26/17 05:35: White Blood Count 9.5, Red Blood Count 3.32L, Hemoglobin 11.0L, Hematocrit 32.8L , Mean Corpuscular Volume 99, Mean Corpuscular Hemoglobin 33.1H, Mean Corpuscular Hemoglobin Concent 33.6, Red Cell Distribution Width 14.8, Platelet Count 382, Mean Platelet Volume 6.5, Neutrophils (%) (Auto) 74.0, Lymphocytes (% ) (Auto) 13.4L, Monocytes (%) (Auto) 9.5, Eosinophils (%) (Auto) 1.4, Basophils (%) (Auto) 1.7, Sodium Level 146H, Potassium Level 3.9, Chloride Level 112H, Carbon Dioxide Level 20L, Anion Gap 15, Blood Urea Nitrogen 14, Creatinine 1.2, Estimat Glomerular Filtration Rate , Glucose Level 134H, Calcium Level 7.8L, Iron Level 82, Total Iron Binding Capacity 387, Percent Iron Saturation 21, Unsaturated Iron Binding 305, Total Bilirubin 0.4, Aspartate Amino Transf (AST/ SGOT) 26, Alanine Aminotransferase (ALT/SGPT) 47, Alkaline Phosphatase 156H, Total Protein 7.5, Albumin 2.8L, Globulin 4.7, Albumin/Globulin Ratio 0.6L, Vitamin B12 Level 1747H, Folate 14.1 Height (Feet): 5 Height (Inches): 4.00 Weight (Pounds): 110 General Appearance: no apparent distress, alert EENT: normal ENT inspection Neck: normal alignment Cardiovascular: normal rate, regular rhythm Respiratory/Chest: lungs clear Abdomen: non tender, soft Neurologic: chief underwriter II-XII grossly normal CLAUDETTE GARCÍA Mar 26, 2017 15:05
[2017-03-26] MEDS ORDERED: NS 275ml ONE (15:26)
[2017-03-26] MEDS ORDERED: 1/2 NS 1000ml IV ONE (15:26)
[2017-03-26] MEDS ORDERED: Tubing IV Secondary IV ONE (15:26)
[2017-03-26 16:00] VITALS: BP 147/61
--- NOTE | 2017-03-26 16:04 | Consultation ---
Consult Note Consult Note 89-year-old female recently hospitalized with acute myocardial infarction, DVT, and pulmonary embolus, [facility]. Patient presented with worsening lethargy and high-grade fevers. Patient has been on antibiotics and seen by multiple consultants and was noted to have possible pulmonary nodule and scarring on imaging I was called to evaluate further PAST MEDICAL HISTORY: 1. Osteoarthritis. 2. Degenerative disk disease. 3. Type 2 diabetes mellitus. 4. Hypertension with hypertensive heart disease. 5. Coronary artery disease 6. Right-sided facial zoster. 7. Postherpetic neuralgia. 8. History of pulmonary embolus. 9. History of myocardial infarction. MEDICATIONS: reviewed and reconciled. ALLERGIES: None known. FAMILY HISTORY: Noncontributory. SOCIAL HISTORY: Negative for smoking, alcohol, or substance abuse. SNF patient REVIEW OF SYSTEMS: unable 147/61 98.2 14 82 PHYSICAL EXAMINATION: HEENT: Temporal wasting. Right facial zoster. Oropharynx clear. NECK: Supple. Jugular venous pressure normal. LUNGS: With coarse breath sounds. moderate and symmetric; no wheeze CARDIAC: Regular rhythm and rate. Normal S1 and S2 with a fourth heart sound. ABDOMEN: Soft and nontender. no distention EXTREMITIES: Good pulses. No edema. no CC NEUROLOGIC: Withdrawn and lethargic, nonverbal Labs Test 03/24/17 06:40 03/24/17 17:22 03/25/17 04:45 03/25/17 14:40 White Blood Count 9.7 K/UL (4.8-10.8) 9.3 K/UL (4.8-10.8) 9.2 K/UL (4.8-10.8) Red Blood Count 3.26 M/UL (4.20-5.40) 3.29 M/UL (4.20-5.40) 3.52 M/UL (4.20-5.40) Hemoglobin 10.9 G/DL (12.0-16.0) 10.9 G/DL (12.0-16.0) 11.7 G/DL (12.0-16.0) Hematocrit 32.2 % (37.0-47.0) 32.3 % (37.0-47.0) 34.2 % (37.0-47.0) Mean Corpuscular Volume 99 FL (80-99) 98 FL (80-99) 97 FL (80-99) Mean Corpuscular Hemoglobin 33.4 PG (27.0-31.0) 33.2 PG (27.0-31.0) 33.1 PG (27.0-31.0) Mean Corpuscular Hemoglobin Concent 33.9 G/DL (32.0-36.0) 33.9 G/DL (32.0-36.0) 34.1 G/DL (32.0-36.0) Red Cell Distribution Width 14.3 % (11.6-14.8) 14.0 % (11.6-14.8) 14.0 % (11.6-14.8) Platelet Count 336 K/UL (150-450) 379 K/UL (150-450) 392 K/UL (150-450) Mean Platelet Volume 6.4 FL (6.5-10.1) 6.3 FL (6.5-10.1) 6.6 FL (6.5-10.1) Neutrophils (%) (Auto) 70.2 % (45.0-75.0) 69.5 % (45.0-75.0) 72.3 % (45.0-75.0) Lymphocytes (%) (Auto) 16.0 % (20.0-45.0) 16.6 % (20.0-45.0) 15.1 % (20.0-45.0) Monocytes (%) (Auto) 10.3 % (1.0-10.0) 10.7 % (1.0-10.0) 9.3 % (1.0-10.0) Eosinophils (%) (Auto) 2.0 % (0.0-3.0) 1.5 % (0.0-3.0) 1.8 % (0.0-3.0) Basophils (%) (Auto) 1.6 % (0.0-2.0) 1.7 % (0.0-2.0) 1.6 % (0.0-2.0) Sodium Level 144 MMOL/L (136-145) 147 MMOL/L (136-145) Potassium Level 3.5 MMOL/L (3.5-5.1) 3.2 MMOL/L (3.5-5.1) Chloride Level 109 MMOL/L (98-107) 111 MMOL/L (98-107) Carbon Dioxide Level 24 MMOL/L (21-32) 23 MMOL/L (21-32) Anion Gap 12 mmol/L (5-15) 13 mmol/L (5-15) Blood Urea Nitrogen 22 mg/dL (7-18) 17 mg/dL (7-18) Creatinine 1.3 MG/DL (0.55-1.30) 1.2 MG/DL (0.55-1.30) Estimat Glomerular Filtration Rate mL/min (>60) mL/min (>60) Glucose Level 106 MG/DL (74-106) 167 MG/DL (74-106) Calcium Level 7.6 MG/DL (8.5-10.1) 8.2 MG/DL (8.5-10.1) Magnesium Level 1.3 MG/DL (1.8-2.4) Activated Partial Thromboplast Time 29 SEC (23-33) 53 SEC (23-33) Test 03/25/17 15:20 03/26/17 00:30 03/26/17 05:35 Activated Partial Thromboplast Time 119 SEC (23-33) 29 SEC (23-33) White Blood Count 9.5 K/UL (4.8-10.8) Red Blood Count 3.32 M/UL (4.20-5.40) Hemoglobin 11.0 G/DL (12.0-16.0) Hematocrit 32.8 % (37.0-47.0) Mean Corpuscular Volume 99 FL (80-99) Mean Corpuscular Hemoglobin 33.1 PG (27.0-31.0) Mean Corpuscular Hemoglobin Concent 33.6 G/DL (32.0-36.0) Red Cell Distribution Width 14.8 % (11.6-14.8) Platelet Count 382 K/UL (150-450) Mean Platelet Volume 6.5 FL (6.5-10.1) Neutrophils (%) (Auto) 74.0 % (45.0-75.0) Lymphocytes (%) (Auto) 13.4 % (20.0-45.0) Monocytes (%) (Auto) 9.5 % (1.0-10.0) Eosinophils (%) (Auto) 1.4 % (0.0-3.0) Basophils (%) (Auto) 1.7 % (0.0-2.0) Sodium Level 146 MMOL/L (136-145) Potassium Level 3.9 MMOL/L (3.5-5.1) Chloride Level 112 MMOL/L (98-107) Carbon Dioxide Level 20 MMOL/L (21-32) Anion Gap 15 mmol/L (5-15) Blood Urea Nitrogen 14 mg/dL (7-18) Creatinine 1.2 MG/DL (0.55-1.30) Estimat Glomerular Filtration Rate mL/min (>60) Glucose Level 134 MG/DL (74-106) Calcium Level 7.8 MG/DL (8.5-10.1) Iron Level 82 ug/dL (50-175) Total Iron Binding Capacity 387 ug/dL (250-450) Percent Iron Saturation 21 % (15-50) Unsaturated Iron Binding 305 ug/dL (112-346) Total Bilirubin 0.4 MG/DL (0.2-1.0) Aspartate Amino Transf (AST/SGOT) 26 U/L (15-37) Alanine Aminotransferase (ALT/SGPT) 47 U/L (12-78) Alkaline Phosphatase 156 U/L (46-116) Total Protein 7.5 G/DL (6.4-8.2) Albumin 2.8 G/DL (3.4-5.0) Globulin 4.7 g/dL Albumin/Globulin Ratio 0.6 (1.0-2.7) Vitamin B12 Level 1747 PG/ML (193-986) Folate 14.1 NG/ML (8.6-58.9) IMPRESSION PE pulmonary nodule pulmonary scarring acute on chronic encephalopathy ischemic cardiomyopathy MA PLAN care noted and reviewed IV antibiotics noted per ID respiratory care SNF meds supportive care suction as needed aspiration precautions oxygen therapy would not pursue aggressive measures not a surgical candidate prognosis guarded SHANE URIBE Mar 26, 2017 16:04
[2017-03-26 20:00] VITALS: BP 157/70
[2017-03-26] MEDS: Tamsulosin 0.4mg cap ORAL SCH (21:03)
--- NOTE | 2017-03-26 23:05 | Progress Note ---
DATE: 03/25/2017 CARDIOLOGY PROGRESS NOTE SUBJECTIVE: The patient continues to have nausea and poor appetite. She notes abdominal pain, but it is nonlocalized. A CT scan of the abdomen yesterday was unrevealing other than mild bladder wall thickening. OBJECTIVE: VITAL SIGNS: Blood pressure 145/71, pulse 92, respiratory rate 20, and afebrile. NECK: Supple. LUNGS: Clear. CARDIAC: Regular. Normal S1 and S2. There is a fourth heart sound. ABDOMEN: Soft and nontender. No guarding. No rebound. There is only mild suprapubic tenderness. EXTREMITIES: No edema. LABORATORY AND DIAGNOSTIC DATA: White count 9.2 and hemoglobin 11.7. Potassium 3.2 and sodium 147. Magnesium yesterday 1.3. IMPRESSION: 1. Dehydration. 2. Hyponatremia. 3. Hypokalemia. 4. Hyperchloremia. 5. Recovering sepsis. 6. Recent pulmonary embolus. 7. Hypomagnesemia. PLAN: 1. Adjust intravenous fluids. 2. Discontinue any nonessential medication, which may be contributing to her GI symptoms. 3. Antimicrobials. 4. Probiotic. 5. Titrate antihypertensive regimen. 6. Continue full anticoagulation. Jus Cool M.D. DR: SHELIA JOB#: [id number] CC:
[2017-03-27] VITALS: BP 146/70
[2017-03-27 04:00] VITALS: BP 154/68
[2017-03-27] MEDS: Piperacillin/Tazobactam 3.375 GM in NS 110 ML IVPB SCH (05:03)
--- NOTE | 2017-03-27 05:45 | Progress Note ---
DATE: 03/27/2017 SUBJECTIVE: The patient still has a very poor appetite. Limited mobility. No chest pain or shortness of breath. The patient's anticoagulation was held yesterday due to some hemoptysis, which has resolved. OBJECTIVE: VITALS SIGNS: Blood pressure 158/74, heart rate 87, respiratory rate 18, afebrile, and room air oxygen saturation 98%. HEENT: Right facial scarring from zoster dry. LUNGS: Clear. CARDIAC: Regular rhythm and rate. Normal S1, S2 with a fourth heart sound. ABDOMEN: Soft. EXTREMITIES: With trace edema. LABORATORY AND DIAGNOSTIC DATA: CAT scan of the abdomen yesterday revealed no acute findings. White count 9.5 and hemoglobin 11. Sodium 146, potassium 3.9, bicarbonate 20, BUN 14, and creatinine 1.2. Albumin 2.8. B12 and folate levels normal and iron is 82. IMPRESSION: 1. Dehydration. 2. Hyponatremia. 3. Hyperchloremia. 4. Deep venous thrombosis. 5. Pulmonary embolism. 6. Status post acute myocardial infarction. 7. Chronic anemia. 8. Moderate protein-calorie malnutrition. PLAN: Await mobilize. We need to resume anticoagulation if no new bleeding. Pulmonary evaluation noted and CT scan pending. Continue hypotonic fluids. DVT prophylaxis. Jus Cool M.D. DR: Michel JOB#: [id number] CC:
[2017-03-27] MEDS: NovoLOG Insulin Flexpen SUBQ SCH ×3 (06:14→17:37)
[2017-03-27 06:39] LABS: EOSINOPHILS % (AUTO) 2.2 % (0.0-3.0); HEMATOCRIT 31.1 % (37.0-47.0); HEMOGLOBIN 10.6 G/DL (12.0-16.0); LYMPHOCYTES % (AUTO) 14.8 % (20.0-45.0); MEAN CORPUSCULAR VOLUME 99 FL (80-99); MONOCYTES % (AUTO) 9.9 % (1.0-10.0); NEUTROPHILS % (AUTO) 71.1 % (45.0-75.0); PLATELET COUNT 386 K/UL (150-450); RED BLOOD COUNT 3.14 M/UL (4.20-5.40); RED CELL DISTRIBUTION WIDTH 14.8 % (11.6-14.8); WHITE BLOOD COUNT 9.1 K/UL (4.8-10.8)
[2017-03-27 07:30] LABS: ANION GAP 10 mmol/L (5-15); BLOOD UREA NITROGEN 12 mg/dL (7-18); CALCIUM 7.7 MG/DL (8.5-10.1); CARBON DIOXIDE 22 MMOL/L (21-32); CHLORIDE 111 MMOL/L (98-107); CREATININE 1.1 MG/DL (0.55-1.30); POTASSIUM 3.8 MMOL/L (3.5-5.1); SODIUM 143 MMOL/L (136-145)
[2017-03-27 08:00] VITALS: BP 157/70
--- NOTE | 2017-03-27 08:32 | Pulmonology Progress Note ---
Assessment/Plan Assessment/Plan IMPRESSION PE pulmonary nodule pulmonary scarring acute on chronic encephalopathy ischemic cardiomyopathy CA PLAN care noted and reviewed IV antibiotics noted per ID respiratory care SNF meds supportive care suction as needed aspiration precautions oxygen therapy would not pursue aggressive measures not a surgical candidate prognosis guarded Subjective Allergies: Coded Allergies: No Known Allergies (Unverified , 03/17/17) Objective Last 24 Hour Vital Signs Date Time Temp Pulse Resp B/P (MAP) Pulse Ox O2 Delivery O2 Flow Rate FiO2 03/27/17 04:00 97.7 85 20 154/68 95 Room Air 03/27/17 04:00 104 03/27/17 00:00 97.3 102 20 146/70 97 Room Air 03/26/17 23:52 84 03/26/17 21:04 70 157/70 03/26/17 20:00 87 03/26/17 20:00 97.2 85 20 157/70 98 Room Air 03/26/17 16:00 96.8 84 22 147/61 98 Room Air 03/26/17 16:00 81 03/26/17 12:00 72 03/26/17 12:00 98.2 96 20 146/70 94 Nasal Cannula 2.0 03/26/17 09:11 87 158/74 03/26/17 09:10 89 158/74 Intake and Output 03/26/17 03/27/17 19:00 07:00 Intake Total 943.0 ml 960.0 ml Output Total 1525 ml Balance 943.0 ml -565.0 ml Intake Oral 120 ml 200 ml IV Total 823.0 ml 760.0 ml Output Urine Total 1525 ml Objective HEENT: Temporal wasting. Right facial zoster. Oropharynx clear. NECK: Supple. Jugular venous pressure normal. LUNGS: With coarse breath sounds. moderate and symmetric; no wheeze CARDIAC: Regular rhythm and rate. Normal S1 and S2 with a fourth heart sound. ABDOMEN: Soft and nontender. no distention EXTREMITIES: Good pulses. No edema. no CC NEUROLOGIC: Withdrawn and lethargic, nonverbal Laboratory Tests 03/27/17 04:55: White Blood Count 9.1, Red Blood Count 3.14L, Hemoglobin 10.6L, Hematocrit 31.1L , Mean Corpuscular Volume 99, Mean Corpuscular Hemoglobin 33.6H, Mean Corpuscular Hemoglobin Concent 34.0, Red Cell Distribution Width 14.8, Platelet Count 386, Mean Platelet Volume 6.5, Neutrophils (%) (Auto) 71.1, Lymphocytes (% ) (Auto) 14.8L, Monocytes (%) (Auto) 9.9, Eosinophils (%) (Auto) 2.2, Basophils (%) (Auto) 2.0, Sodium Level 143, Potassium Level 3.8, Chloride Level 111H, Carbon Dioxide Level 22, Anion Gap 10, Blood Urea Nitrogen 12, Creatinine 1.1, Estimat Glomerular Filtration Rate , Glucose Level 119H, Calcium Level 7.7L Current Medications Medications (Trade) Dose Ordered Sig/Aditi Route PRN Reason Start Time Stop Time Status Last Admin Dose Admin Acetaminophen (Tylenol) 650 mg Q4H PRN ORAL Mild Pain/Temp > 100.5 03/17/17 22:30 04/16/17 22:29 03/18/17 08:09 Amlodipine Besylate (Norvasc) 5 mg DAILY ORAL 03/20/17 13:00 04/19/17 12:59 03/26/17 09:11 Dextrose (Dextrose 50%) STAT PRN IV Hypoglycemia 03/17/17 22:30 04/16/17 22:29 Diphenhydramine HCl (Benadryl) 25 mg Q8H PRN ORAL Itching 03/23/17 13:15 04/22/17 13:14 Docusate Sodium (Colace) 100 mg TWICE A DAY ORAL 03/22/17 18:00 04/21/17 17:59 03/25/17 17:41 Famotidine (Pepcid) 20 mg QPM ORAL 03/25/17 16:30 04/24/17 16:29 03/26/17 17:23 Hydralazine HCl (Apresoline) 10 mg Q4H PRN IV For High Blood Pressure 03/20/17 12:45 04/19/17 12:44 Insulin Aspart (NovoLOG) BEFORE MEALS AND HS SUBQ 03/18/17 06:30 04/17/17 06:29 03/27/17 06:14 Lactobacillus Acidophilus (Culturelle) 1 tab THREE TIMES A DAY ORAL 03/25/17 18:00 04/24/17 17:59 03/26/17 17:23 Magnesium Oxide (Mag-Ox 400mg) 400 mg THREE TIMES A DAY ORAL 03/24/17 18:00 04/23/17 17:59 03/26/17 17:23 Megestrol Acetate (Megace) 200 mg Q12HR ORAL 03/22/17 21:00 04/21/17 20:59 03/26/17 09:10 Metoprolol Tartrate (Lopressor) 25 mg Q12HR ORAL 03/22/17 09:00 04/21/17 08:59 03/26/17 21:04 Nystatin (Nystatin) 5 ml QID ORAL 03/27/17 09:00 04/03/17 08:59 UNV Ondansetron HCl (Zofran) 4 mg Q4H PRN IVP Nausea & Vomiting 03/22/17 10:30 04/21/17 10:29 03/25/17 12:56 Piperacillin Sod/ Tazobactam Sod 3.375 gm/Sodium Chloride 110 ml @ 27.5 mls/hr Q8HR@0400,1200,2000 IVPB 03/22/17 20:00 03/29/17 19:59 03/27/17 05:03 Sennosides (Senokot) 1 tab DAILY PRN ORAL Constipation 03/17/17 22:30 04/16/17 22:29 Sodium 1,000 ml @ 50 mls/hr Q20H IV 03/26/17 15:30 04/25/17 15:29 03/26/17 15:20 Tamsulosin HCl (Flomax) 0.4 mg BEDTIME ORAL 03/21/17 21:00 04/20/17 20:59 03/26/17 21:03 SHANE URIBE Mar 27, 2017 08:32
[2017-03-27] MEDS: Docusate 100mg/10ml Liq ORAL SCH ×2 (08:40→17:34)
[2017-03-27] MEDS: Megace 400mg/10ml Susp ORAL SCH (08:41)
[2017-03-27] MEDS: Metoprolol 25mg tab ORAL SCH (08:42)
[2017-03-27] MEDS: Lactobacillus-GG tablet ORAL SCH ×3 (08:42→17:34)
[2017-03-27] MEDS: Magnesium Oxide 400mg tab ORAL SCH ×3 (08:42→17:34)
[2017-03-27] MEDS: Nystatin Susp 500,000 units/5ml ORAL SCH ×3 (08:46→17:34)
--- NOTE | 2017-03-27 09:30 | General Progress Note ---
Assessment/Plan Assessment/Plan Assessment - epigastric pain - anorexia - PE - off of anticoagulation - hemoptysis - abnormal LFT - resolving - Azotemia - resolved - Anemia, w/o Iron deficiency Recommendations - IVF - push po - follow labs - monitor intake - can consider EGD and PEG if fails to improve Subjective Allergies: Coded Allergies: No Known Allergies (Unverified , 03/17/17) Subjective above noted EGD cancelled today due to pulmonary issues IV heparin held due to hemoptysis sitting, eating breakfast Objective Last 24 Hour Vital Signs Date Time Temp Pulse Resp B/P (MAP) Pulse Ox O2 Delivery O2 Flow Rate FiO2 03/27/17 08:42 104 154/68 03/27/17 08:42 85 157/70 03/27/17 04:00 97.7 85 20 154/68 95 Room Air 03/27/17 04:00 104 03/27/17 00:00 97.3 102 20 146/70 97 Room Air 03/26/17 23:52 84 03/26/17 21:04 70 157/70 03/26/17 20:00 87 03/26/17 20:00 97.2 85 20 157/70 98 Room Air 03/26/17 16:00 96.8 84 22 147/61 98 Room Air 03/26/17 16:00 81 03/26/17 12:00 72 03/26/17 12:00 98.2 96 20 146/70 94 Nasal Cannula 2.0 Intake and Output 03/26/17 03/27/17 19:00 07:00 Intake Total 943.0 ml 960.0 ml Output Total 1525 ml Balance 943.0 ml -565.0 ml Intake Oral 120 ml 200 ml IV Total 823.0 ml 760.0 ml Output Urine Total 1525 ml Laboratory Tests 03/27/17 04:55: White Blood Count 9.1, Red Blood Count 3.14L, Hemoglobin 10.6L, Hematocrit 31.1L , Mean Corpuscular Volume 99, Mean Corpuscular Hemoglobin 33.6H, Mean Corpuscular Hemoglobin Concent 34.0, Red Cell Distribution Width 14.8, Platelet Count 386, Mean Platelet Volume 6.5, Neutrophils (%) (Auto) 71.1, Lymphocytes (% ) (Auto) 14.8L, Monocytes (%) (Auto) 9.9, Eosinophils (%) (Auto) 2.2, Basophils (%) (Auto) 2.0, Sodium Level 143, Potassium Level 3.8, Chloride Level 111H, Carbon Dioxide Level 22, Anion Gap 10, Blood Urea Nitrogen 12, Creatinine 1.1, Estimat Glomerular Filtration Rate , Glucose Level 119H, Calcium Level 7.7L Height (Feet): 5 Height (Inches): 4.00 Weight (Pounds): 110 Objective Thin woman NCAT supple chest coarse BS RRR soft ND, mild epigastric TTP no edema nonfocal BHARATHI TOVAR Mar 27, 2017 09:30
--- NOTE | 2017-03-27 10:02 | General Progress Note ---
Assessment/Plan Problem List: (1) Urinary tract infection ICD Codes: N39.0 - Urinary tract infection, site not specified SNOMED: 88954724 (2) Renal insufficiency ICD Codes: N28.9 - Disorder of kidney and ureter, unspecified SNOMED: 502727969, 445511858 (3) History of shingles ICD Codes: Z86.19 - Personal history of other infectious and parasitic diseases SNOMED: 399297402056344 (4) Sepsis ICD Codes: A41.9 - Sepsis, unspecified organism SNOMED: 76984782 Status: stable, progressing Assessment/Plan iv abx per id resume xarelto venous duplex ct chest pulm eval bowel regime ivf cartwright bp rx encourage pos dc planning Subjective ROS Limited/Unobtainable: No Constitutional: Reports: malaise, weakness HEENT: Reports: no symptoms Cardiovascular: Reports: no symptoms Respiratory: Reports: cough Gastrointestinal/Abdominal: Reports: no symptoms Genitourinary: Reports: no symptoms Neurologic/Psychiatric: Reports: no symptoms Endocrine: Reports: no symptoms Hematologic/Lymphatic: Reports: no symptoms Allergies: Coded Allergies: No Known Allergies (Unverified , 03/17/17) All Systems: reviewed and negative except above Subjective no more hemoptysis. no cp/sob. constipation better. Objective Last 24 Hour Vital Signs Date Time Temp Pulse Resp B/P (MAP) Pulse Ox O2 Delivery O2 Flow Rate FiO2 03/27/17 08:42 104 154/68 03/27/17 08:42 85 157/70 03/27/17 04:00 97.7 85 20 154/68 95 Room Air 03/27/17 04:00 104 03/27/17 00:00 97.3 102 20 146/70 97 Room Air 03/26/17 23:52 84 03/26/17 21:04 70 157/70 03/26/17 20:00 87 03/26/17 20:00 97.2 85 20 157/70 98 Room Air 03/26/17 16:00 96.8 84 22 147/61 98 Room Air 03/26/17 16:00 81 03/26/17 12:00 72 03/26/17 12:00 98.2 96 20 146/70 94 Nasal Cannula 2.0 Intake and Output 03/26/17 03/27/17 18:59 06:59 Intake Total 943.0 ml 960.0 ml Output Total 1525 ml Balance 943.0 ml -565.0 ml Intake Oral 120 ml 200 ml IV Total 823.0 ml 760.0 ml Output Urine Total 1525 ml Laboratory Tests 03/27/17 04:55: White Blood Count 9.1, Red Blood Count 3.14L, Hemoglobin 10.6L, Hematocrit 31.1L , Mean Corpuscular Volume 99, Mean Corpuscular Hemoglobin 33.6H, Mean Corpuscular Hemoglobin Concent 34.0, Red Cell Distribution Width 14.8, Platelet Count 386, Mean Platelet Volume 6.5, Neutrophils (%) (Auto) 71.1, Lymphocytes (% ) (Auto) 14.8L, Monocytes (%) (Auto) 9.9, Eosinophils (%) (Auto) 2.2, Basophils (%) (Auto) 2.0, Sodium Level 143, Potassium Level 3.8, Chloride Level 111H, Carbon Dioxide Level 22, Anion Gap 10, Blood Urea Nitrogen 12, Creatinine 1.1, Estimat Glomerular Filtration Rate , Glucose Level 119H, Calcium Level 7.7L Height (Feet): 5 Height (Inches): 4.00 Weight (Pounds): 110 Objective General Appearance: WD/WN Neck: supple Cardiovascular: normal rate, regular rhythm Respiratory/Chest: chest wall non-tender, lungs clear, normal breath sounds, no respiratory distress Abdomen: normal bowel sounds, non tender, soft, no organomegaly Edema: no edema noted Arm (L), no edema noted Arm (R), no edema noted Leg (L), no edema noted Leg (R), no edema noted Pedal (L), no edema noted Pedal (R), no edema noted Generalized Neurologic: alert, responsive NOE TRAVIS Mar 27, 2017 10:02
--- NOTE | 2017-03-27 10:06 | Urology Progress Note ---
Assessment/Plan Assessment/Plan urinary retention probable neurogenic bladder (atonic) CRI/FARRAH, improved UTI hematuria proteinuria hydronephrosis renal cyst sepsis pyelo? keep cartwright for now abx as ordered flomax added monitor renal fxn voiding trial soon, once more ambulatory cysto later Subjective Allergies: Coded Allergies: No Known Allergies (Unverified , 03/17/17) Subjective looks comfortable Objective Last 24 Hour Vital Signs Date Time Temp Pulse Resp B/P (MAP) Pulse Ox O2 Delivery O2 Flow Rate FiO2 03/27/17 08:42 104 154/68 03/27/17 08:42 85 157/70 03/27/17 04:00 97.7 85 20 154/68 95 Room Air 03/27/17 04:00 104 03/27/17 00:00 97.3 102 20 146/70 97 Room Air 03/26/17 23:52 84 03/26/17 21:04 70 157/70 03/26/17 20:00 87 03/26/17 20:00 97.2 85 20 157/70 98 Room Air 03/26/17 16:00 96.8 84 22 147/61 98 Room Air 03/26/17 16:00 81 03/26/17 12:00 72 03/26/17 12:00 98.2 96 20 146/70 94 Nasal Cannula 2.0 Intake and Output 03/26/17 03/27/17 19:00 07:00 Intake Total 943.0 ml 960.0 ml Output Total 1525 ml Balance 943.0 ml -565.0 ml Intake Oral 120 ml 200 ml IV Total 823.0 ml 760.0 ml Output Urine Total 1525 ml Microbiology Date/Time Source Procedure Growth Status 03/17/17 18:00 Blood Blood Culture - Final Escherichia Coli - Esbl Complete 03/17/17 18:00 Nasal Nares Influenza Types A,B Antigen (HANNAH) - Final Complete 03/23/17 16:30 Indwelling Cath Urine Culture - Final NO GROWTH AFTER 48 HOURS Complete 03/19/17 09:55 Arm Right Catheter Tip Culture - Final NO GROWTH AFTER 4 DAYS Complete Current Medications Medications (Trade) Dose Ordered Sig/Aditi Route PRN Reason Start Time Stop Time Status Last Admin Dose Admin Acetaminophen (Tylenol) 650 mg Q4H PRN ORAL Mild Pain/Temp > 100.5 03/17/17 22:30 04/16/17 22:29 03/18/17 08:09 Amlodipine Besylate (Norvasc) 5 mg DAILY ORAL 03/20/17 13:00 04/19/17 12:59 03/27/17 08:42 Apixaban (Eliquis) 2.5 mg BID ORAL 03/27/17 18:00 04/26/17 17:59 UNV Dextrose (Dextrose 50%) STAT PRN IV Hypoglycemia 03/17/17 22:30 04/16/17 22:29 Diphenhydramine HCl (Benadryl) 25 mg Q8H PRN ORAL Itching 03/23/17 13:15 04/22/17 13:14 Docusate Sodium (Colace) 100 mg TWICE A DAY ORAL 03/22/17 18:00 04/21/17 17:59 03/27/17 08:40 Famotidine (Pepcid) 20 mg QPM ORAL 03/25/17 16:30 04/24/17 16:29 03/26/17 17:23 Hydralazine HCl (Apresoline) 10 mg Q4H PRN IV For High Blood Pressure 03/20/17 12:45 04/19/17 12:44 Insulin Aspart (NovoLOG) BEFORE MEALS AND HS SUBQ 03/18/17 06:30 04/17/17 06:29 03/27/17 06:14 Lactobacillus Acidophilus (Culturelle) 1 tab THREE TIMES A DAY ORAL 03/25/17 18:00 04/24/17 17:59 03/27/17 08:42 Magnesium Oxide (Mag-Ox 400mg) 400 mg THREE TIMES A DAY ORAL 03/24/17 18:00 04/23/17 17:59 03/27/17 08:42 Megestrol Acetate (Megace) 200 mg Q12HR ORAL 03/22/17 21:00 04/21/17 20:59 03/27/17 08:41 Metoprolol Tartrate (Lopressor) 25 mg Q12HR ORAL 03/22/17 09:00 04/21/17 08:59 03/27/17 08:42 Nystatin (Nystatin) 5 ml QID ORAL 03/27/17 09:00 04/03/17 08:59 03/27/17 08:46 Ondansetron HCl (Zofran) 4 mg Q4H PRN IVP Nausea & Vomiting 03/22/17 10:30 04/21/17 10:29 03/25/17 12:56 Piperacillin Sod/ Tazobactam Sod 3.375 gm/Sodium Chloride 110 ml @ 27.5 mls/hr Q8HR@0400,1200,2000 IVPB 03/22/17 20:00 03/29/17 19:59 03/27/17 05:03 Sennosides (Senokot) 1 tab DAILY PRN ORAL Constipation 03/17/17 22:30 04/16/17 22:29 Sodium 1,000 ml @ 50 mls/hr Q20H IV 03/26/17 15:30 04/25/17 15:29 03/26/17 15:20 Tamsulosin HCl (Flomax) 0.4 mg BEDTIME ORAL 03/21/17 21:00 04/20/17 20:59 03/26/17 21:03 Laboratory Tests 03/27/17 04:55: White Blood Count 9.1, Red Blood Count 3.14L, Hemoglobin 10.6L, Hematocrit 31.1L , Mean Corpuscular Volume 99, Mean Corpuscular Hemoglobin 33.6H, Mean Corpuscular Hemoglobin Concent 34.0, Red Cell Distribution Width 14.8, Platelet Count 386, Mean Platelet Volume 6.5, Neutrophils (%) (Auto) 71.1, Lymphocytes (% ) (Auto) 14.8L, Monocytes (%) (Auto) 9.9, Eosinophils (%) (Auto) 2.2, Basophils (%) (Auto) 2.0, Sodium Level 143, Potassium Level 3.8, Chloride Level 111H, Carbon Dioxide Level 22, Anion Gap 10, Blood Urea Nitrogen 12, Creatinine 1.1, Estimat Glomerular Filtration Rate , Glucose Level 119H, Calcium Level 7.7L Height (Feet): 5 Height (Inches): 4.00 Weight (Pounds): 110 Objective exam stable, urine yellow with some debris CT (2/3) noted ELIUD CRABTREE Mar 27, 2017 10:06
--- NOTE | 2017-03-27 10:50 | Infectious Diseases Prog Note ---
Assessment/Plan Assessment/Plan A; E. coli ESBL sepsis treated E. Coli UTI treated Suspected herpetic encephalopathy treated Acute renal failure resolving Urinary retention, neurogenic bladder Anemia P; discontinue Zosyn Subjective ROS Limited/Unobtainable: Yes Constitutional: Reports: other - poor appetite Respiratory: Reports: no symptoms Cardiovascular: Reports: no symptoms Gastrointestinal/Abdominal: Reports: no symptoms Genitourinary: Reports: no symptoms Allergies: Coded Allergies: No Known Allergies (Unverified , 03/17/17) Objective Vital Signs Last 24 Hour Vital Signs Date Time Temp Pulse Resp B/P (MAP) Pulse Ox O2 Delivery O2 Flow Rate FiO2 03/27/17 08:42 104 154/68 03/27/17 08:42 85 157/70 03/27/17 08:00 88 03/27/17 08:00 97.2 85 20 157/70 98 Room Air 03/27/17 04:00 97.7 85 20 154/68 95 Room Air 03/27/17 04:00 104 03/27/17 00:00 97.3 102 20 146/70 97 Room Air 03/26/17 23:52 84 03/26/17 21:04 70 157/70 03/26/17 20:00 87 03/26/17 20:00 97.2 85 20 157/70 98 Room Air 03/26/17 16:00 96.8 84 22 147/61 98 Room Air 03/26/17 16:00 81 03/26/17 12:00 72 03/26/17 12:00 98.2 96 20 146/70 94 Nasal Cannula 2.0 Height (Feet): 5 Height (Inches): 4.00 Weight (Pounds): 110 General Appearance: no acute distress HEENT: mucous membranes moist Respiratory/Chest: lungs clear Cardiovascular: normal rate Abdomen: soft, non tender Extremities: no edema Neurologic/Psychiatric: alert, responsive Laboratory Tests Test 03/27/17 04:55 White Blood Count 9.1 K/UL (4.8-10.8) Red Blood Count 3.14 M/UL (4.20-5.40) L Hemoglobin 10.6 G/DL (12.0-16.0) L Hematocrit 31.1 % (37.0-47.0) L Mean Corpuscular Volume 99 FL (80-99) Mean Corpuscular Hemoglobin 33.6 PG (27.0-31.0) H Mean Corpuscular Hemoglobin Concent 34.0 G/DL (32.0-36.0) Red Cell Distribution Width 14.8 % (11.6-14.8) Platelet Count 386 K/UL (150-450) Mean Platelet Volume 6.5 FL (6.5-10.1) Neutrophils (%) (Auto) 71.1 % (45.0-75.0) Lymphocytes (%) (Auto) 14.8 % (20.0-45.0) L Monocytes (%) (Auto) 9.9 % (1.0-10.0) Eosinophils (%) (Auto) 2.2 % (0.0-3.0) Basophils (%) (Auto) 2.0 % (0.0-2.0) Sodium Level 143 MMOL/L (136-145) Potassium Level 3.8 MMOL/L (3.5-5.1) Chloride Level 111 MMOL/L (98-107) H Carbon Dioxide Level 22 MMOL/L (21-32) Anion Gap 10 mmol/L (5-15) Blood Urea Nitrogen 12 mg/dL (7-18) Creatinine 1.1 MG/DL (0.55-1.30) Estimat Glomerular Filtration Rate mL/min (>60) Glucose Level 119 MG/DL (74-106) H Calcium Level 7.7 MG/DL (8.5-10.1) L Current Medications Medications (Trade) Dose Ordered Sig/Aditi Route PRN Reason Start Time Stop Time Status Last Admin Dose Admin Acetaminophen (Tylenol) 650 mg Q4H PRN ORAL Mild Pain/Temp > 100.5 03/17/17 22:30 04/16/17 22:29 03/18/17 08:09 Amlodipine Besylate (Norvasc) 5 mg DAILY ORAL 03/20/17 13:00 04/19/17 12:59 03/27/17 08:42 Apixaban (Eliquis) 2.5 mg BID ORAL 03/27/17 18:00 04/26/17 17:59 Dextrose (Dextrose 50%) STAT PRN IV Hypoglycemia 03/17/17 22:30 04/16/17 22:29 Diphenhydramine HCl (Benadryl) 25 mg Q8H PRN ORAL Itching 03/23/17 13:15 04/22/17 13:14 Docusate Sodium (Colace) 100 mg TWICE A DAY ORAL 03/22/17 18:00 04/21/17 17:59 03/27/17 08:40 Famotidine (Pepcid) 20 mg QPM ORAL 03/25/17 16:30 04/24/17 16:29 03/26/17 17:23 Hydralazine HCl (Apresoline) 10 mg Q4H PRN IV For High Blood Pressure 03/20/17 12:45 04/19/17 12:44 Insulin Aspart (NovoLOG) BEFORE MEALS AND HS SUBQ 03/18/17 06:30 04/17/17 06:29 03/27/17 06:14 Lactobacillus Acidophilus (Culturelle) 1 tab THREE TIMES A DAY ORAL 03/25/17 18:00 04/24/17 17:59 03/27/17 08:42 Magnesium Oxide (Mag-Ox 400mg) 400 mg THREE TIMES A DAY ORAL 03/24/17 18:00 04/23/17 17:59 03/27/17 08:42 Megestrol Acetate (Megace) 200 mg Q12HR ORAL 03/22/17 21:00 04/21/17 20:59 03/27/17 08:41 Metoprolol Tartrate (Lopressor) 25 mg Q12HR ORAL 03/22/17 09:00 04/21/17 08:59 03/27/17 08:42 Nystatin (Nystatin) 5 ml QID ORAL 03/27/17 09:00 04/03/17 08:59 03/27/17 08:46 Ondansetron HCl (Zofran) 4 mg Q4H PRN IVP Nausea & Vomiting 03/22/17 10:30 04/21/17 10:29 03/25/17 12:56 Piperacillin Sod/ Tazobactam Sod 3.375 gm/Sodium Chloride 110 ml @ 27.5 mls/hr Q8HR@0400,1200,2000 IVPB 03/22/17 20:00 03/29/17 19:59 03/27/17 05:03 Sennosides (Senokot) 1 tab DAILY PRN ORAL Constipation 03/17/17 22:30 04/16/17 22:29 Sodium 1,000 ml @ 50 mls/hr Q20H IV 03/26/17 15:30 04/25/17 15:29 03/26/17 15:20 Tamsulosin HCl (Flomax) 0.4 mg BEDTIME ORAL 03/21/17 21:00 04/20/17 20:59 03/26/17 21:03 HANG CASTELLANOS Mar 27, 2017 10:50
--- NOTE | 2017-03-27 11:41 | Diagnostic Imaging Report ---
Clinical Indication: Cough Technique: Spiral acquisitions obtained through the chest. No IV contrast utilized, due to history of renal insufficiency and per referring physician request. Multiplanar reconstructions generated. Total dose length product 473.17 mGycm. CTDIvol(s) 15.27 mGy. Dose reduction achieved using automated exposure control Comparison: none Findings:There is some image degradation due to respiratory motion artifact. Minimal scarring is seen in the lung apices. Areas of dependent atelectasis are seen at the lung bases. No definite infiltrates, effusions, nodules, or masses demonstrated. An area of osseous sclerosis is seen in the anterior left fourth rib. This accounts for the abnormality described on recent chest radiograph. There is a similar appearing focus of osseous sclerosis in the adjacent left fifth rib. This is less clearly evident on the chest radiograph. No definite associated fracture deformities The heart size is borderline enlarged. No pericardial effusion. The ascending thoracic aorta is somewhat ectatic, measuring 3.6 cm in diameter. No mediastinal or hilar mass or adenopathy. Subcentimeter low-attenuation lesion is seen in the left lower pole of the thyroid. No axillary or chest wall mass or adenopathy. The included upper abdominal anatomy is unremarkable. The bones demonstrate, in addition to the above-described rib lesions, mild degenerative spondylosis changes. There is inferior endplate compression deformity of the L1 vertebral body Impression: Focus of osteosclerosis of the anterior left fourth rib, accounting for the nodular opacity described on recent chest radiograph. No evidence of lung mass Similar focus in the adjacent anterolateral left fifth rib. These lesions most likely represent sequela of prior trauma, given their adjacency and absent of similar lesions elsewhere. However, given the lack of a fracture deformity, the possibility of pathologic lesion such as metastatic neoplasm, while unlikely, cannot be completely excluded. No acute pulmonary process Borderline cardiomegaly L1 vertebral body inferior endplate compression fracture deformity, age indeterminate. Consider MRI for better characterization if this is clinically relevant The CT scanner at [facility] is accredited by the [employer] and the scans are performed using protocols designed to limit radiation exposure to as low as reasonably achievable to attain images of sufficient resolution adequate for diagnostic evaluation.
[2017-03-27 12:00] VITALS: BP 139/56
[2017-03-27] MEDS: 1/2NS w/KCl 20mEq 1000ml 1,000 ML IV SCH (13:22)
--- NOTE | 2017-03-27 13:49 | Wound Care Consultation ---
Wound Assessment Wound Assessment : Wound Number: 1 Wound Present on Admission: Yes New Wound: No Status Change of Wound: No Wound Location Body Site Modif: mid Wound Type: pressure ulcer Marilynn Test: Does not Marilynn Pressure Ulcer Stage: Deep Tissue Injury Wound Thickness: Full Thickness Wound Length: 4.0 Wound Width: 5.0 Wound Depth: utd Percent of Wound Purple/Maroon: 100 Wound Drainage Amount: None Wound Drainage Odor: None/Absent Tissue Surrounding Wound: Intact Wound General Appearance: Reddened - Deep red Wound Comment #1 Sacrococcygeal DTI pressure ulcer. Skin still intact Reassessed this Pt. Good progress noted. Skin still intact. Will follow same wound care treatment and recommendations below Recommendation -Local wound care per protocol -Keep clean and dry -Turn and reposition -Offload both heels -Heel protector on both heels -Optimize nutrition -Low air loss mattress -Assess f/u accordingly for any changes CASIMIRO MEYERS RN Mar 27, 2017 13:49
--- NOTE | 2017-03-27 13:57 | Cardiology Report ---
APPROVED REPORT EKG Measurement Heart [id number] ME [id number] Sinus tachycardia Otherwise normal ECG
[2017-03-27 16:00] VITALS: BP 141/68
--- NOTE | 2017-03-27 17:59 | Nephrology Progress Note ---
Assessment/Plan Problem List: (1) Hypokalemia (2) E coli bacteremia (3) Hydronephrosis (4) FARRAH (acute kidney injury) (5) CKD (chronic kidney disease) stage 3, GFR 30-59 ml/min (6) Sepsis (7) Urinary tract infection (8) Hypomagnesemia Plan cont. iv fluids, reduce rate kcl, antibiotics, , lab improving, nausea and anorexia, stop gabapentin possible adverse effect, ate poorly today, replace Mg Subjective ROS Limited/Unobtainable: Yes Objective Objective Last 24 Hour Vital Signs Date Time Temp Pulse Resp B/P (MAP) Pulse Ox O2 Delivery O2 Flow Rate FiO2 03/27/17 16:00 97.7 76 20 141/68 100 Nasal Cannula 03/27/17 16:00 76 03/27/17 12:00 76 03/27/17 12:00 97.2 75 20 139/56 98 Room Air 03/27/17 08:42 104 154/68 03/27/17 08:42 85 157/70 03/27/17 08:00 88 03/27/17 08:00 97.2 85 20 157/70 98 Room Air 03/27/17 04:00 97.7 85 20 154/68 95 Room Air 03/27/17 04:00 104 03/27/17 00:00 97.3 102 20 146/70 97 Room Air 03/26/17 23:52 84 03/26/17 21:04 70 157/70 03/26/17 20:00 87 03/26/17 20:00 97.2 85 20 157/70 98 Room Air Intake and Output 03/26/17 03/27/17 19:00 07:00 Intake Total 943.0 ml 960.0 ml Output Total 1525 ml Balance 943.0 ml -565.0 ml Intake Oral 120 ml 200 ml IV Total 823.0 ml 760.0 ml Output Urine Total 1525 ml Laboratory Tests 03/27/17 04:55: White Blood Count 9.1, Red Blood Count 3.14L, Hemoglobin 10.6L, Hematocrit 31.1L , Mean Corpuscular Volume 99, Mean Corpuscular Hemoglobin 33.6H, Mean Corpuscular Hemoglobin Concent 34.0, Red Cell Distribution Width 14.8, Platelet Count 386, Mean Platelet Volume 6.5, Neutrophils (%) (Auto) 71.1, Lymphocytes (% ) (Auto) 14.8L, Monocytes (%) (Auto) 9.9, Eosinophils (%) (Auto) 2.2, Basophils (%) (Auto) 2.0, Sodium Level 143, Potassium Level 3.8, Chloride Level 111H, Carbon Dioxide Level 22, Anion Gap 10, Blood Urea Nitrogen 12, Creatinine 1.1, Estimat Glomerular Filtration Rate , Glucose Level 119H, Calcium Level 7.7L Height (Feet): 5 Height (Inches): 4.00 Weight (Pounds): 110 General Appearance: no apparent distress, alert EENT: normal ENT inspection Neck: normal alignment Cardiovascular: normal rate Respiratory/Chest: lungs clear Abdomen: non tender, no organomegaly Neurologic: coordinator volunteer services II-XII grossly normal CLAUDETTE GARCÍA Mar 27, 2017 17:59
[2017-03-27] MEDS ORDERED: Eliquis 2.5mg tablet ORAL SCH (18:00)
--- NOTE | 2017-03-28 11:36 | Diagnostic Imaging Report ---
APPROVED REPORT CPT Code: 36843 Present Symptoms Comments: R/O DVT BILATERAL: Imaging reveals a patent deep venous system bilaterally. There is no evidence of thrombus within the femoral, popliteal or tibial segments. The greater saphenous veins are also within normal limits. Doppler indicates normal spontaneous flow within these segments.
--- NOTE | 2017-03-28 16:30 | Progress Note ---
DATE: 03/27/2017 CARDIOLOGY PROGRESS NOTE SUBJECTIVE: The patient is awake, alert, and interactive, but withdrawn. She has a poor appetite. No nausea or vomiting. She complains of mild abdominal discomfort. PHYSICAL EXAMINATION: VITAL SIGNS: Afebrile. Vitals are stable. Monitored sinus. LUNGS: Clear. CARDIAC: Regular. Normal S1, S2. ABDOMEN: Soft and nontender. No guarding or rebound. EXTREMITIES: Without edema. DIAGNOSTIC AND LABORATORY DATA: Venous duplex negative for DVT. CAT scan with no mass noted. White count 9 and hemoglobin 10.6. BUN 12 and creatinine 1.1. IMPRESSION: 1. Urinary tract infection with sepsis, now resolved. 2. Acute renal failure, recovered. 3. Urinary retention. 4. Status post shingles. 5. Status post pulmonary embolus. 6. Hypertensive heart disease. 7. Moderate protein-calorie malnutrition. 8. Status post acute myocardial infarction. PLAN: Full anticoagulation with apixaban. Complete antibiotics. Continue Polk catheter. Voiding trial to follow. Mobilize with encouragement. One-to-one feeding. Aspiration precautions. Maintain current cardiovascular regimen. Jus Cool M.D. DR: BARBARA JOB#: [id number] CC:
--- NOTE | 2017-03-30 11:17 | Discharge Summary ---
Discharge Summary Hospital Course Date of Admission Mar 17, 2017 at 17:51 Date of Discharge Mar 27, 2017 at 22:07 Admitting Diagnosis SEPSIS, AMS HPI Brodie Chen is a 89 year old female who was admitted on Mar 17, 2017 at 17: 51 for Altered Mental Status Hospital Course dc summary #[id number] Discharge Medications Continued Medications: Acetaminophen* (Tylenol Extra Strength*) 500 Mg Tablet 325 MG ORAL Q4HR PRN for Mild Pain/Temp > 100.5, TAB 0 Refills Docusate Sodium* (Docusate Sodium*) 100 Mg Capsule 200 MG ORAL DAILY Ergocalciferol (Vitamin D2) (Vitamin D2) 2,000 Unit Tablet 2000 UNIT PO BID, TAB Erythromycin Base (Erythromycin*) 3.5 Gm Oint...g. 1 APPLIC BOTH EYES BID Ferrous Sulfate (Ferrous Sulfate) 220 Mg/5 Ml Elixir 330 MG PO DAILY Gabapentin* (Neurontin*) 100 Mg Capsule 300 MG ORAL THREE TIMES A DAY, #15 CAP 0 Refills Omeprazole Magnesium (Prilosec Otc) 20 Mg Tablet.dr 20 MG ORAL DAILY, TAB Prednisolone Acetate (Prednisolone Acetate) 5 Ml Drops.susp 1 DRP RIGHT EYE Q3HR Rivaroxaban (Xarelto) 15 Mg Tablet 15 MG ORAL BID Sennosides (Senokot) 8.6 Mg Tablet 8.6 MG PO DAILY Sitagliptin Phos/Metformin Hcl (Janumet 50-500 Mg Tablet) 1 Each Tablet 1 TAB ORAL TWICE A DAY, TAB Discharge Condition Upon Discharge: stable Discharge Disposition Patient was discharged to SNF/Subacute Facility(03) Discharge Diagnoses: Discharge Instructions Discharge Instructions Special Instructions I have been assigned to complete a D/C Summary on this account. I was not involved in the patient management Sara Courtney NP ([place]anchtein) Mar 30, 2017 11:17
--- NOTE | 2017-03-31 01:30 | Discharge Summary 2 SIG ---
DATE OF ADMISSION: 03/17/2017 DATE OF DISCHARGE: 03/27/2017 REASON FOR ADMISSION: 89-year-old female, with past medical history significant for hypertension, diabetes, large PE, and recent history of zoster infection with possible herpes encephalitis., presented to emergency department for evaluation of fever ( fever at SNF 102) and altered level of consciousness. In ED the patient was afebrile, tachycardic. WBC -20. Urinalysis was grossly positive for urinary tract infection. BUN -41, creatinine -2.9, and lactic acid -1.2. Septic workup initiated. The patient was pancultured and admitted for further management with diagnoses of sepsis, urinary tract infection, renal insufficiency, and history of shingles. HOSPITAL COURSE: The patient was admitted. ID, Nephrology, and Cardiology consults initially were requested. The patient was started on the IV fluids. The patient was started on empiric antibiotics. Antibiotic regimen was subsequently optimized based on culture per ID specialist. Influenza screen was negative. Blood culture revealed E. coli ESBL. Urine culture revealed E. coli ESBL. The patient status post treatment with antibiotics for bacteremia and urinary tract infection. Right arm PICC line was discontinued. Catheter tip showed no growth. Leukocytosis, resolved. Afebrile. [employer] Former and urologist closely followed the patient. Initially on admission , the patient with BUN 41 and creatinine -2.9. Renal ultrasound revealed mild bilateral hydronephrosis, non-echogenic bilateral kidneys. According to pals nurse, the patient had acute kidney injury on chronic kidney disease stage 3. The patient was on the IV fluids. Renal parameters and electrolytes were closely monitored. Electrolytes were replaced as needed. Prior to discharge, creatinine down to 1.1. BUN down to 12. Urologist followed the patient for urinary retention. According to urologist, the patient likely had neurogenic bladder. The patient had a Polk catheter with mild hydronephrosis bilaterally, which likely was from the bladder distention. He recommended to repeat imaging in the future. Flomax was added to existing regimen. He recommended voiding trial soon when medically optimized and consider in future cystoscopy with urethral dilatation and urecholine. Cardiology closely followed. The patient with a history of ischemic cardiomyopathy and chronic diastolic congestive heart failure. Cardiorenal parameters and volumes were closely monitored. Anticoagulation was resumed with Xarelto for large recent PE. Venous duplex revealed no evidence of acute DVT. On telemetry, the patient showed, at some point , episode of atrial fibrillation with rapid ventricular response. The patient was on anticoagulation and beta-nga added for rate control. Antihypertensive medication regimen was titrated to keep blood pressure under control. Cardiac status was closely monitored and optimized. Initially, CT of the head revealed no evidence of acute intracranial hemorrhage , mass effect, or shift. Acute encephalopathy initially present was likely secondary to severe sepsis. Abdominal and pelvis CT revealed no definite acute process, but mild renal collecting system fullness and urothelial thickening could indicate pyelonephritis and compression fracture deformity of T12 vertebral body. Chest x-ray revealed evidence of left mid lung nodular opacity versus nipple shadow. Etiologist consult was requested for possible pulmonary nodule. CT of the chest subsequently was done and showed focus of osteosclerosis of the anterior left fourth rib accounting for the nodular opacity described on recent chest radiograph. No evidence of lung mass. No acute pulmonary process. Etiologist recommended pulmonary toilet and supplemental oxygen to keep pulse oximetry above 92%. Pulse oximetry was stable on the room air. The patient undergone swallow evaluation and video swallow evaluation. Video swallow evaluation showed evidence of aspiration. GI specialist followed the patient. The patient initially was supposed to have esophagogastroduodenoscopy with percutaneous endoscopic gastrostomy, but it was canceled due to hemoptysis. Anticoagulation was stopped for some time secondary to hemoptysis. Optometrist/Practice Owner recommended to resume if no further bleeding. There was no further bleeding. Stable hemoglobin and hematocrit. Hemoptysis resolved. Xarelto resumed. Diet to be continued as recommended by speech therapist with strict aspiration and reflux precautions. The patient had anemia. Stool OB was negative. Counts were closely monitored. No need for transfusion. Monitor counts at the facility. Transfuse only if symptomatic or hemoglobin below 7. Goal to keep hemoglobin above 7. The patient had abnormal LFT, which were monitored, trending down and normal prior to discharge. GI closely followed. CT A/P no acute intra-abdominal process noted. Oral fluids were pushed. Blood sugar was managed with sliding scale of insulin and remained stable. Wound care provided as per wound care nurse recommendation for sacral coccyx pressure ulcer deep tissue injury present on admission. The patient was stable for discharge to half-way facility. Overall prognosis poor. FINAL DIAGNOSES: 1. Sepsis with Escherichia coli extended spectrum beta-lactamase bacteremia (secondary to urinary tract infection), status post treatment. 2. Escherichia coli extended spectrum beta-lactamase urinary tract infection, possible pyelonephritis, status post treatment. 3. 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 4. Acute on chronic encephalopathy. 5. Acute kidney injury on chronic kidney disease stage 3, resolved. 6. Dehydration. 7. Paroxysmal atrial fibrillation with rapid ventricular response, resolved. 8. Dehydration. 9. Chronic diastolic congestive heart failure. 10. Ischemic cardiomyopathy. 11. Hypertensive heart disease. 12. Recent history of large pulmonary embolism. 13. Status post myocardial infarction. 14. Diabetes mellitus type 2. 15. Anemia. 16. Hydronephrosis, presumably secondary to bladder outlet obstruction. 17. Abnormal liver function tests, resolved. 18. Urinary retention, probably neurogenic bladder. 19. Electrolyte abnormality: hypokalemia and hyponatremia. 20. Sacral coccyx deep tissue injury pressure ulcer, present on admission. DISCHARGE MEDICATIONS: See medication reconciliation list. DISCHARGE INSTRUCTIONS: The patient was discharged to half-way facility. Follow up with medical doctor at the facility. Terry Piña M.D. I have been assigned to dictate discharge summary on this account and I was not involved in the patient's management. Sara CruzNassau University Medical CenterLuz N.PBenedict DR: LIZZETH JOB#: [id number] CC: AISHA
== END 2017-03-27 22:07 | DRG 871 ==
LOC: EDBD 16:54 → EMR 17:40 → 2E 17:51 → ENRESERV 18:21 → EDBEDREQ 18:30
DX: A41.51 Sepsis due to Escherichia coli [E. coli] (principal); J18.9 Pneumonia, unspecified organism; E43 Unspecified severe protein-calorie malnutrition; B00.4 Herpesviral encephalitis; N17.9 Acute kidney failure, unspecified; I13.0 Hypertensive heart and chronic kidney disease with heart failure and stage 1 through stage 4 chronic kidney disease, or unspecified chronic kidney disease; G92 Toxic encephalopathy; E87.0 Hyperosmolality and hypernatremia; I50.32 Chronic diastolic (congestive) heart failure; Z68.1 Body mass index [BMI] 19.9 or less, adult; N12 Tubulo-interstitial nephritis, not specified as acute or chronic; N13.30 Unspecified hydronephrosis; I48.0 Paroxysmal atrial fibrillation; N18.3 Chronic kidney disease, stage 3 (moderate); E11.22 Type 2 diabetes mellitus with diabetic chronic kidney disease; K72.90 Hepatic failure, unspecified without coma; D53.9 Nutritional anemia, unspecified; R65.20 Severe sepsis without septic shock; I25.5 Ischemic cardiomyopathy; E86.0 Dehydration; E87.6 Hypokalemia; R33.9 Retention of urine, unspecified; N31.9 Neuromuscular dysfunction of bladder, unspecified; N28.1 Cyst of kidney, acquired; E11.65 Type 2 diabetes mellitus with hyperglycemia; E83.42 Hypomagnesemia; E87.8 Other disorders of electrolyte and fluid balance, not elsewhere classified; I25.2 Old myocardial infarction; Z16.12 Extended spectrum beta lactamase (ESBL) resistance; L89.150 Pressure ulcer of sacral region, unstageable; Z79.4 Long term (current) use of insulin; Z86.711 Personal history of pulmonary embolism; Z66 Do not resuscitate
CPT/HCPCS: 36415; 36600; 70450; 71045; 71250; 74176; 74230; 76775; 80048; 80053; 81003; 82270; 82550; 82553; 82570; 82607; 82746; 82803; 82962; 83540; 83550; 83605; 83690; 83735; 83880; 83935; 84100; 84300; 84484; 84550; 85007; 85025; 85610; 85730; 86710; 87040; 87070; 87081; 87086; 87181; 93005; 93970; 94760; 99285; J1815; J2405; J8499